=== PATIENT | male | born 1985 | race Caucasian/White ===

== ENCOUNTER 2018-08-05 05:25 | Emergency (ER) | payer MEDICAID, SELFPAY ==
[2018-08-05] VITALS (42 sets, daily range): BP systolic 112–135; BP diastolic 63–90; PULSE 63–81; RESP 6–20; TEMP 36.9; O2SAT 94–98
--- NOTE | 2018-08-05 05:45 | DI.RAD_ITS ---
SYMPTOM/DIAGNOSIS: BILATERAL CHEST PAIN PA AND LATERAL CHEST: Comparison is made with 17 July 2015. Cardiac and mediastinal contours have a normal appearance. The lungs are well inflated and clear. No infiltrate, effusion or pneumothorax is seen. IMPRESSION: Negative chest x-ray
--- NOTE | 2018-08-05 05:52 | ED.GENADUL_ITS ---
Discharge Plan Disposition Patient Disposition: HOME Condition: Improving Discharge Details Chief Complaint: Chest Pain Clinical Impression: Gastritis Primary Care Provider: Sin Leavitt ED Provider: Jovanny Marx Home Meds and New Rx's Prescriptions: New ranitidine HCl 150 mg capsule 150 mg PO DAILY Qty: 30 RF: 0 Continued albuterol sulfate 90 mcg/actuation HFA aerosol inhaler 2 puff IH QID PRNRF: 0 methocarbamol [Robaxin] 500 mg tablet 500 mg PO QID RF: 0 Discharge Instructions Instructions: Gastritis (ED) Additional Instructions: Continue efforts to decrease tobacco use by 50%. Begin Zantac as prescribed for 30 days, taken in the evening. Follow-up with Dr. Leavitt for recheck in 1-2 weeks. Call for an appointment time. Return to the emergency department for any acute concern. Discharge Data Discharge Date/Time-TO BE ENTERED AT DEPARTURE: 08/05/18 09:56 Medical Decision Making <Anibal Arndt MD - Last Filed: 08/10/18 08:02> 5:45 --32-year-old male smoker here with bilateral anterior chest pain with associated diaphoresis and shortness of breath that lasted 1-2 hours this morning. Now resolved. Hemodynamically stable. ECG reviewed and interpreted by me: Normal sinus rhythm 81 bpm, normal axis, no ischemic findings. Patient is low risk for ACS. Plan to check a troponin. Consider pneumothorax: will check cxr. Low risk for PE by Wells criteria: will check ddimer. 6:20 --chest x-ray reviewed and interpreted by me: Normal mediastinum, no pneumothorax. Initial trop negative <0.02. Plan for delta trop. ddimer pending. Mild hypomagnesemia. Will give 800mg mag ox PO. 7:30 -- Care signed out to Dr. Marx. <Jovanny Marx MD - Last Filed: 08/05/18 09:33> Received signout from Dr. Arndt pending repeat troponin. Please see his note regarding details of the patient's presentation, history, for details of the case. Improved, repeat troponin negative. Patient stable for outpatient management. 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 He notes intermittent episodes of gastric burning discomfort Modified by food choices over years time. I discussed with him decreasing his tobacco use and trialing 30 days of Zantac. He will follow-up with primary care for recheck in Dr. Tree leslie Lab Data Lab results reviewed: Yes I reviewed the patient's lab results. Laboratory Tests Range/Units 08/05/18 08/05/18 08/05/18 05:48 05:48 05:48 WBC (4.4-10.8) k/cumm 7.14 RBC (4.50-6.00) m/cumm 5.17 Hgb (13.5-17.5) g/dL 15.4 Hct (40.0-50.0) % 46.1 MCV (80-95) fL 89.2 MCH (27.0-33.0) pg 29.8 MCHC (32.0-36.0) g/dL 33.4 RDW (11.8-14.1) % 13.5 Plt Count (130-400) x1000/uL 227 MPV (8.0-11.0) fL 10.4 Immature Gran % 0.1 Neutrophils % 59.4 Lymphocytes % 27.2 Monocytes % 10.1 Eosinophils % 2.9 Basophils % 0.3 Absolute Neutrophils (1.2-6.7) k/cumm 4.24 Absolute Lymphocytes (1.2-3.4) k/cumm 1.94 Absolute Monocytes (0.11-0.7) k/cumm 0.72 H Absolute Eosinophils (0.0-0.7) k/cumm 0.21 Absolute Basophils (0.0-0.2) k/cumm 0.02 D-Dimer (<500) ng/mlFEU 112 Sodium (136-145) mmol/L 143 Potassium (3.5-5.1) mmol/L 3.8 Chloride (98-107) mmol/L 103 Carbon Dioxide (21.0-32.0) mmol/L 28.8 Anion Gap (3-11) mmol/L 11.2 H BUN (7-18) mg/dL 19 H Creatinine (0.70-1.30) mg/dL 1.10 Estimated GFR/1.73 m2 (mL/min/1.73m2) >= 60.00 Glucose (70-100) mg/dL 117 H Calcium (8.5-10.1) mg/dL 10.6 H Magnesium (1.8-2.4) mg/dL Total Bilirubin (0.2-1.0) mg/dL 0.3 AST (15-37) U/L 22 ALT (12-78) U/L 45 Alkaline Phosphatase (46-116) U/L 63 Troponin I (0.00-0.06) ng/mL Total Protein (6.4-8.2) g/dL 7.3 Albumin (3.4-5.0) g/dL 3.9 Range/Units 08/05/18 05:48 WBC (4.4-10.8) k/cumm RBC (4.50-6.00) m/cumm Hgb (13.5-17.5) g/dL Hct (40.0-50.0) % MCV (80-95) fL MCH (27.0-33.0) pg MCHC (32.0-36.0) g/dL RDW (11.8-14.1) % Plt Count (130-400) x1000/uL MPV (8.0-11.0) fL Immature Gran % Neutrophils % Lymphocytes % Monocytes % Eosinophils % Basophils % Absolute Neutrophils (1.2-6.7) k/cumm Absolute Lymphocytes (1.2-3.4) k/cumm Absolute Monocytes (0.11-0.7) k/cumm Absolute Eosinophils (0.0-0.7) k/cumm Absolute Basophils (0.0-0.2) k/cumm D-Dimer (<500) ng/mlFEU Sodium (136-145) mmol/L Potassium (3.5-5.1) mmol/L Chloride (98-107) mmol/L Carbon Dioxide (21.0-32.0) mmol/L Anion Gap (3-11) mmol/L BUN (7-18) mg/dL Creatinine (0.70-1.30) mg/dL Estimated GFR/1.73 m2 (mL/min/1.73m2) Glucose (70-100) mg/dL Calcium (8.5-10.1) mg/dL Magnesium (1.8-2.4) mg/dL 1.7 L Total Bilirubin (0.2-1.0) mg/dL AST (15-37) U/L ALT (12-78) U/L Alkaline Phosphatase (46-116) U/L Troponin I (0.00-0.06) ng/mL < 0.02 Total Protein (6.4-8.2) g/dL Albumin (3.4-5.0) g/dL HPI <Anibal Arndt MD - Last Filed: 08/10/18 08:02> General Mode of arrival: ambulatory . Date/Time Provider Initiated Documentation: 08/05/18 05:43 . Limitations to Documentation: no limitations . Information obtained by: patient . HPI Narrative: 32-year-old male smoker presents with chief complaint of chest pain. Patient notes that he has had intermittent chest pain that occurs monthly over the past year. Today he woke up around 2 AM with chest pain that was bilateral chest. Pain lasted about an hour and then resolved. He had associated diaphoresis and some shortness of breath. Patient has had a cough recently. Symptoms were moderate with no modifiers. He continues to have some mild chest pain over his sternum that is reproducible on palpation. Patient denies recent trauma. No recent long distance travel or immobility. No calf pain or lower extremity swelling. Related Data Home Medications Medication Instructions Recorded Confirmed albuterol sulfate HFA 90 2 puff IH QID PRN 05/06/18 08/05/18 mcg/actuation aerosol inhaler methocarbamol 500 mg tablet 500 mg PO QID 05/06/18 08/05/18 ranitidine HCl 150 mg PO DAILY #30 cap 08/05/18 Previous Rx's Medication Instructions Recorded ranitidine HCl 150 mg PO DAILY #30 cap 08/05/18 Allergies Allergy/AdvReac Type Severity Reaction Status Date / Time Penicillins Allergy Intermediate Skin Rash Unverified 08/05/18 07:00 Nuts AdvReac Intermediate scratchy Uncoded 08/05/18 07:00 throat, per pt General Stated Complaint: Chest Pain STEFAN: 2 Review of Systems <Anibal Arndt MD - Last Filed: 08/10/18 08:02> Review of Systems All systems reviewed & are unremarkable except as noted in HPI and below PFSH <Anibal Arndt MD - Last Filed: 08/10/18 08:02> Back pain (Chronic) Social History Smoking/Tobacco Use Status: Current every day Exam <Anibal Arndt MD - Last Filed: 08/10/18 08:02> Const General: cooperative and no acute distress HENMT Head: normocephalic and atraumatic Mouth: moist mucous membranes Eyes Conjunctivae: normal conjunctivae Sclera: normal sclerae Neck Neck: trachea midline and supple Resp Auscultation: clear to auscultation bilaterally, no rales, no rhonchi and no wheezes Cardio Jugular venous pressure: no JVD Rate: regular rate and not tachycardic Rhythm: regular rhythm GI Palpation: soft, not firm, no guarding, no masses, not rigid and nontender Skin General skin exam: no rashes or lesions noted Neuro General: alert, awake, oriented x3 and tone normal Extrem General: no calf tenderness and no edema Psych Appearance: grossly normal Mental Status: mental status grossly normal Speech and Movement: speech and movement normal Course <Anibal Arndt MD - Last Filed: 08/10/18 08:02> Vital Signs Temperature 36.9 C 08/05/18 05:29 Pulse 81 08/05/18 05:29 Respiratory Rate 18 08/05/18 05:29 Blood Pressure 135/90 08/05/18 05:29 Pulse Oximetry 98 08/05/18 05:29 Temperature 36.9 C 08/05/18 05:29 Temperature Source Temporal Artery Scan 08/05/18 05:29 Pulse 81 08/05/18 05:29 Respiratory Rate 20 08/05/18 05:39 Respiratory Effort Non-Labored 08/05/18 05:39 Respiratory Depth Normal 08/05/18 05:39 Respiratory Pattern Normal 08/05/18 05:39 Blood Pressure 135/90 08/05/18 05:29 Blood Pressure Position Sitting 08/05/18 05:29 Pulse Oximetry 98 08/05/18 05:29 Oxygen Delivery Method Room Air 08/05/18 05:29 Oxygen Flow Rate 0 08/05/18 05:29 Pain Level 0 08/05/18 05:29 Sign Out <Anibal Arndt MD - Last Filed: 08/10/18 08:02> Sign Out Data: Sign Out Comment: Follow-up delta trop and disposition patient. Last updated by Anibal Arndt MD at 08/05/18 07:36
[2018-08-05 05:56] LABS: Abs Immature Grans 0.01 k/cumm (0.0-0.09); Absolute Basophil Count 0.02 k/cumm (0.0-0.2); Absolute Eosinophil Count 0.21 k/cumm (0.0-0.7); Absolute Lymphocyte Count 1.94 k/cumm (1.2-3.4); Absolute Monocyte Count 0.72 k/cumm (0.11-0.7); Absolute Neutrophil Count 4.24 k/cumm (1.2-6.7); Basophils % 0.3; Eosinophils % 2.9; HCT 46.1 % (40.0-50.0); HGB 15.4 g/dL (13.5-17.5); Immature Grans % 0.1; Lymphocytes % 27.2; Mean Corp. HGB Concentration 33.4 g/dL (32.0-36.0); Mean Corpuscular Hemoglobin 29.8 pg (27.0-33.0); Mean Corpuscular Volume 89.2 fL (80-95); Mean Platelet Volume 10.4 fL (8.0-11.0); Monocytes % 10.1; Neutrophils % 59.4; Platelet Count 227 x1000/uL (130-400); RBC 5.17 m/cumm (4.50-6.00); RBC Distribution Width 13.5 % (11.8-14.1); White Blood Cell Count 7.14 k/cumm (4.4-10.8)
[2018-08-05 06:10] LABS: ALT 45 U/L (12-78); AST 22 U/L (15-37); Albumin 3.9 g/dL (3.4-5.0); Alkaline Phosphatase 63 U/L (46-116); Anion Gap 11.2 mmol/L (3-11); BUN 19 mg/dL (7-18); Bilirubin, Total 0.3 mg/dL (0.2-1.0); CO2 28.8 mmol/L (21.0-32.0); Calcium 10.6 mg/dL (8.5-10.1); Chloride 103 mmol/L (98-107); Glucose 117 mg/dL (70-100); Potassium 3.8 mmol/L (3.5-5.1); Sodium 143 mmol/L (136-145); Total Protein 7.3 g/dL (6.4-8.2)
[2018-08-05 06:13] LABS: Magnesium 1.7 mg/dL (1.8-2.4)
[2018-08-05 06:17] LABS: Troponin I < 0.02 ng/mL (0.00-0.06)
[2018-08-05 06:28] LABS: D-Dimer 112 ng/mlFEU (<500)
--- NOTE | 2018-08-05 06:48 | DI.VRAD_ITS ---
EXAM: XR Chest, 2 Views EXAM DATE/TIME: 08/05/2018 5:46 AM CLINICAL HISTORY: 32 years old, male; Pain; Chest pain; Other: Bilaterally TECHNIQUE: XR of the chest, 2 views. COMPARISON: CR CHEST 2 VIEWS PA,LAT 07/17/2015 6:42 PM FINDINGS: Lungs: Unremarkable. No consolidation. Pleural space: Unremarkable. No pleural effusion. No pneumothorax. Heart/Mediastinum: Unremarkable. No cardiomegaly. Bones/joints: Unremarkable. IMPRESSION: No acute intrathoracic process. Similar to previous. Dictated and Authenticated by: Eric Estrada MD. Ordering:RIC KEARNS MD
[2018-08-05] MEDS: Magnesium Oxide 400 MG TAB 800 MG PO (07:01)
[2018-08-05 09:16] LABS: Troponin I < 0.02 ng/mL (0.00-0.06)
== END 2018-08-05 09:56 | disposition home or self-care (01) ==
PROVIDERS: Student in an Organized Health Care Education/Training Program; Emergency Provider Emergency Medicine; PCP Family Medicine
DX: K29.00 Acute gastritis without bleeding (principal); E83.42 Hypomagnesemia
CPT/HCPCS: 36415; 80053; 93005; 99285; 71046; 83735; 84484; 85025; 85379; 93010; 99284

== ENCOUNTER 2019-02-08 16:13 | Emergency (ER) | payer MEDICAID, SELFPAY ==
--- NOTE | 2019-02-08 16:21 | NUR.NOTE ---
Nursing Note: pr slipped on a rock wile fishing [id number] landing on his left shoulder. pt states that he has dislocated it 5-9 times in the past and states that the symptoms are exactly the same
[2019-02-08 16:23] VITALS: BP 125/68; PULSE 73; RESP 18; TEMP 36.5; O2SAT 96
--- NOTE | 2019-02-08 16:53 | DI.RAD_ITS ---
SYMPTOM/DIAGNOSIS: POSTERIOR LATEARAL SHOULDER PAIN S/P FALL LEFT SHOULDER: Comparison is made with 08 December 2012. No fracture or dislocation is seen. There is mild spurring at the glenoid. There is no significant AC joint spurring. IMPRESSION: No acute abnormality.
--- NOTE | 2019-02-08 17:01 | ED.GENADUL_ITS ---
Discharge Plan Disposition Patient Disposition: HOME Discharge Details Chief Complaint: Orthopedic Clinical Impression: Injury of left shoulder Primary Care Provider: Sin Leavitt ED Provider: Omar Stuart Discharge Instructions Instructions: Shoulder Sprain (ED), Shoulder Pain (ED) Additional Instructions: X-rays were negative for fracture or dislocation in the emergency department. Wear a simple sling for comfort. Work on range of motion at home. If pain persists over the next 2 weeks you need to follow-up with orthopedics. Discharge Data Discharge Date/Time-TO BE ENTERED AT DEPARTURE: 02/08/19 17:49 Medical Decision Making This is a nontoxic-appearing 33-year-old male status post left shoulder injury. No acute skeletal injury on x-ray. Possible subluxation in the field. Neurovascularly intact. No head or neck trauma. C-spine nontender. Lungs clear to auscultation. Plan is to place patient into a simple sling. Will have him follow-up with orthopedics should pain persist. Imaging Data Radiologic Study: Radiologist's impression: CLINICAL HISTORY: 33 years old, male; Left; Patient HX: Posterior lateral shoulder pain S/P fall TECHNIQUE: Imaging protocol: XR Left shoulder. Views: 2 or more views. COMPARISON: CR LEFT SHOULDER COMPLETE 12/08/2012 10:52 AM FINDINGS: Bones/joints: Osseous anatomic alignment is well preserved. No acutely displaced fracture or dislocation. Joint spaces are well preserved. Soft tissues: Globular-like soft tissue densities seen posteriorly on the scapular Y-view are similar to the reference exam and most likely represent muscle density. No acute soft tissue findings. IMPRESSION: Negative for acute skeletal pathology HPI General Date/Time Provider Initiated Documentation: 02/08/19 16:19 . HPI Narrative: Patient is a 33-year-old male with significant past medical history for previous left shoulder subluxation/dislocations who presents to the emergency department today status post fall while fishing roughly 1 hour prior to arrival. Patient states that he landed directly on his left shoulder. He has pain the posterior lateral aspect of the shoulder. He denies any head or neck trauma. He does have a small abrasion to the left johnson. He has been able to perform gentle range of motion at the shoulder. He denies any left wrist or elbow pain. No numbness however reports mild tingling in the left hand. No shortness of breath or chest pain Related Data Allergies Allergy/AdvReac Type Severity Reaction Status Date / Time Penicillins Allergy Intermediate Skin Rash Unverified 02/08/19 16:25 Nuts AdvReac Intermediate scratchy Uncoded 02/08/19 16:25 throat, per pt General Stated Complaint: Orthopedic STEFAN: 3 Review of Systems Constitutional Denies headache(s) and Denies weakness ENT Denies dizziness, Denies headache(s) and Denies neck pain Cardiovascular Denies chest pain, Denies lightheadedness and Denies dyspnea Respiratory Denies dyspnea Gastrointestinal Denies abdominal pain Musculoskeletal Denies abnormal gait, Denies deformity, Denies neck pain, Denies numbness, Reports radiating pain into limb, Denies stiffness and Reports tingling Integumentary/Breasts Reports wounds Neurologic Denies abnormal gait, Denies dizziness, Denies headache(s), Denies focal weakness, Denies numbness, Denies sensory deficit, Reports tingling and Denies weakness PFSH Medical History Back pain (Chronic) Social History Smoking/Tobacco Use Status: Current every day Tobacco Type: cigarettes and smokeless tobacco Alcohol Intake: current Alcohol Intake frequency: a few times a week Drug use: Daily Substance use type: marijuana Do you feel safe at home: Yes Do you feel safe in your relationship?: Yes Exam Const General: cooperative, healthy appearing and no acute distress Orientation: alert, awake and oriented x3 HENMT Head: normal to inspection General nose exam: external nose normal Face and sinus: normal facial exam Eyes General: appearance normal, both eyes and all related structures Alignment and Position: alignment normal EOM: EOM intact bilaterally Neck Neck: normal visual inspection, full ROM, no lymphadenopathy and supple Chest Chest: normal inspection of the chest and normal palpation of entire chest wall Resp Effort & Inspection: normal respiratory effort and able to speak in complete sentences Auscultation: clear to auscultation bilaterally Cardio Palpation: normal PMI Rate: regular rate Rhythm: regular rhythm Heart Sounds: S1 normal and S2 normal Pulses: normal peripheral pulses GI Inspection: normal to inspection Palpation: soft Back/Spine/Pelvis Cervical Spine: normal cervical lordosis and cervical ROM normal Thoracic/Lumbar Spine: thoracic and lumbar spine normal to inspection Neuro Motor: muscle tone normal throughout Sensory Exam: no sensory deficits noted Extrem Other: Several small superficial abrasions to the left anterior medial johnson Course Vital Signs Temperature 36.5 C 02/08/19 16:23 Pulse 73 02/08/19 16:23 Respiratory Rate 18 02/08/19 16:23 Blood Pressure 125/68 02/08/19 16:23 Pulse Oximetry 96 02/08/19 16:23 Temperature 36.5 C 02/08/19 16:23 Temperature Source Skin 02/08/19 16:23 Pulse 73 02/08/19 16:23 Respiratory Rate 18 02/08/19 16:23 Respiratory Effort 02/08/19 16:26 Blood Pressure 125/68 02/08/19 16:23 Blood Pressure Position Sitting 02/08/19 16:23 Pulse Oximetry 96 02/08/19 16:23 Oxygen Delivery Method Room Air 02/08/19 16:23 Oxygen Flow Rate 0 02/08/19 16:23 Pain Level 10 02/08/19 16:23
--- NOTE | 2019-02-08 17:14 | DI.VRAD_ITS ---
EXAM: XR Left Shoulder EXAM DATE/TIME: 02/08/2019 4:36 PM CLINICAL HISTORY: 33 years old, male; Left; Patient HX: Posterior lateral shoulder pain S/P fall TECHNIQUE: Imaging protocol: XR Left shoulder. Views: 2 or more views. COMPARISON: CR LEFT SHOULDER COMPLETE 12/08/2012 10:52 AM FINDINGS: Bones/joints: Osseous anatomic alignment is well preserved. No acutely displaced fracture or dislocation. Joint spaces are well preserved. Soft tissues: Globular-like soft tissue densities seen posteriorly on the scapular Y-view are similar to the reference exam and most likely represent muscle density. No acute soft tissue findings. IMPRESSION: Negative for acute skeletal pathology. Dictated and Authenticated by: Zhao Holman MD. Ordering:MARIA INES Nelson MD
[2019-02-08 17:48] VITALS: BP 116/77; PULSE 64; RESP 16; O2SAT 96
== END 2019-02-08 17:49 | disposition home or self-care (01) ==
PROVIDERS: Emergency Provider Physician Assistant; PCP Family Medicine
DX: M25.512 Pain in left shoulder (principal); W01.0XXA Fall on same level from slipping, tripping and stumbling without subsequent striking against object, initial encounter
CPT/HCPCS: 99283; 73030; 99282; L3650

== ENCOUNTER 2020-09-14 16:24 | Outpatient (REF) | payer MEDICAID, SELFPAY ==
[2020-09-16 18:20] LABS: COVID-19 RT-PCR Result NEGATIVE (Negative)
== END 2020-09-14 16:44 ==
LOC: LBN 16:24
PROVIDERS: Visit Provider Nurse Practitioner Family
DX: Z11.52 Encounter for screening for COVID-19 (principal)
CPT/HCPCS: U0003

== ENCOUNTER 2020-09-17 01:53 | Outpatient (CLI) | payer MEDICAID, SELFPAY ==
[2020-09-17 15:36] LABS: Abs Immature Grans 0.01 10^3/uL (0.0-0.06); Absolute Basophil Count 0.04 10^3/uL (0.0-0.2); Absolute Eosinophil Count 0.26 10^3/uL (0.0-0.7); Absolute Lymphocyte Count 2.73 10^3/uL (1.2-3.4); Absolute Monocyte Count 0.68 10^3/uL (0.1-0.8); Basophils % 0.5; Eosinophils % 3.5; HGB 14.9 g/dL (13.5-17.5); Immature Grans % 0.1; Lymphocytes % 36.8; MCH 29.9 pg (27.0-33.0); MCHC 33.9 % (32.0-36.0); MCV 88.4 fL (80-95); MPV 10.5 fL (8.0-11.0); Monocytes % 9.2; Neutrophils % 49.9; Nucleated RBC 0 %; Platelet Count 222 10^3/uL (130-400); RBC 4.98 10^6/uL (4.36-5.78); RDW 12.7 % (11.8-14.1); RDW-SD 41.2 fL; WBC 7.42 10^3/uL (4.4-10.8)
[2020-09-17 15:37] LABS: Bilirubin Negative (Negative); Blood Trace-intact (Negative); Clarity Clear (Clear); Glucose Negative (Negative); Ketones Negative (Negative); Leukocyte Esterase Negative (Negative); Nitrite Negative (Negative); Specific Gravity >= 1.030 (1.005-1.025); Urobilinogen 0.2 EU/dL (Up TO 0.2)
[2020-09-17 15:45] LABS: Bacteria Negative HPF (Negative); C & S Indicated? No; Casts Negative LPF (Negative); Crystals Negative HPF (Negative); Epithelial Cells Rare HPF (Negative); Mucus Negative (Negative); RBC 0-2 HPF (0-2); WBC 0-2 HPF (0-5)
[2020-09-17 16:41] LABS: ALT 34 U/L (16-63); Alkaline Phosphatase 80 U/L (46-116); Anion Gap 5.7 mmol/L (3-11); BUN 18 mg/dL (7-18); Bilirubin, Total 0.2 mg/dL (0.2-1.0); CO2 31.3 mmol/L (21.0-32.0); Chloride 103 mmol/L (98-107); Glucose 83 mg/dL (74-106); Potassium 4.1 mmol/L (3.5-5.1); Sodium 140 mmol/L (136-145); Total Protein 7.3 g/dL (6.4-8.2)
[2020-09-17 17:24] LABS: AST 22 U/L (15-37)
== END 2020-09-17 02:13 ==
PROVIDERS: Nurse Practitioner Family
DX: R10.33 Periumbilical pain (principal); K59.00 Constipation, unspecified
CPT/HCPCS: 36415; 80053; 74019; 81003; 81015; 85025

== ENCOUNTER 2020-09-17 03:47 | Outpatient (CLI) | payer MEDICAID, SELFPAY ==
--- NOTE | 2020-09-17 15:08 | DI.RAD_ITS ---
EXAM: 2D digital imaging was performed. CLINICAL HISTORY: abdominal pain, constipation,K59.00,R10.33. COMPARISON: No exams were available for comparison TECHNIQUE: Supine and uprightSupine and Lateral views of the abdomen was performed. FINDINGS: LUNG BASES: Clear. BOWEL GAS PATTERN: Nondistended. There is a moderate amount of retained stool. FREE AIR: None. CALCIFICATIONS: No radiopaque calcifications. OSSEOUS STRUCTURES: Normal for age. OTHER FINDINGS: None. IMPRESSION: Moderate amount of retained stool. DATA REPOSITORY: RADIATION DOSE DELIVERED:
== END 2020-09-17 04:07 ==
PROVIDERS: Visit Provider Nurse Practitioner Family
DX: K59.00 Constipation, unspecified (principal); R10.33 Periumbilical pain
CPT/HCPCS: 74019

== ENCOUNTER 2020-10-04 16:46 | Emergency (ER) | payer MEDICAID, SELFPAY ==
--- NOTE | 2020-10-04 17:03 | ED.GENADUL_ITS ---
Discharge Plan Disposition Patient Disposition: HOME Condition: Good Discharge Details Clinical Impression: Constipation Primary Care Provider: Lia Marino ED Provider: Crystal Brooks Home Meds and New Rx's Prescriptions: Continued famotidine [Acid Boardmarker (famotidine)] 20 mg tablet 20 mg PO DAILY Qty: 30 RF: 1 buprenorphine-naloxone [Suboxone] 8-2 mg film 2 film sublingual DAILY RF: 0 Discharge Instructions Instructions: Constipation (ED) Additional Instructions: Please continue to encourage water intake. You may continue with MiraLAX as previously advised by your primary care. Please try magnesium citrate which available [id number] as a laxative. Please follow instructions on the bottle for dosing. Please follow-up with primary care in the next week for reevaluation. If you develop fever/chills, abdominal pain or other new/worsening symptoms seek care urgently once again. Referrals: Lia Marino, [employer] TECHNICIAN [Primary Care Provider] - Medical Decision Making Patient pleasant 34-year-old male presenting today with chief complaint of stomach gurgling and constipation. He reports especially the past 2 weeks. Denies any fevers or chills. No abdominal pain. Denies any nausea vomiting. States that he feels like his appetite is diminished because he is full quickly. Has been passing flatus normally. No previous abdominal surgeries. He has not had issues like historically. States that he did speak with his primary care and was advised to start on MiraLAX. He reports that he also has blood work and imaging since the onset of symptoms. He states that he was scheduled to see primary care today but secondary to probably their office was, his appointment was canceled. Patient reports that he has had diverticulitis historically but that denies abdominal discomfort do not feel like this. On exam, patient is resting comfortably. His abdominal exam is benign with no tenderness elicited with palpation. No CVA tenderness. No peritoneal findings. Rectal exam was performed in the office, with negative stool, no fecal impaction I did review the patient lab has been ordered recently by his primary care for evaluation of his disease. No leukocytosis. Stable H&H. No abnormalities on CMP. Patient did have elevated specific gravity but otherwise no significant on his UA. Imaging was also reviewed. Patient was noted to have moderate amount of complaints. He and I discussed these findings at length. He and I discussed treatment options. Patient prefers to be discharged home and try something other than MiraLAX to help with constipation. Encourage water intake. I encouraged increased fiber in his diet. He will use magnesium citrate to help with bowel movements. Encourage close follow-up with primary care. Return precautions were discussed. All of his questions and concerns were addressed and he is agreement this plan. HPI General Mode of arrival: ambulatory . Date/Time Provider Initiated Documentation: 10/04/20 17:03 . Limitations to Documentation: no limitations . Information obtained by: patient, RN notes reviewed and old records reviewed . History of Present Illness 34 year old M presents to the emergency department with the chief complaint of constipation, abdominal gurgling, described as moderate, with intensity rated at 4. Quality is described as other (cramping and gurgling), and is localized to the abdomen. Patient reports no radiation. Patient started experiencing this week(s) ( 2) and it has been constant. No relieving factors improve symptom(s), No exacerbating factors reported . Patient notes no other symptoms.. Patient did receive the follo wing treatments prior to arrival, other (miralax) Related Data Home Medications Medication Instructions Recorded Confirmed buprenorphine 8 mg-naloxone 2 mg 2 film SUBLINGUAL DAILY ea 09/14/20 10/04/20 sublingual film famotidine 20 mg tablet 20 mg PO DAILY #30 tab 09/14/20 10/04/20 Previous Rx's Medication Instructions Recorded famotidine 20 mg tablet 20 mg PO DAILY #30 tab 09/14/20 Allergies Allergy/AdvReac Type Severity Reaction Status Date / Time Penicillins Allergy Intermediate Skin Rash Unverified 10/04/20 17:46 Nuts AdvReac Intermediate scratchy Uncoded 10/04/20 17:46 throat, per pt General STEFAN: 3 Review of Systems Constitutional Constitutional: Reports as per HPI, Denies chills, Denies fatigue, Denies fever(s) and Denies headache(s) ENT Ears, Nose, Mouth, and Throat: Denies headache(s) Cardiovascular Cardiovascular: Reports as per HPI, Denies chest pain and Denies dyspnea Respiratory Respiratory: Reports as per HPI, Denies cough and Denies dyspnea Gastrointestinal Gastrointestinal: Reports as per HPI Genitourinary Genitourinary: Denies system reviewed and no additional complaints, except as documented (patient denies any change in urinary habits) Musculoskeletal Musculoskeletal: Reports as per HPI and Denies back pain Integumentary/Breasts Skin/Breast: Reports as per HPI and Denies rash Neurologic Neurologic: Reports as per HPI and Denies headache(s) Endocrine Endocrine: Denies fatigue [facility] Medical History (Updated 10/04/20 @ 18:26 by OSITO Warren) Back pain Social History Smoking/Tobacco Use Status: Current every day Tobacco Type: cigarettes and smokeless tobacco Smoking risk assessment performed?: Yes Alcohol Intake: current Alcohol Intake frequency: a few times a month Drug use: Daily Substance use type: marijuana Do you feel safe at home: Yes Do you feel safe in your relationship?: Yes Exam Const General: cooperative, healthy appearing, comfortable, no acute distress and well developed Nutritional Appearance: average body habitus and well nourished Orientation: alert and awake HENMT Head: normal to inspection Mouth: moist mucous membranes Resp Effort & Inspection: normal respiratory effort, able to speak in complete sentences and no respiratory distress Auscultation: clear to auscultation bilaterally, no rales, no rhonchi and no wheezes Cardio Rate: regular rate Rhythm: regular rhythm Heart Sounds: S1 normal and S2 normal GI Inspection: normal to inspection Palpation: soft, no hepatosplenomegaly, not firm, no guarding, no hernias, no masses, no pulsatile masses, nontender and No ascites Percussion: normal to percussion Auscultation: normal bowel sounds Rectal Exam: visual inspection normal, normal sphincter tone, prostate normal, No fecal impaction, heme negative stool and No tenderness Back/Spine/Pelvis Back: no CVA tenderness Skin General skin exam: no rashes or lesions noted Trauma: no lacerations or abrasions Neuro General: patient alert and patient awake Cognition: normal cognition Speech: speech normal Gait: normal gait Psych Appearance: grossly normal and well kempt Mental Status: mental status grossly normal Speech and Movement: speech and movement normal
[2020-10-04 17:42] VITALS: BP 130/72; PULSE 67; RESP 18; TEMP 36.7; O2SAT 98
[2020-10-04 18:40] VITALS: BP 113/74; PULSE 68; RESP 16; TEMP 36.6; O2SAT 98
== END 2020-10-04 21:07 | disposition home or self-care (01) ==
PROVIDERS: Emergency Provider Physician Assistant
DX: K59.09 Other constipation (principal)
CPT/HCPCS: 99282; 99283

== ENCOUNTER 2021-11-28 18:28 | Outpatient (REF) | payer MEDICAID, SELFPAY ==
[2021-11-30 11:34] LABS: COVID-19 RT-PCR UVMMC Result Negative (Negative)
== END 2021-11-28 18:29 | disposition home or self-care (01) ==
LOC: LBN 18:28
PROVIDERS: PCP Nurse Practitioner Family; Visit Provider Nurse Practitioner Family
DX: Z20.822 Contact with and (suspected) exposure to COVID-19 (principal)
CPT/HCPCS: U0003

== ENCOUNTER 2022-03-13 01:28 | Outpatient (CLI) | payer MEDICAID, SELFPAY ==
--- OUTSIDE RECORDS SUMMARY | 2022-03-13 01:30 | XMS_ITS | Encounter Summary ---
:1985 Author Organization [facility] Address [address] [place] [address] Care Team Providers Name Role Phone Jamarcus Mccallum MD Primary Care Provider Unavailable Encounter Details Date Type Department Care Team Description 12/13/2011 Results Only [facility] Amy Hill, DO [phone] [facility] [address] (Wo rk) Social History Tobacco Use Types Packs/Day Years Used Date Never Assessed Sex Assigned at Date Recorded Not on file documented as of this encounter Plan of Treatment Not on filedocumented as of this encounter Procedures Procedure Name Priority Date/Time Associated Diagnosis Comme [facility] SURGICAL PATHOLOGY Routine 12/13/2011 0:00 EDT Re sults for this procedure are i n the results section. documented in this encounter Results SURGICAL PATHOLOGY (12/13/2011 0:00 EDT) Pathology Report: SURGICAL PATHOLOGY REPORT HENRRY CEDENO Reports generated via electronic interface contain lauren ginal data; LAB however they are lacking the format of the original re port. Caution should be taken when reading/interpreting unfo rmatted reports. Name: ? RADHA CABRERA ? Accession #: ? [id number] ? : ? 1985 (Age: 26) ??M ? Collect Date: ? 12/13/2011 ? Location: ? [facility] ? Receive Date: ? 012 ? Provider: AMY HILL DO Copy to: BEBA MCNEILL ? Final Pathologic Diagnosis: ? Soft tissue, cyst, excision: - Pilonidal cyst and fistula tract. ??See comment. Comment: ? The cyst and fistula tract appear entirel y excised. ??(Dr. Ely)/sandy Document reviewed and electronically signed by: ILDEFONSO ELY MD Report ??Date: 12/15/2011 13:02 By the signature above, the attending physician certif ies that he/she has personally conducted a gross and/or microscopic examin ation of the described specimens and rendered or confirmed the above diagnosi s. Specimen(s) Received: ? Pilonidal cyst tract Clinical History: ? Pilonidal cyst Gross Description: ? Received in formalin labelled Cabrera, Radha and pilonidal cyst tract is a 6.5 x 2.0 cm unoriented elliptical excision of krause-whi te hairbearing skin excised to an average depth of 1.6 cm. ??Running along the entire length of the skin, there is a curvilinear crease that has numerous defects through the epidermal surface into the u nderlying soft tissue with exuding krause-red granular soft tissue and hair. ??The margins are entirely inked black. ??Sectioning reveals a krause-red focally hemorrhagic tract coursing through t he soft tissue of the specimen that has a maximum diameter of 0.6 cm and focally contains hair. ??This tract is 0.2 cm from the gurpreet rest black inked resection margin, and is surrounded by dense krause-white fibrous tissue. ??Paper Reel Operator ce ntral sections of the specimen are submitted in (A1) and (A2) and the tips are submitted reverse en face in (A3). ??(Barbara Martínez/[facility] End of Report Specimen Performing Organization Address City/State/ZIP Code Phon e Number [facility] [address] [place] [address] SERVICES [facility] [address] [place] [address] documented in this encounter Visit Diagnoses Not on filedocumented in this encounter Care Teams Holter Scanning Technician Relationship Specialty Start Date End Date Jamarcus Mccallum MD PCP - General 02/10/11 12/14/11 documented as of this encounter
--- OUTSIDE RECORDS SUMMARY | 2022-03-13 01:30 | XMS_ITS | Encounter Summary ---
:[address] [facility] Address [address] [place] [address] Care Team Providers Name Role Phone Sin Leavitt MD Primary Care Provider Unavailable Encounter Details Date Type Department Care Team Description 11/29/2021 Lab Requisition [facility] Outr Resulting Lab, Pathology & Laboratory Provider [facility] [address] [place] [address] Social History Tobacco Use Types Packs/Day Years Used Date Current Some Day Smoker Smokeless Tobacco: Current User Chew Alcohol Use Standard Drinks/Week Comments No 0 (1 standard drink = 0.6 oz pure alcoho l) Sex Assigned at Date Recorded Not on file documented as of this encounter Plan of Treatment Not on filedocumented as of this encounter Procedures Procedure Name Priority Date/Time Associated Diagnosis Comme nts COVID-19 TEST [facility] Today 11/28/2021 8:45 EDT LAB PCR COVID-19 TESTING Routine 11/28/2021 8:45 EDT Resu lts for this procedure are i n the results section. documented in this encounter Results COVID-19 TEST [facility] PCR (11/28/2021 8:45 EDT) Specimen Swab Performing Organization Address City/State/ZIP Code Phon e Number [facility] [address] [place] [address] SERVICES COVID-19 TESTING (11/28/2021 8:45 EDT) COVID-19 rt-PCR Negative Negative [facility] Result Comment: [facility] This test has not been FDA c leared or approved. This test has been authorized by FDA under an EUA for use by authorized laboratories. This test has been authorized only for detection of nucleic acid fro SERVICES m 2018-nCoV, not for any oth er viruses or pathogens. This test is only authorized for the duration of the declaration that circumstances exist justifying the authorization of emergency use of in vitro d iagnostic tests for detectio n and/or diagnosis of 2019-nCoV under section 564(b)(1) of Act, 21 U.S.C ?? 360bbb-3(b) (1), unless the authorization is terminated or revoked sooner. Negative results do not prec lude 2019-nCoV infection and should not be used as the sole basis for treatment or other patient management decisions. Negative results must be combined with clinical observa tions, patient history, and epidemiological informatio n. Testing was performed using the ronal SARS-CoV-2 assay ([employer] on the Ronal 6800 System Performing Lab Ronal [address] [facility] SERVICES Specimen Swab Performing Organization Address City/State/ZIP Code Phon e Number [facility] [address] [place] [address] SERVICES documented in this encounter Visit Diagnoses Not on filedocumented in this encounter Care Teams Dental Chair Assembler Relationship Specialty Start Date End Date Sin Leavitt MD PCP - General 09/13/16 documented as of this encounter
--- OUTSIDE RECORDS SUMMARY | 2022-03-13 01:30 | XMS_ITS | Clinical Summary ---
:1985 Author Organization [facility] [place] [address] Care Team Providers Name Role Phone Sin Leavitt MD Primary Care Provider Allergies Active Allergy Reactions Severity Noted Date Comments Penicillins Hives 03/23/2019 Social History Tobacco Use Types Packs/Day Years Used Date Never Assessed Sex Assigned at Date Recorded Not on file Last Filed Vital Signs Vital Sign Reading Time Taken Comments Blood Pressure 115/62 03/23/2019 11:00 PM EDT Pulse 73 03/23/2019 11:00 PM EDT Temperature 37.1 ??C (98.7 ??F) 03/23/2019 6:52 PM EDT Respiratory Rate 13 03/23/2019 11:00 PM EDT Oxygen Saturation 98% 03/23/2019 11:00 PM EDT Inhaled Oxygen Concentration - - Weight 90.7 kg (200 lb) 03/23/2019 6:52 PM EDT Height - - Body Mass Index - - Plan of Treatment Health Maintenance Due Date Last Done Comments Covid-19 Vaccine (#1) 11/11/1988 HIV screen 11/11/2001 Hepatitis C Screening 11/11/2001 Lipid Screening 11/11/2001 Tdap adult 11/11/2002 Tetanus vaccine 11/11/2002 Influenza (Flu) vaccine ( - Influenza standard 04/27/2022 series) Care Teams Picker Box Operator Relationship Specialty Start Date End Date Sin Leavitt MD PCP - General Family Medicine 03/23/[address] [place], [place] [address]
--- OUTSIDE RECORDS SUMMARY | 2022-03-13 01:30 | XMS_ITS | Encounter Summary ---
:1985 Author Organization [facility] Address [address] [place] [address] Care Team Providers Name Role Phone Sin Leavitt MD Primary Care Provider Unavailable Reason for Visit Reason Comments Act 1 Clearance pt to the emergency departme nt for ACT 1 clearance. Pt at act 1 for opiate addiction, last used yesterday morning. Encounter Details Date Type Department Care Team Description 09/13/2016 Emergency [facility] Jason Bright PA-C [address] [facility] [place] [address] Opioid withdrawal Emergency Department Emergency[place] [place] - [facility] [address] [place] [address] Social History Tobacco Use Types Packs/Day Years Used Date Current Some Day Smoker Smokeless Tobacco: Current User Chew Alcohol Use Standard Drinks/Week Comments No 0 (1 standard drink = 0.6 oz pure alcoho l) Sex Assigned at Date Recorded Not on file documented as of this encounter Last Filed Vital Signs Vital Sign Reading Time Taken Comments Blood Pressure 111/73 09/13/2016 1217 EST Pulse 85 09/13/2016 1217 EST Temperature 37.1 ??C (98.8 ??F) 09/13/2016 1010 EST Respiratory Rate 16 09/13/2016 1217 EST Oxygen Saturation 100% 09/13/2016 1217 EST Inhaled Oxygen Concentration - - Weight 86.2 kg (190 lb) 09/13/2016 1010 EST Height 172.7 cm (5' 8) 09/13/2016 1010 EST Body Mass Index 28.89 09/13/2016 1010 EST documented in this encounter Discharge Diagnoses Diagnosis F11.23 Opioid dependence with withdrawal -F11.23[ICD-10-CM] F17.220 Nicotine dependence, chewing tob acco, uncomplicated-F17.220[ICD-10-CM] J45.909 Unspecified asthma, uncomplicate d-J45.909[ICD-10-CM] documented in this encounter Discharge Instructions InstructionsMatty Brgiht PA - 09/13/2016 Follow-up directly with ACT 1. Feeling anxiety is a normal part of withdrawal from substance. However, if your symptoms are not controlled, if you are having thoughts of hurting or killing yourself or hurting someone else, you should return to the ED for further evaluation. AttachmentsThe following attachments cannot be sent through Care Everywhere. HEROIN USE AND WITHDRAWAL: GENERAL INFO (BULGARIAN)documented in this encounter Medications at Time of Discharge Medication Sig Dispensed Refills Start Date End Date LORazepam (ATIVAN) 1 mg 1mg po q6hrs for first 15 Tab 0 09/13/2016 tablet 48 hours PRN, then frequency as per bridge protocol oxyCODONE 5 mg capsule Take 5 mg by mouth 0 every 6 hours. documented as of this encounter Ordered Prescriptions Prescription Sig Dispensed Refills Start Date End Date LORazepam (ATIVAN) 1 mg 1mg po q6hrs for first 15 Tab 0 09/13/2016 tablet 48 hours PRN, then frequency as per bridge protocol documented in this encounter Discharge Disposition Disposition Code Departure Means Destination Discharged to Other Facility documented in this encounter ED Notes Luh Madrid RN - 09/13/2016 1218 EST Pt in NAD at time of d/c, VSS. Reviewed d/c instructions reviewed with pt thoroughly, paperwork given to hotel security officer to give to ACT 1 staff member. Pt verbalizes understand of instructions. Luh Cardona RN - 09/13/2016 1155 EST [facility], skin is pink, warm and dry, respirations unlabored. Applied Clonidine patch to R arm per order. Will dispo with paperwork is available. Matty Oneil PA - 09/13/2016 1134 EST DOS: 09/13/2016 Chief Complaint Patient presents with ??? Act 1 Clearance pt to the emergency department for ACT 1 clearance. Pt at act 1 for opiate addiction, last used yesterday morning. HPI HPI Comments: I, Rabia Bai, am scribing for Matty Bright PA while he/she is personally performing the service. Rabia Bai 09/13/2016 11:34 Radha Cabrera is a 30 y.o. male with a history of opiate abuse who presents to the ED for ACT 1 clearance. He states he has been using opiates for five years and last used yesterday (six oxycodone tablets). He was seen at [facility] this morning and would like help to stop using opiates. He feels diaphoretic and feels tremors in his hands bilaterally. He does endorse back pain currently, which has been present for years now and he had back surgery in June of last year. He didn't eat breakfast this morning. No nausea or vomiting. Denies difficulty walking, chest pain, SOB, abdominal pain, fevers, chills,headaches, lightheadedness, dizziness. No IVDU. Additional social history: No cigarette smoking The history is provided by the patient and medical records. Review of Systems Review of Systems Constitutional: Positive for appetite change. Negative for chills and fever. Respiratory: Negative for shortness of breath. Cardiovascular: Negative for chest pain. Gastrointestinal: Negative for abdominal pain, nausea and vomiting. Musculoskeletal: Positive for back pain. Negative for gait problem. Skin: Negative for wound. Neurological: Negative for dizziness, light-headedness and headaches. Psychiatric/Behavioral: Negative for agitation, behavioral problems and confusion. All other systems reviewed and are negative. The patient's past medical, family and social history was reviewed and updated as needed. Allergies Allergen Reactions ??? Penicillins Vital Signs Temp: 37.1 ??C (98.8 ??F) Temp src: Temporal Pulse: 90 Resp: 14 SpO2: 99 % BP: 108/79 Physical Exam Constitutional: He is oriented to person, place, and time. He appears well- developed and well-nourished. No distress. HENT: Head: Normocephalic and atraumatic. Eyes: Conjunctivae and EOM are normal. Pupils are equal, round, and reactive to light. Neck: Normal range of motion. Neck supple. No tracheal deviation present. Cardiovascular: Normal rate, regular rhythm, normal heart sounds and intact distal pulses. No murmur heard. Pulmonary/Chest: Effort normal and breath sounds normal. No respiratory distress. He has no wheezes. Abdominal: Soft. Bowel sounds are normal. He exhibits no distension. There is no tenderness. Musculoskeletal: Normal range of motion. He exhibits no edema. Neurological: He is alert and oriented to person, place, and time. Skin: Skin is warm and dry. No rash noted. Psychiatric: He has a normal mood and affect. Nursing note and vitals reviewed. Procedures ED COURSE A medical screening exam was performed. 30 year old male here for ACT 1 clearance. He complains of back pain and tremors at this time. He appears well on exam, is cooperative and is medically cleared for ACT 1. Provided 1 clonidine patch in the ED. Discharged to ACT 1. Return precautions given by myself. ASSESSMENT AND PLAN Final diagnoses: None DISPOSITION: No disposition on file The patient's pain was managed to an adequate level weighing risk vs. benefit of further medications. Upon departure from the Emergency Department, the patient's pain was 0 on a zero to ten scale. Condition at departure from the Emergency Department: Improved PCP: Sin Leavitt [facility] Number of Diagnoses or Management Options Opioid withdrawal: Amount and/or Complexity of Data Reviewed Review and summarize past medical records: yes This documentation is recorded by Rabia Bai acting as Scribe under the direction and presence of Matty Bright PA. Matty Bright PA: I personally performed the services recorded by the scribe in my presence. Iconfirm the scribe's documentation has been reviewed by me to accurately and completely record my work, treatment, procedures, and medical decision making. 09/13/2016 11:59 No flowsheet data found. Anna Carolina - 09/13/2016 0958 EST TCALL: RADHA CABRERA, 81, REFERRED BY ACT 1, MEDICAL CLEARANCE FOR OPIATES. (CDW) documented in this encounter Plan of Treatment Not on filedocumented as of this encounter Visit Diagnoses Diagnosis Opioid withdrawal (HCC-CMS) (HCC) - Prim mike Drug withdrawal documented in this encounter Administered Medications Inactive Administered Medications - up to 3 most recent administrations Medication Order MAR Action Action Date Dose Rate Site cloNIDine (CATAPRES) 0.2 Patch Applied 09/13/2016 11:55 EST 1 Patch Right Arm mg/24 hr patch 1 Patch 1 Patch, transdermal, Administer over 7 Days, NOW X1, 1 dose, On Sun09/13/16 at 1145, STAT Lorazepam 1 mg Tab??STARTER PACK Given 09/13/2016 12:17 EST 1 Package 1 Package, oral, NOW X1, 1 dose, On Sun09/13/16 at 1215, STAT documented in this encounter Historical Medications This list may reflect changes made after this encounter. Medication Sig Dispensed Refills Start Date End Date oxyCODONE 5 mg capsule Take 5 mg by mouth every 0 6 hours. added in this encounter Active and Recently Administered Medications Times are shown in EST. Scheduled Medication Order 09/11/2016 09/12/2016 09/13/2016 cloNIDine (CATAPRES) 0.2 mg/24 hr patch 1 Patch 1155 (Patch Applied - Provider: Luh Madrid, RN) 1 Patch, transdermal, Administer over 7 Days, NOW X1, 1 dose, Sun09/13/16 at 1145, STAT Lorazepam 1 mg Tab??STARTER PACK (COMPLETED) 1217 (Given - Provider: Luh Madrid, RN) 1 Package, oral, NOW X1, 1 dose, On Sun09/13/16 at 1215, STAT documented in this encounter Care Teams Battery Container Tester Relationship Specialty Start Date End Date Sin Leavitt MD PCP - General 09/13/16 documented as of this encounter
--- OUTSIDE RECORDS SUMMARY | 2022-03-13 01:30 | XMS_ITS | Encounter Summary ---
:[address] [facility] [place] Address [address] [place] [address] Care Team Providers Name Role Phone Sin Leavitt MD Primary Care Provider Unavailable Encounter Details Date Type Department Care Team Description 09/15/2020 Lab Requisition [facility] Outr Resulting Lab, Pathology & Laboratory Provider [facility] [address] [place], [place] [id number] Social History Tobacco Use Types Packs/Day Years Used Date Current Some Day Smoker Smokeless Tobacco: Current User Chew Alcohol Use Standard Drinks/Week Comments No 0 (1 standard drink = 0.6 oz pure alcoho l) Sex Assigned at Date Recorded Not on file documented as of this encounter Plan of Treatment Not on filedocumented as of this encounter Procedures Procedure Name Priority Date/Time Associated Comments Diagnosis DO NOT ORDER Today 09/14/2020 14:30 Results for this STANDALONE - BROAD EST procedure are in COVID TEST the results section. COVID-19 TESTING Routine 09/14/2020 14:30 Results for this EST procedure are i n the results section. documented in this encounter Results DO NOT ORDER STANDALONE - BROAD COVID TEST (09/14/2020 14:30 EST) COVID-19 rt-PCR NEGATIVE Negative [facility] Result Comment: LABORATORY 2019-novel Coronavirus (2019 -nCoV) not detected by the qRT-PCR assay. Consider testing for other respiratory viruses or re-collecting for 2019-nCoV testing. Note: Optimum timing for peak viral levels du ring infections caused by 20 -nCoV have not been determined. Collection of multiple specimens from the same patient may be necessary to detect the virus. Limitations Positive results are indicat julio of active infection with SARS-CoV-2 but do not rule out bacterial infection or co-infection with other viruses. The agent detected may not be the definite cause of diseas e. In addition, detection of viral RNA may not indicate the presence of infectious virus or that SARS-CoV-2 is the causative agent for clinical symptoms. Negative results do not prec lude SARS-CoV-2 infection and should not be used as the sole basis for patient management decisions. Negative results must be combined with clinical observations, patient his tory, and epidemiological in formation. False negative results may also occur if amplification inhibitors are present in the specimen or if inadequate numbers of organisms are present in the specimen. Op timum specimen types and nori ing for peak viral levels during infections caused by SARS-CoV-2 have not been fully determined. Collection of multiple specimens (types and time points) from the same patient may be necessary to detect the virus. The test was validated for u se with upper respiratory specimens obtained via nasopharyngeal or oropharyngeal swabs in VTM, UTM, M4, M5, M6, saline, and MTM media. The performance of this test has not be en established for other spe cimens. Specimens collected using other FDA recommended Specimen Collection Materials listed in the FDA COVID-19 [employer] communication (November 20, 2019) are pr ocessed with the caveat that they were not all validated for use with this test and the result must be interpreted in this context. Furthermore, a false negative results may occur if a specimen is improperly collected, transported or handled. If the virus mutates in the RT-PCR target region, SARS-CoV-2 may not be detected or may be detected less predictably. Inhibitors or other types of interference may produce a false negative result. An interference study evaluating the effect of common cold medications was not performed. This test is not FDA-cleared but its performance characteristics were established by our CLIA-certified, CAP-accredited, high complexity laboratory in accordance with CLIA regulations, [employer] ([employer]) guidel farhan (Nov 13, 2019), and FDA guidance (Oct 25, 2019). This test is only for use un gayle the Food and Drug Administration's Emergency Use Authorization. Specimen Swab - Entire nasopharynx (body structur e) Performing Organization Address City/State/ZIP Code Phon e Number [facility] [place] [place] COVID-19 TESTING (09/14/2020 14:30 EST) Pathologist [facility] COVID-19 rt-PCR NEGATIVE Negative [facility] Result Comment: LABORATORY 2019-novel Coronavirus (2019 -nCoV) not detected by the qRT-PCR assay. Consider testing for other respiratory viruses or re-collecting for 2019-nCoV testing. Note: Optimum timing for peak viral levels du ring infections caused by 20 -nCoV have not been determined. Collection of multiple specimens from the same patient may be necessary to detect the virus. Limitations Positive results are indicat julio of active infection with SARS-CoV-2 but do not rule out bacterial infection or co-infection with other viruses. The agent detected may not be the definite cause of diseas e. In addition, detection of viral RNA may not indicate the presence of infectious virus or that SARS-CoV-2 is the causative agent for clinical symptoms. Negative results do not prec lude SARS-CoV-2 infection and should not be used as the sole basis for patient management decisions. Negative results must be combined with clinical observations, patient his tory, and epidemiological in formation. False negative results may also occur if amplification inhibitors are present in the specimen or if inadequate numbers of organisms are present in the specimen. Op timum specimen types and nori ing for peak viral levels during infections caused by SARS-CoV-2 have not been fully determined. Collection of multiple specimens (types and time points) from the same patient may be necessary to detect the virus. The test was validated for u with upper respiratory specimens obtained via nasopharyngeal or oropharyngeal swabs in VTM, UTM, M4, M5, M6, saline, and MTM media. The performance of this test has not be en established for other spe cimens. Specimens collected using other FDA recommended Specimen Collection Materials listed in the FDA COVID-19 [employer] communication (November 20, 2019) are pr ocessed with the caveat that they were not all validated for use with this test and the result must be interpreted in this context. Furthermore, a false negative results may occur if a specimen is improperly collected, transported or handled. If the virus mutates in the RT-PCR target region, SARS-CoV-2 may not be detected or may be detected less predictably. Inhibitors or other types of interference may produce a false negative result. An interference study evaluating the effect of common cold medications was not performed. This test is not FDA-cleared but its performance characteristics were established by our CLIA-certified, CAP-accredited, high complexity laboratory in accordance with CLIA regulations, [employer] ([employer]) guidel farhan (Nov 13, 2019), and FDA guidance (Oct 25, 2019). This test is only for use un gayle the Food and Drug Administration's Emergency Use Authorization. Performing Lab [facility] LABORATORY SERVICES Specimen Swab Performing Organization Address City/State/[facility] Code Phon e Number [facility] [address] [place] [address] [facility] [place], [place] documented in this encounter Visit Diagnoses Not on filedocumented in this encounter Care Teams Gasket Maker Relationship Specialty Start Date End Date Sin Leavitt MD PCP - General 09/13/16 documented as of this encounter
--- OUTSIDE RECORDS SUMMARY | 2022-03-13 01:30 | XMS_ITS | Encounter Summary ---
:1985 Author [place] [address] Care Team Providers Name Role Phone Sin Leavitt MD Primary Care Provider Reason for Visit Reason Comments Abdominal Pain Encounter Details Date Type Department Care Team Description 03/23/2019 Emergency Emergency Department Ludivina Alvarado L ower abdominal pain [facility] [place] [address] [place] [address] [phone] Social History Tobacco Use Types Packs/Day Years [...] - - Body Mass Index - - documented in this encounter Discharge Instructions Discharge Leda Landeros - 03/23/2019 11:28 PM EDT You were seen tonight for left lower abdominal pain. While we do not have a clear cause of your pain, we have ruled out diverticulitis and other emergent causes with lab work and a CT scan of your abdomen and pelvis. Since Toradol (ketorolac) worked well for your pain here, try ibuprofen for pain. Please return if you have fevers, worsening pain, blood in your stool or vomiting. Please return if you have any other concerning symptoms. I wish you well. AttachmentsThe following attachments cannot be sent through Care Everywhere. Abdominal Pain (Albanian)documented in this encounter ED Notes Ludivina Alvarado MD - 03/23/2019 11:37 PM EDT This visit was performed jointly with student Zach. The patient???s history was validated in the patient???s presence and is notable for LLB abdominal pain with a single episode of loose stool. Sharp, 8/, feels like a prior episode of diverticulitis. No aggravating or alleviating factors. Normal PO intake. Stable over several hours. I performed the full exam as documented by the student. I personally reviewed all applicable documented studies and diagnostic images. My own personal interpretation shows no evidence of acute abdominal process on imaging or suggested by labs. The assessment and plan was formulated at my direction, in summary no acute process identified, patient stable for discharge. MD Christiano Araujo Sarah M, MD 03/30/19 1330 Marbella Iglesias RN - 03/23/2019 10:05 PM EDT Patient reports improvement of abdominal pain with toradol. Requesting nicotine patch, Dr. Alvarado notified. Awaiting CT scan. documented in this encounter Miscellaneous Notes Med Student Progress Note - Leda Serrano - 03/23/2019 7:51 PM EDT ED Resident Note Ha Alcazar is an 33 y.o. male who presents to the ED with: Chief Complaint Patient presents with ??? Abdominal Pain I saw this patient on 03/23/2019. History is from the patient. [facility] HPI Ha Alcazar is a 33 y.o. male with a past medical history significant for diverticulitis and opioid use disorder who presents to the Emergency Department from [facility] where he is undergoing detox withacute onset LLQ abdominal pain with associated yellow diarrhea x1 onset 5 hours ago. Pain is sharp, s evere, rated 8-10/10, non-radiating, worse with palpation and movement, and improved with lying on his left side. Patient states that this episode of pain feels exactly like his previous episode of diverticulitis. Endorses some headache and chills over the past 4 days since stopping Suboxone taper, but associatesthis with his opioid detox. Denies nausea, vomiting, dysuria, hematuria, chest pain, palpitations. PMH: Diverticulitis Opioid Use Disorder (currently in detox at [facility]) Meds: None Surgical History: Lumbar Back Surgery 2016 Allergies: NKDA Review of Systems: Review of Systems A 10-point ROS was reviewed and negative unless otherwise noted in the HPI. Physical Exam: Patient Vitals for the past 24 hrs: BP Temp Pulse Resp SpO2 Weight 03/23/19 2300 115/62 -- 73 13 98 % -- 03/23/19 2200 127/66 -- 72 13 98 % -- 03/23/19 2100 100/49 -- 69 12 97 % -- 03/23/19 2000 111/65 -- 78 20 -- -- 03/23/19 1852 120/70 37.1 ??C (98.7 ??F) 91 19 98 % 90.7 kg (200 lb) GEN: Alert and conversant, no acute distress, but appears to be in mild discomfort lying on the gurney, seemingly trying not to move. HEENT: Normocephalic, atraumatic. PERRLA, EOMI. Oropharynx clear, pink, and moist, without discharge. Septum midline. PULM: Clear to auscultation bilaterally, no wheezes, rales, or rhonchi. CV: Regular rate and rhythm, no murmurs, rubs, or gallups. ABD: Soft, non-distended, moderate tenderness of the LLQ abdomen with guarding. No rigidity or rebound. Pain reproduced with tapping the heel of the left foot. MSK: All four extremities without obvious deformity or significant weakness. NEURO: AAOx3. No gross CN deficits. Moves extremities equally. PSYCH: Appropriate behavior, affect, and thought pattern. SKIN: No visible rashes or wounds. IMAGING: CT Abdomen and Pelvis with Contrast IMPRESSION No acute intra-abdominal or pelvic process. Specifically, no diverticulitis. ED Course: - Patient seen and discussed with the attending physician. Additional labs and imaging ordered. - I reviewed the patient's medications, allergies, and past medical history. 21:02 - Ordered toradol for pain and IV fluids 22:25 - Patient re-evaluated. Pain has improved after Toradol. 23:03 - Patient re-evaluated. Pain is now rated at 6/10 down from 8/10. Recent Results (from the past 24 hour(s)) Basic Metabolic Panel (non-fasting) Result Value Ref Range Glucose Lvl 128 65 - 199 mg/dL BUN 20 10 - 20 mg/dL Creatinine 1.08 0.80 - 1.50 mg/dL Sodium 140 135 - 145 mmol/L Potassium 4.2 3.5 - 5.0 mmol/L Chloride 103 98 - 107 mmol/L CO2 28 22 - 31 mmol/L Anion Gap 9 5 - 15 mmol/L Calcium 9.6 8.5 - 10.5 mg/dL eGFR 88 >=60 mL/min/1.73 m?? eGFR 103 >=60 mL/min/1.73 m?? Hemogram Result Value Ref Range WBC 8.7 4.0 - 9.5 x10(3)/mcL RBC 4.81 4.58 - 5.54 x10(6)/mcL Hemoglobin 14.1 13.7 - 16.5 gm/dL Hematocrit 42.4 40.5 - 48.5 % MCV 88.1 82.9 - 93.1 fL MCH 29.3 27.5 - 32.1 pg MCHC 33.3 32.0 - 35.7 gm/dL Platelets 260 145 - 357 x10(3)/mcL RDWSD 42.5 36.0 - 45.0 fL RDWCV 13.1 11.4 - 13.8 % MPV 10.6 7.6 - 12.9 fL nRBC % Auto 0.0 % nRBC Abs Auto 0.000 0.000 - 0.000 x10(3)/mcL Differential, Automated Result Value Ref Range Neutrophils % 64.3 % Neutr Abs (ANC) 5.62 1.70 - 6.10 x10(3)/mcL Lymphocytes % 25.1 % Lymphocytes Abs 2.2 0.9 - 3.2 x10(3)/mcL Monocytes % 7.7 % Monocyte Abs 0.7 0.3 - 0.9 x10(3)/mcL Eosinophils % 2.4 % Eosinophils Abs 0.2 0.0 - 0.4 x10(3)/mcL Basophils % 0.3 % Basophils Abs 0.0 0.0 - 0.1 x10(3)/mcL Immature Gran % 0.20 % Olena Gran Abs 0.02 0.00 - 0.04 x10(3)/mcL Blue Tube HOLD Result Value Ref Range Blue Hold Sample in lab. Hepatic Function Panel Result Value Ref Range Total Protein 7.2 6.1 - 8.0 gm/dL Albumin 4.2 3.2 - 5.2 gm/dL AST 19 0 - 39 unit/L ALT 23 0 - 55 unit/L Alk Phos 68 40 - 130 unit/L Total Bilirubin <0.2 (L) 0.2 - 1.3 mg/dL Bili, Direct <0.1 0.0 - 0.3 mg/dL Lipase Result Value Ref Range Lipase 30 0 - 60 unit/L Urinalysis with reflex Culture Result Value Ref Range Glucose UA Negative Negative mg/dL Protein UA Negative Negative mg/dL Bilirubin UA Negative Negative mg/dL Urobilinogen UA Normal Normal mg/dL pH UA 6.0 5.0 - 8.0 Blood UA Negative Negative mg/dL Ketones UA Negative Negative mg/dL Nitrite UA Negative Negative Leukocytes UA Negative Negative mcL Appearance UA Clear Clear Spec [place] UA 1.013 1.002 - 1.030 Color UA Straw Yellow Culture Reflexed No Assessment and Plan: 33 y.o. male with history of diverticulitis and opioid use disorder who presents with acute onset LLQ abdominal pain. Differential diagnosis includes adverse opioid withdrawal reaction, diverticulitis and less likely to be endocarditis with enteric emboli given substance use history. Also considered pancreatitis, hepatitis, intra-abdominal abscess, small bowel obstruction, and testiculur torsion. Thepatient denies any testicular involvement and physical exam shows only focal LLQ abdominal tenderness, making testicular torsion less likely. Labs including CBC, CMP, lipase, and urinalysis were unremarkable. A CT of the abdomen and pelvis was negative. While there is no clear cause for the patient's symptoms, emergent causes of abdominal pain have been ruled out with normal labs and imaging. Return precautions, including fever, worsening pain, vomiting, and blood in the stool, were verballydiscussed and written in discharge instructions. He was advised to try ibuprofen at [facility] given good response with Toradol here in the ED. The patient expressed understanding that they could come back to the ED at any time and agreed to the follow-up plan. documented in this encounter Plan of Treatment Not on filedocumented as of this encounter Procedures Procedure Name Priority Date/Time Associated Comments Diagnosis CT ABDOMEN AND STAT 03/23/2019 10:27 PM Result s for this PELVIS W CONTRAST EDT procedure are in the results section. URINALYSIS WITH STAT 03/23/2019 7:05 PM Result s for this REFLEX CULTURE EDT procedure are in the results section. HEMOGRAM STAT 03/23/2019 7:00 PM Results f or this EDT procedure are i n the results section. DIFFERENTIAL, STAT 03/23/2019 7:00 PM Results for this AUTOMATED EDT procedure are i n the results section. BLUE TUBE HOLD STAT 03/23/2019 7:00 PM Results for this EDT procedure are i n the results section. CBC (WITH DIFF) STAT 03/23/2019 7:00 PM EDT LIPASE STAT 03/23/2019 7:00 PM Results f or this EDT procedure are i n the results section. HEPATIC FUNCTION STAT 03/23/2019 7:00 PM Resul ts for this PANEL EDT procedure are i n the results section. BASIC METABOLIC STAT 03/23/2019 7:00 PM Result s for this PANEL (NON-FASTING) EDT procedur e are in the results section. documented in this encounter Results CT Abdomen & Pelvis w Contrast (03/23/2019 10:27 PM EDT) Anatomical Region Laterality Modality Abdomen, Pelvis Computed Tomography Specimen (Source) Anatomical Location Collection Method / Collectio n Time Received Time / Laterality Volume Impressions 03/24/2019 12:00 AM EDT Scattered colonic diverticula without diverticulitis. I have personally reviewed the image(s) and the residents interpretation and agree with the findings, Dot Cheek at 03/24/2019 12:00 AM Thank you for letting us participate in the care of this patient. For questions regarding this report, please contact e number below. ? Narrative 03/24/2019 12:00 AM EDT EXAMINATION: ??CT ABDOMEN AND PELVIS W CONTRAST CLINICAL HISTORY: ??LLQ pain, hx of dive rticulitis TECHNIQUE: Helical CT of the abdomen and pelvis was performed following the intravenous administration of contrast. Administered 102.0 ml of OMNIPAQUE 350.00 mg/ml. COMPARISON: None FINDINGS: Lower chest: Normal. Liver: Normal attenuation. Focal right h epatic lobe fatty infiltration adjacent to the falciform ligament. Bile ducts: Non-dilated. Gallbladder: Decompressed. No calcified gallstones. Pancreas: Normal attenuation.. No duct d ilation. Spleen: Normal. ?? Adrenals: Normal. Kidneys: Normal symmetric enhancement. N o hydronephrosis. Vasculature: No aneurysm. Lymph Nodes: No enlarged lymph nodes. Bowel: Stomach and small bowel are decom pressed. Normal appendix. There are a few scattered predominantly descending a nd sigmoid colon diverticula without diverticulitis. Peritoneum: No free air. No free or foca l fluid collection. Abdominal wall: Normal. Urinary Bladder: Moderately distended. N ormal. Reproductive organs: Normal. Osseous structures: Mild degenerative di sc changes at L5-S1. Procedure Note Dot Cheek MD - 03/24/2019 EXAMINATION: CT ABDOMEN AND PELVIS W CON TRAST CLINICAL HISTORY: LLQ pain, hx of divert iculitis TECHNIQUE: Helical CT of the abdomen and pelvis was performed following the intravenous administration of contrast. Administered 102.0 ml of OMNIPAQUE 350.00 mg/ml. COMPARISON: None FINDINGS: Lower chest: Normal. Liver: Normal attenuation. Focal right h epatic lobe fatty infiltration adjacent to the falciform ligament. Bile ducts: Non-dilated. Gallbladder: Decompressed. No calcified gallstones. Pancreas: Normal attenuation.. No duct d ilation. Spleen: Normal. Adrenals: Normal. Kidneys: Normal symmetric enhancement. N o hydronephrosis. Vasculature: No aneurysm. Lymph Nodes: No enlarged lymph nodes. Bowel: Stomach and small bowel are decom pressed. Normal appendix. There are a few scattered predominantly descending a nd sigmoid colon diverticula without diverticulitis. Peritoneum: No free air. No free or foca l fluid collection. Abdominal wall: Normal. Urinary Bladder: Moderately distended. N ormal. Reproductive organs: Normal. Osseous structures: Mild degenerative di sc changes at L5-S1. IMPRESSION Scattered colonic diverticula without di verticulitis. I have personally reviewed the image(s) and the residents interpretation and agree with the findings, Dot Cheek at 03/24/2019 12:00 AM Thank you for letting us participate in the care of this patient. For questions regarding this report, please contact e number below. Ludivina Alvarado MD IMG CT ORDERABLES Urinalysis with reflex Culture (03/23/2019 7:05 PM EDT) [facility] Method Time Signature Glucose UA Negative Negative [facility] mg/dL [facility] Protein UA Negative Negative [facility] mg/dL [facility] Bilirubin UA Negative Negative [facility] mg/dL [facility] Comment: Clinical correlation required for positi ve Urine Bilirubin results as false positive may occur with some drugs and d rug related products. If a false positive is suspected a serum total bili armas should be considered if clinically indicated. Urobilinogen UA Normal Normal mg/dL [facility] pH UA 6.0 5.0 - 8.0 [facility] Blood UA Negative Negative mg/dL [facility] Ketones UA Negative Negative mg/dL [facility] Nitrite UA Negative Negative [facility] Leukocytes UA Negative Negative [facility] Appearance UA Clear Clear [facility] Spec [place] UA 1.013 1.002 - 1.030 [facility] Color UA Straw Yellow [facility] Culture Reflexed No [facility] Specimen Anatomical Collection Method Collection Time Receive d Time (Source) Location / / Volume Laterality Urine specimen 03/23/2019 7:05 PM 019 7:21 (specimen) EDT PM EDT Resulting Agency Comment Spec In Lab Ludivina Alvarado MD URINE ORDERABLES Performing Organization Address City/[facility]/ZIP Code Phon e Number [address] Lipase (03/23/2019 7:00 PM EDT) P athologist Signature Lipase 30 0 - 60 [facility] unit/L [facility] Specimen Anatomical Collection Method Collection Time Receive d Time (Source) Location / / Volume Laterality Blood specimen Venous Draw / 03/23/2019 7:00 PM 2018 8:18 (specimen) Unknown EDT PM EDT Resulting Agency Comment Spec In Lab Ludivina Alvarado MD CHEMISTRY ORDERABLES Performing Organization Address City/[facility]/ZIP Code Phon e Number [address] (ABNORMAL) Hepatic Function Panel (03/23/2019 7:00 PM EDT) Analysis Performed At Patho logist Time Signature Total Protein 7.2 6.1 - 8.0 [facility] [place] gm/dL [facility] Albumin 4.2 3.2 - 5.2 [facility] [place] gm/dL [facility] AST 19 0 - 39 [facility] [place] unit/L [facility] ALT 23 0 - 55 [facility] [place] unit/L [facility] Alk Phos 68 40 - 130 [facility] Total <0.2 (L) 0.2 - 1.3 [facility] Bilirubin mg/dL [facility] Bili, Direct <0.1 0.0 - 0.3 [facility] mg/dL [facility] Specimen Anatomical Collection Method Collection Time Receive d Time (Source) Location / / Volume Laterality Blood specimen Venous Draw / 03/23/2019 7:00 PM 2018 8:18 (specimen) Unknown EDT PM EDT Resulting Agency Comment Spec In Lab Ludivina Alvarado MD CHEMISTRY ORDERABLES Performing Organization Address City/[facility]/ZIP Code Phon e Number [address] Blue Tube HOLD (03/23/2019 7:00 PM EDT) P athologist Signature Blue Hold Sample in [facility]. [facility] Specimen Anatomical Collection Method Collection Time Receive d Time (Source) Location / / Volume Laterality Blood specimen Venous Draw / 03/23/2019 7:00 PM 2018 7:11 (specimen) Unknown EDT PM EDT Ludivina Alvarado MD HEMATOLOGY ORDERABLES Performing Organization Address City/[facility]/ZIP Code Phon e Number [address] Differential, Automated (03/23/2019 7:00 PM EDT) P athologist Signature Neutrophils % 64.3 % [facility] Neutr Abs (ANC) 5.62 1.70 - [facility] 6.10 [facility] x10(3)/[facility] LABORATORY Lymphocytes % 25.1 % [facility] Lymphocytes Abs 2.2 0.9 - 3.2 [facility] x10(3)/[facility] LABORATORY Monocytes % 7.7 % [facility] Monocyte Abs 0.7 0.3 - 0.9 [facility] x10(3)/[facility] LABORATORY Eosinophils % 2.4 % [facility] Eosinophils Abs 0.2 0.0 - 0.4 [facility] x10(3)/[facility] LABORATORY Basophils % 0.3 % [facility] Basophils Abs 0.0 0.0 - 0.1 [facility] x10(3)/[facility] LABORATORY Immature Gran % 0.20 % [facility] Comment: Immature granulocytes(IG's)percentage an d absolute count will include metamyelocytes, myelocytes, and promyelo cytes. Blood smears from CBCs yielding IG's will be scanned manually for concor dance. If this scan disagrees with the automated IG or if promyelocytes are not ed, a manual differential will be performed. Olena Gran Abs 0.02 0.00 - 0.04 x10(3)/[facility] MAR Y [facility] LABORATORY Specimen Anatomical Collection Method Collection Time Receive d Time (Source) Location / / Volume Laterality Blood specimen 03/23/2019 7:00 PM 019 7:09 (specimen) EDT PM EDT Resulting Agency Comment Spec In Lab Ludivina Alvarado MD HEMATOLOGY ORDERABLES Performing Organization Address City/State/ZIP Code [place] [address] Hemogram (03/23/2019 7:00 PM EDT) P athologist Signature WBC 8.7 4.0 - 9.5 [facility] x10(3)/[facility] LABORATORY RBC 4.81 4.58 - [facility] 5.54 [facility] x10(6)/[facility] LABORATORY Hemoglobin 14.1 13.7 - [facility] 16.5 gm/dL [facility] Hematocrit 42.4 40.5 - [facility] 48.5 % [facility] MCV 88.1 82.9 - [facility] 93.1 [facility] LABORATORY MCH 29.3 27.5 - [facility] [place] 32.1 pg [facility] MCHC 33.3 32.0 - [facility] 35.7 gm/dL [facility] Platelets 260 145 - 357 [facility] x10(3)/[facility] LABORATORY RDWSD 42.5 36.0 - [facility] [place] 45.0 [facility] RDWCV 13.1 11.4 - [facility] 13.8 % [facility] MPV 10.6 7.6 - 12.9 [facility] nRBC % Auto 0.0 % [facility] nRBC Abs Auto 0.000 0.000 - [facility] 0.000 [facility] x10(3)/[facility] LABORATORY Specimen Anatomical Collection Method Collection Time Receive d Time (Source) Location / / Volume Laterality Blood specimen 03/23/2019 7:00 PM 019 7:09 (specimen) EDT PM EDT Resulting Agency Comment Spec In Lab Ludivina Alvarado MD HEMATOLOGY ORDERABLES Performing Organization Address City/State/ZIP Code [place] [address] Basic Metabolic Panel (non-fasting) (03/23/2019 7:00 PM EDT) P athologist Signature Glucose Lvl 128 65 - 199 [facility] mg/dL [facility] Comment: Diabetes: >=200 mg/dL plus symp toms BUN 20 10 - 20 mg/dL [facility] Creatinine 1.08 0.80 - 1.50 mg/dL [facility] Sodium 140 135 - 145 mmol/L [facility] Potassium 4.2 3.5 - 5.0 mmol/L [facility] Comment: Please note: ??Patients with WBC >100,00 0 may have falsely elevated Potassium levels. ??For accurate Potassium quantif ication in these patients send serum separator tube (gold top) for subsequent determinations. ??Contact the Clinical Chemistry Laboratory if there are any qu estions. Chloride 103 98 - 107 mmol/L [facility] CO2 28 22 - 31 mmol/L [facility] Anion Gap 9 5 - 15 mmol/L [facility] Calcium 9.6 8.5 - 10.5 mg/dL [facility] Estimated GFR 88 >=60 mL/min/1.73 m?? [facility] Comment: The eGFR was calculated using the CKD-EP I equation. As with all creatinine based estimates of kidney function, eGFR values calculated with the CKD-EPI equation are not accurate in patients wi th acute kidney failure, extremes of body mass or the acutely ill. [email or web address] eGFR 103 >=60 mL/min/1.73 m?? [facility] Comment: The eGFR was calculated using the CKD-EP I equation. As with all creatinine based estimates of kidney function, eGFR values calculated with the CKD-EPI equation are not accurate in patients wi th acute kidney failure, extremes of body mass or the acutely ill. [email or web address] Specimen Anatomical Collection Method Collection Time Receive d Time (Source) Location / / Volume Laterality Blood specimen 03/23/2019 7:00 PM 019 7:09 (specimen) EDT PM EDT Resulting Agency Comment Spec In Lab Ludivina Alvarado MD CHEMISTRY ORDERABLES Performing Organization Address City/State/ZIP Code [place] [address] documented in this encounter Visit Diagnoses Diagnosis Lower abdominal pain Abdominal pain, other specified site documented in this encounter Administered Medications Inactive Administered Medications - up to 3 most recent administrations Medication Order MAR Action Action Date Dose Rate Site iohexol (OMNIPAQUE) 350 mg/mL Given 03/23/2019 10:27 PM EDT 102 mLs solution 0-200 mL 0-200 mL, Intravenous, ONCE PRN, 1 dose, Starting on 03/23/19 at 2227, Until 03/23/19 at 2227, Per Protocol, Warning Vesicant/Irritant Medication , Radiology Contrast, Routine ketorolac (TORADOL) injection 15 mg Given 03/23/2019 9:04 PM EDT 15 mg 15 mg, Intravenous, ONCE, 1 dose, On 03/23/19 at 2103, Routine nicotine (NICODERM CQ) 14 Given 03/23/2019 10:09 PM EDT 14 mg 03- Shoulder (Left) mg/24 hr patch 14 mg 14 mg (1 patch), Transdermal, ONCE, 1 dose, On 03/23/19 at 2207, STAT sodium chloride 0.9% 1,000 mL IV bolus New Bag 03/23/2019 9:05 PM EDT 2000 mL/hr at 2,000 mL/hr, Intravenous, ONCE, 1 dose, On 03/23/19 at 2104 documented in this encounter Active and Recently Administered Medications Times are shown in EDT. Scheduled Medication Order 03/21/2019 03/22/2019 03/23/2019 ketorolac (TORADOL) injection 15 mg (COMPLETED) 2103 (Given - Provider: Marbella Iglesias, ИВАН) 15 mg, Intravenous, ONCE, 1 dose, 03/23/19 at 210, Routine nicotine (NICODERM CQ) 14 mg/24 hr patch 14 mg 2208 (Given - Provider: Marbella Iglesias, ИВАН) 14 mg (1 patch), Transdermal, ONCE, 1 dose, 03/23/19 at 2206, STAT sodium chloride 0.9% 1,000 mL IV bolus (COMPLETED) 2104 (New Bag - Provider: Marbella Iglesias, ИВАН)2204 (Stopped - Provider: Marbella Iglesias, ИВАН) at 2,000 mL/hr, Intravenous, ONCE, 1 dose, 03/23/19 at 2103 PRN Medication Order 03/21/2019 03/22/2019 03/23/2019 iohexol (OMNIPAQUE) 350 mg/mL solution 0-200 mL (COMPLETED) 2226 (Given - Provider: Wenceslao Nunes) 0-200 mL, Intravenous, ONCE PRN, 1 dose, Starting on 03/23/19 at 2227, Until 03/23/19 at 2227, Per Protocol, Warning Vesicant/Irritant Medication , Radiology Contrast, Routine documented in this encounter Care Teams Sensor Specialist Relationship Specialty Start Date End Date Sin Leavitt MD PCP - General Family Medicine 03/23/[address] [place] [address] documented as of this encounter
--- OUTSIDE RECORDS SUMMARY | 2022-03-13 01:30 | XMS_ITS | Encounter Summary ---
:1985 Author Organization [facility] Address [address] [place] [address] Care Team Providers Name Role Phone Unknown, Provider Primary Care Provider Encounter Details Date Type Department Care Team Description 02/08/2011 Results Only [facility]- Amy Neri, DO [phone] [facility] [place], [place] [address] (Wo rk) Social History Tobacco Use Types Packs/Day Years Used Date Never Assessed Sex Assigned at Date Recorded Not on file documented as of this encounter Plan of Treatment Not on filedocumented as of this encounter Procedures Procedure Name Priority Date/Time Associated Diagnosis Comme [facility] SURGICAL PATHOLOGY Routine 02/08/2011 0:00 EDT Re sults for this procedure are i n the results section. documented in this encounter Results SURGICAL PATHOLOGY (02/08/2011 0:00 EDT) Pathology Report: SURGICAL PATHOLOGY REPORT ? HENRRY MARMOLEJO Reports generated via electr Avista interface contain original data; ? LAB however they are lacking the format of the original report. ? Caution should be taken when reading/interpreting unformatted reports. ? Name: ? CABRERA, RADHA ? Accession #: ? [id number] ? : ? 1985 (Age: 25) ??M ? Collec t Date: ? 02/08/2011 ? Location: ? [facility] ? R eceive Date: ? 02/08/2011 ? Provider: AMY MADDOX DO ? Copy to: DOMINGO MISHRA MD ? Final Pathologic Diagnosis: ? Pilonidal cyst trac t, excision: ? 1. ??Pilonidal cyst. ? Document reviewed and electr onically signed by: ? DONNA S SURESH MD ? Report ??Date: 02/10/2011 13 :50 ? By the signature above, the attending physician certifies that he/she has ? personally conducted a gross and/or microscopic examination of the described ? specimens and rendered or co nfirmed the above diagnosis. ? Specimen(s) Received: ? Pilonidal cyst tract ? Clinical History: ? Pilonidal cyst ? Gross Description: ? Received in formalin labelled Cabrera, Radha and pilonidal cyst tract is a ?? 7.0 cm in length ellipse of skin which ranges in width from 1.2 cm laterally to 0.3 cm centrally and is exci sed to a greatest depth of 2.0 cm. ??The deep margin is received partially incise d and is black inked. ??The cutaneous surface is ? furrowed towards one end ove r a length of 2.3 cm. ??The opposite end of the ? cutaneous surface is slightl y raised and centrally slightly umbilicated over an area measuring 0.7 cm in fei meter. ??The cutaneous surface, otherwise, is ? white-light krause and generall y smooth. ??Sections reveal an elongated sinus tract coursing beneath the dermis of the specimen, which has a krause-yellow, slightly ?? soft cut surface and measure s up to 0.7 cm in diameter. ??This tract does not ? appear to extend to any of t he resection margins. ??The remaining subcutaneous ?? tissue is composed of dense white fibrous tissue. ??Quality Assurance Monitor Body sections of ?? the specimen are submitted a s follows: ? BLOCK FLOWERS ? A1-A3 ?Transver se sections, including skin and sinus tract ? A4 ?One perpend icular section from both ends of skin and underlying ? fibrous tissue ? (J. Tessitore)/ljn ? End of Report ? 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
[2022-03-13 12:44] LABS: HCT 46.1 % (40.0-50.0); HGB 15.1 g/dL (13.5-17.5); MCHC 32.8 % (32.0-36.0); MCV 89 fL (80-95); MPV 11.2 fL (8.0-11.0); Platelet Count 249 10^3/uL (130-400); RDW 13.4 % (11.8-14.1); RDW-SD 43.5 fL; WBC 6.88 10^3/uL (4.4-10.8)
[2022-03-13 13:15] LABS: ALT 49 U/L (16-63); AST 27 U/L (15-37); Albumin 4.2 g/dL (3.4-5.0); Alkaline Phosphatase 65 U/L (46-116); Anion Gap 6.7 mmol/L (3-11); BUN 21 mg/dL (7-18); Bilirubin, Total 0.5 mg/dL (0.2-1.0); CO2 30.3 mmol/L (21.0-32.0); CREATININE 1.3 mg/dL (0.70-1.30); Chloride 101 mmol/L (98-107); Glucose 123 mg/dL (74-106); Potassium 4.1 mmol/L (3.5-5.1); Sodium 138 mmol/L (136-145); TSH (W/Ref FT4) 1.92 uIU/mL (0.36-3.74); Total Protein 8.1 g/dL (6.4-8.2)
[2022-03-13 14:56] LABS: Calculated LDL 118 mg/dL (<100); Cholesterol 195 mg/dL (<200); HDL Cholesterol 35 mg/dL (40-60); Triglyceride 214 mg/dL (<150)
[2022-03-14 09:57] LABS: Hepatitis C Ab w Rflx HCV PCR Negative (Negative)
[2022-03-14 10:14] LABS: HIV-1/2 Ag & Ab Screen Negative (Negative)
== END 2022-03-13 01:29 | disposition home or self-care (01) ==
LOC: LOS 01:28
PROVIDERS: PCP Nurse Practitioner Family; Visit Provider Family Medicine
DX: I10 Essential (primary) hypertension (principal); R53.83 Other fatigue; Z13.6 Encounter for screening for cardiovascular disorders; Z11.4 Encounter for screening for human immunodeficiency virus [HIV]; Z11.59 Encounter for screening for other viral diseases
CPT/HCPCS: 36415; 80053; 80061; 85027; 86803; 87389; 84443

== ENCOUNTER 2022-03-13 08:48 | Outpatient (CLI) | payer MEDICAID, SELFPAY ==
--- NOTE | 2022-03-13 08:45 | RT.EKG_ITS ---
APPROVED REPORT Exam: Resting ECG Reason for Exam: Irregular pulse Patient Location: O HR:76 bpm ECG Measurements Heart Rate 76 AXIS ND 138 P -1 QRSd 95 QRS 66 QT 385 T 34 QTc 433 Conclusion Sinus rhythm...normal P axis, V-rate 60- 99 Normal Electrocardiogram
== END 2022-03-13 08:49 | disposition home or self-care (01) ==
LOC: DI.CM 08:48
PROVIDERS: PCP Nurse Practitioner Family; Visit Provider Emergency Medicine
DX: R55 Syncope and collapse (principal)
CPT/HCPCS: 93010

== ENCOUNTER 2023-10-15 16:58 | Emergency (ER) | payer MEDICAID, SELFPAY ==
[2023-10-15 17:09] VITALS: BP 176/105; PULSE 76; RESP 16; TEMP 37.1; O2SAT 98
--- NOTE | 2023-10-15 17:26 | DI.RAD_ITS ---
Exam(s) XR CHEST 2V PA LATERAL EXAM: XR CHEST 2V PA LATERAL CLINICAL HISTORY: SOB. TECHNIQUE: 2D digital imaging was performed. COMPARISON: CR XR CHEST 2V PA LATERAL from 08/05/2018 FINDINGS: 2 views: Heart size is normal. The mediastinum is not widened. Lungs are clear. No infiltrates nor pleural effusions. IMPRESSION: No acute pulmonary findings. DATA REPOSITORY: RADIATION DOSE DELIVERED:
[2023-10-15 18:20] VITALS: BP 146/102; PULSE 79; RESP 18; TEMP 37.1; O2SAT 95
--- NOTE | 2023-10-15 18:28 | ED.GENADUL_ITS ---
HPI General Date/Time Provider Initiated Documentation: 10/15/23 17:16 . HPI Narrative: 37 year-old male presents to ED today by POV/ambulating with a chief complaint of shortness of breath at work today, second time this month, with onset after cold snap in the weather. Quality described as subacute cough for a few weeks, no radiation to fever, chest pain, nausea, vomiting, body aches, runny nose, endorses some mild dizziness, denies palpitations/diaphoresis at onset. Severity is described as 6-7/10. Palliating factors include nothing specific attempted. Provoking factors include nothing specific. Events leading up to the incident/Associated Symptoms: Patient denies asthma history. Patient not anticoagulated. Related Data Home Medications Medication Instructions Recorded Confirmed buprenorphine 8 mg-naloxone 2 mg 1 film sublingual DAILY #1 ea 03/07/22 10/15/23 sublingual film (Suboxone) azithromycin 250 mg tablet 250 mg PO DAILY walking pneumonia 10/15/23 4 days #4 tabs prednisone 20 mg tablet 40 mg (2 x 20 mg) PO DAILY 10/15/23 reactive airway 4 days #8 tabs Previous Rx's Medication Instructions Recorded buprenorphine 8 mg-naloxone 2 mg 1 film sublingual DAILY #1 ea 03/07/22 sublingual film (Suboxone) azithromycin 250 mg tablet 250 mg PO DAILY walking pneumonia 10/15/23 4 days #4 tabs prednisone 20 mg tablet 40 mg (2 x 20 mg) PO DAILY 10/15/23 reactive airway 4 days #8 tabs Allergies Allergy/AdvReac Type Severity Reaction Status Date / Time Penicillins Allergy Intermediate Skin Rash Verified 10/15/23 17:07 Nuts AdvReac Intermediate scratchy Uncoded 10/15/23 17:07 throat, per pt General Stated Complaint: RespSymp STEFAN: 3 Review of Systems All systems reviewed & are unremarkable except as noted in HPI and below Exam Narrative Exam Narrative: GENERAL APPEARANCE: Well-nourished, non-toxic, awake and alert, atraumatic, no acute distress. SKIN: Warm, pink, dry, intact, without rashes/lesions/ulcerations. HEAD: Normocephalic, atraumatic, normal hair distribution for gender/age. EYES: Pupils PERRLA, EOMs intact without nystagmus, normal conjunctiva, no exudates on lids/lashes. ENT: Nares patent, no circumoral cyanosis, no facial swelling NECK: Supple, trachea midline, painless cervical ROM. LUNGS/CHEST: Lungs - diffuse inspiratory/expiratory wheezing bilaterally, non-labored respirations, normal A/P diameter, symmetrical expansion, no chest wall deformity HEART (CV/PV): Regular rate and rhythm without murmur, no peripheral edema, no JVD. ABDOMEN: Soft, non-distended, no guarding, no tenderness. MSK: Normal ROM, no swelling/deformity to bilateral UEs or LEs, moving all extremities without weakness, no cyanosis, spine midline without tenderness, normal curvature. NEURO: Mental Status AAOx4 - alert to person, place, time, events No facial droop, no forehead involvement. Motor: No focal weakness - strength 5/5 in bilateral UEs and LEs, proximal and distal, symmetric. Sensory: sensation intact to light touch globally. Gait normal: patient ambulated without ataxia into ED room. PSYCH: euthymic, cooperative, pleasant, appropriate speech Course Vital Signs Vital signs: Vital Signs Temperature 37.1 C 10/15/23 17:09 Pulse 76 10/15/23 17:09 Respiratory Rate 16 10/15/23 17:09 Blood Pressure 176/105 H 10/15/23 17:09 Pulse Oximetry 98 10/15/23 17:09 Temperature 37.1 C 10/15/23 18:20 Temperature Source Temporal Artery Scan 10/15/23 17:09 Pulse 79 10/15/23 18:20 Respiratory Rate 18 10/15/23 18:20 Respiratory Effort Normal, Non-Labored 10/15/23 18:24 Respiratory Depth Normal 10/15/23 18:24 Blood Pressure 146/102 H 10/15/23 18:20 Blood Pressure Position Supine 10/15/23 18:20 Pulse Oximetry 95 10/15/23 18:20 Oxygen Delivery Method Room Air 10/15/23 18:20 Oxygen Flow Rate 0 10/15/23 17:09 Pain Level 0 10/15/23 18:20 Medical Decision Making This dictation utilizes [id number] dictation software and may contain unedited grammatical errors. 37 y/o M presents to ED today with a chief complaint of subacute cough for a couple weeks- two bouts of shortness of breath this month, denies chest pain/palpitations, denies fever/runny nose. Patient denies asthma history. Patients' medical history: History of tobacco use, states last smoked 4 years ago. 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 Pertinent exam findings / vital signs include diffuse inspiratory and expiratory wheezing without overt labored respirations, nontoxic vitals, cardiac exam, benign abdomen. Differential / pathologies of concern include pneumonia, viral syndrome, upper respiratory infection, undiagnosed asthma or other restrictive lung disease, COPD. Diagnostic studies of: -CBC, CRP, ESR, VBG, lactate, CMP, magnesium, COVID/flu/RSV PCR, chest x-ray. -CBC shows no leukocytosis -CRP ESR benign -Lactate within normal limits -Magnesium within normal limits -CMP benign -COVID flu RSV negative -Chest x-ray no acute pulmonary pathology -VBG elevated CO2 Interventions of: -Neb treatment, Azitho, Steroids. ED Course/Assessment/Plan: 37-year-old male with diffuse inspiratory and expiratory wheezing a subacute cough for weeks presents for shortness of breath today, has had a second bout of this this month, onset was during a really cold snap in the weather weeks ago, I question whether he has an upper respiratory infection that is not COVID flu or RSV but has no focal pneumonia on chest x-ray, his wheezing resolved with a breathing treatment and I am going to treat him for an atypical walking pneumo azar with azithromycin for 5 days as well as prednisone for reactive airway disease and provided an inhaler to go, I counseled him to follow-up with his primary care provider for pulmonary function tests for possible undiagnosed asthma versus COPD. Findings not consistent with hypoxic respiratory failure, septic illness. Disposition of Walking Pneumonia, Reactive Airway Disease. Patient verbalized understanding of the plan and return to ED criteria and engaged in shared decision making. Medical Records Medical records reviewed: Yes I reviewed the patient's medical records. Imaging Data Radiologic Study: Attestation: I personally reviewed and interpreted this imaging study as follows: Imaging: X-Ray Radiologist's impression: EXAM: XR CHEST 2V PA LATERAL CLINICAL HISTORY: SOB. TECHNIQUE: 2D digital imaging was performed. COMPARISON: CR XR CHEST 2V PA LATERAL from 08/05/2018 FINDINGS: 2 views: Heart size is normal. The mediastinum is not widened. Lungs are clear. No infiltrates nor pleural effusions. IMPRESSION: No acute pulmonary findings. Lab Data Lab results reviewed: Yes I reviewed the patient's lab results. Labs: Laboratory Tests Range/Units 10/15/23 10/15/23 18:58 19:04 WBC (4.4-10.8) 10^3/uL 8.17 RBC (4.36-5.78) 10^6/uL 5.19 Hgb (13.5-17.5) g/dL 15.3 Hct (40.0-50.0) % 45.2 MCV (80-95) fL 87 MCH (27.0-33.0) pg 29.5 MCHC (32.0-36.0) % 33.8 RDW (11.8-14.1) % 13.0 Plt Count (130-400) 10^3/uL 216 MPV (8.0-11.0) fL 10.3 Immature Gran % 0.1 Neutrophils % 54.2 Lymphocytes % 32.7 Monocytes % 6.6 Eosinophils % 5.9 Basophils % 0.5 Nucleated RBC % (0.0-0.3) % 0.0 Absolute Neutrophils (1.2-6.7) 10^3/uL 4.43 Absolute Lymphocytes (1.2-3.4) 10^3/uL 2.67 Absolute Monocytes (0.1-0.8) 10^3/uL 0.54 Absolute Eosinophils (0.0-0.7) 10^3/uL 0.48 Absolute Basophils (0.0-0.2) 10^3/uL 0.04 ESR (0-15) mm/hr 4 VBG pH (7.31-7.41) 7.37 VBG pCO2 (41-51) mmHg 55 H VBG pO2 mmHg 25 VBG HCO3 (23-28) mmol/L 32 H VBG Total CO2 (24-29) mmol/L 29 VBG O2 Saturation % 43 VBG Base Excess (-2-3) mmol/L 6 H VBG Lactate (0.6-1.4) mmol/L 0.7 Sodium (136-145) mmol/L 140 Potassium (3.5-5.1) mmol/L 4.0 Chloride (98-107) mmol/L 102 Carbon Dioxide (21.0-32.0) mmol/L 30.8 Anion Gap (3-11) mmol/L 7.2 BUN (7-18) mg/dL 12 Creatinine (0.70-1.30) mg/dL 1.1 Est GFR (CKD-EPI 2020) (mL/min/1.73m2) 87.57 Glucose (74-106) mg/dL 96 Calcium (8.5-10.1) mg/dL 9.3 Magnesium (1.8-2.4) mg/dL 1.9 Total Bilirubin (0.2-1.0) mg/dL 0.4 AST (15-37) U/L 22 ALT (16-63) U/L 45 Alkaline Phosphatase (46-116) U/L 66 Troponin I (< or =60) ng/L < 50 C-Reactive Protein (<or=0.5) mg/dL < 0.50 NT-Pro-B Natriuret Pep (<300) pg/mL 54 Total Protein (6.4-8.2) g/dL 8.3 H Albumin (3.4-5.0) g/dL 4.2 Lipase (16-77) U/L 34 Procalcitonin ng/mL < 0.1 COVID-19 Source Nasopharynx SARS-CoV-2 (PCR) (Negative) Negative Influenza Type A (PCR) (Negative) Negative Influenza Type B (PCR) (Negative) Negative RSV (PCR) (Negative) Negative Quality:SDOH Health Related Social Needs: No Data to Display PFSH All Active Problems (Updated 10/15/23 @ 20:48 by OSITO Galvan) Reactive airway disease (Acute) Walking pneumonia (Acute) Vasovagal episode (Acute) Obstructive sleep apnea syndrome (Chronic) 02/2022-referred for sleep clinic evaluation Diverticulitis of intestine without perforation or abscess (Acute 05/15/17) Confirmed by abd. CT on 01/29/17 Opioid dependence in remission (Acute 10/13/16) 02/2022-several years in remission, on Suboxone, followed by the [facility] Medical History (Updated 10/15/23 @ 20:48 by OSITO Galvan) Subluxation of left shoulder joint Bilateral low back pain without sciatica (07/08/15) History of tobacco use Chews does not smoke Back pain Social History (Updated 12/10/21 @ 11:53 by Harriet Soriano) Smoking/Tobacco Use Status: Current every day Tobacco Type: smokeless tobacco Tobacco: How many years used: 20 Smokeless tobacco user: chewing tobacco Quit status: not considering quitting Smoking risk assessment performed?: Yes Alcohol Intake: never Drug use: Current Sobriety Substance use type: does not use Caregiver/Support person: No Household members: spouse and children Housing: house Communication Needs: None Do you need help understanding health information?: Never Pets and animals: Yes Pets and animals: cat(s) and dog(s) Sexually active: Yes Do you think of yourself as: straight/heterosexual Current gender identity: male What is your relationship status?: How often do you talk on the phone with friends or family?: three or more times per week How often do you get together with friends or relatives?: twice per week How often do you attend jain or mu-ism services?: decline to answer Do you belong to any clubs or organized social groups?: no Panel score (0-1 are the most socially isolated patients): 2 What type of physical activity do you participate in: walking Duration: 30-45 minutes/day Frequency: 1-2 times per week Marybel/Samaritan: No preference Special marybel needs: No Seatbelt use: sometimes Helmet use: Yes Helmet use: always Drive intox or ride w/intox home delivery driver: No Do you feel safe at home: Yes Do you feel safe in your relationship?: Yes Discharge Plan Disposition Patient Disposition: Home Condition: Stable Discharge Details Clinical Impression: Walking pneumonia, Reactive airway disease Primary Care Provider: Andrea Gutierrez ED Provider: Ryan Boone Home Meds and New Rx's Prescriptions: New prednisone 20 mg tablet 40 mg PO DAILY 4 Days Qty: 8 0RF azithromycin 250 mg tablet 250 mg PO DAILY 4 Days Qty: 4 0RF Rx Instructions: start on day 2 of therapy Continued buprenorphine-naloxone [Suboxone] 8-2 mg film 1 film sublingual DAILY Qty: 1 0RF Rx Instructions: [facility] Discharge Instructions Instructions: Albuterol (By breathing), Prednisone (By mouth), Azithromycin (By mouth), Asthma (ED), Reactive Airways Disease (ED) Additional Instructions: You were seen in the emergency department for your reactive airway disease with likely wheezing, I am concerned that you have undiagnosed asthma. He also have a chronic subacute cough, I think it is reasonable to treat you for an atypical pneumonia with azithromycin, your prescriptions have been sent to [facility] in [place]. I have sent you home with an albuterol inhaler to use for shortness of breath as needed, use it once more before bed tonight. I have sent you a course of prednisone, start these tomorrow as we gave you the first dose tonight. Please follow-up with your primary care provider for pulmonary function testing to rule out undiagnosed asthma. Please return to the emergency department for any further respiratory distress, profound lethargy. Referrals: Andrea Gutierrez MANGLE TENDER [Primary Care Provider] -
[2023-10-15 19:08] VITALS: RESP 5
[2023-10-15] MEDS: Albuterol 2.5 MG/3 ML INH SOLN VIAL 7.5 MG UPD (19:08)
[2023-10-15 19:14] LABS: BE (Venous) 6 mmol/L (-2-3); HCO3 (Venous) 32 mmol/L (23-28); O2 Sat (Venous) 43 %; TCO2 (Venous) 29 mmol/L (24-29); pCO2 (Venous) 55 mmHg (41-51); pH (Venous) 7.37 (7.31-7.41); pO2 (Venous) 25 mmHg
[2023-10-15 19:16] LABS: Lactate 0.7 mmol/L (0.6-1.4)
[2023-10-15 19:18] LABS: Abs Immature Grans 0.01 10^3/uL (0.0-0.06); Absolute Basophil Count 0.04 10^3/uL (0.0-0.2); Absolute Eosinophil Count 0.48 10^3/uL (0.0-0.7); Absolute Lymphocyte Count 2.67 10^3/uL (1.2-3.4); Absolute Monocyte Count 0.54 10^3/uL (0.1-0.8); Absolute Neutrophil Count 4.43 10^3/uL (1.2-6.7); Basophils % 0.5; Eosinophils % 5.9; HCT 45.2 % (40.0-50.0); HGB 15.3 g/dL (13.5-17.5); Immature Grans % 0.1; Lymphocytes % 32.7; MCH 29.5 pg (27.0-33.0); MCHC 33.8 % (32.0-36.0); MCV 87 fL (80-95); MPV 10.3 fL (8.0-11.0); Monocytes % 6.6; Neutrophils % 54.2; Platelet Count 216 10^3/uL (130-400); RBC 5.19 10^6/uL (4.36-5.78); RDW-SD 41.1 fL; WBC 8.17 10^3/uL (4.4-10.8)
[2023-10-15 19:20] LABS: ESR 4 mm/hr (0-15)
[2023-10-15 19:37] LABS: ALT 45 U/L (16-63); AST 22 U/L (15-37); Albumin 4.2 g/dL (3.4-5.0); Alkaline Phosphatase 66 U/L (46-116); Anion Gap 7.2 mmol/L (3-11); BUN 12 mg/dL (7-18); Bilirubin, Total 0.4 mg/dL (0.2-1.0); C-Reactive Protein < 0.50 mg/dL (<or=0.5); CO2 30.8 mmol/L (21.0-32.0); CREATININE 1.1 mg/dL (0.70-1.30); Calcium 9.3 mg/dL (8.5-10.1); Chloride 102 mmol/L (98-107); Estimated GFR 87.57 (mL/min/1.73m2); Glucose 96 mg/dL (74-106); Lipase 34 U/L (16-77); Magnesium 1.9 mg/dL (1.8-2.4); NT-proBNP 54 pg/mL (<300); Sodium 140 mmol/L (136-145); Total Protein 8.3 g/dL (6.4-8.2); Troponin I < 50 ng/L (< or =60)
[2023-10-15 19:38] VITALS: RESP 5
[2023-10-15 19:52] LABS: COVID-19 PCR Negative (Negative); Influenza A PCR Negative (Negative); Influenza B PCR Negative (Negative); RSV PCR Negative (Negative)
[2023-10-15 19:53] LABS: Source Nasopharynx
[2023-10-15 19:54] LABS: Procalcitonin < 0.1 ng/mL
[2023-10-15] MEDS: Albuterol HFA 8 GM 60 PUFF INH IH (21:01)
[2023-10-15 21:02] VITALS: BP 142/87; PULSE 91; RESP 18; TEMP 36.5; O2SAT 94
[2023-10-15] MEDS: predniSONE 20 MG TAB 40 MG PO (21:02)
[2023-10-15] MEDS: Azithromycin 250 MG TAB 500 MG PO (21:02)
== END 2023-10-15 21:06 | disposition home or self-care (01) ==
PROVIDERS: Emergency Provider Physician Assistant; PCP Nurse Practitioner Family
DX: J18.8 Other pneumonia, unspecified organism (principal); J45.909 Unspecified asthma, uncomplicated; F17.290 Nicotine dependence, other tobacco product, uncomplicated; Z11.52 Encounter for screening for COVID-19
CPT/HCPCS: 80053; 82805; 83690; 84145; 85652; 87637; 94640; 99285; 71046; 83605; 83735; 83880; 84484; 85025; 86140; 99284; J7512; J7613

== ENCOUNTER 2023-11-26 06:15 | Outpatient (CLI) | payer MEDICAID, SELFPAY ==
[2023-11-26] MEDS: Albuterol HFA 18 GM 200 PUFF INH IH (16:53)
[2023-11-26] MEDS: Inhaler, Assist Device 1 EACH MC (16:54)
[2023-11-26] MEDS: Methacholine 100 MG VIAL IH (16:56)
--- NOTE | 2023-11-27 16:00 | W.PFT ---
Date of service: 11/26/23 Time of Service: 14:59 Pulmonary Function Test Result Indications: Reactive airways disease Interpretation Spirometry: Although the FEV1/FVC ratio is normal, mild airflow obstruction is likely given the flow volume loop and volume time curve appearance. There was a 26% decrease in FEV1 with administration of 0.25mg/dL methacholine. Lung Volumes: There is air trapping Diffusion Capacity: Normal diffusion Airway Pressure: Normal airways resistance Impression Positive methacholine challenge with likely some baseline airflow obstruction. Clinical Correlation therefore is recommended.
== END 2023-11-26 06:16 | disposition home or self-care (01) ==
LOC: RT 06:16
PROVIDERS: PCP Nurse Practitioner Family; Visit Provider Physician Assistant
DX: J45.909 Unspecified asthma, uncomplicated (principal)
CPT/HCPCS: 94060; 94070; 94726; 94729; 94010; J7674

== ENCOUNTER 2023-12-29 23:02 | Emergency (ER) | payer MEDICAID, SELFPAY ==
[2023-12-29] VITALS (40 sets, daily range): PULSE 109; RESP 7–19; TEMP 36.8; O2SAT 94–96
--- NOTE | 2023-12-29 23:15 | RT.EKG_ITS ---
APPROVED REPORT Exam: Resting ECG Reason for Exam: short of breath, chest pain Patient Location: E HR:105 bpm ECG Measurements Heart Rate 105 AXIS SC 135 P 22 QRSd 91 QRS 81 QT 338 T 32 QTc 448 Conclusion Sinus tachycardia...rate> 99 Non-specific intraventricular conduction delay, no pattern injury ischemia
--- NOTE | 2023-12-29 23:27 | ED.GENADUL_ITS ---
Discharge Plan Disposition Patient Disposition: Home Condition: Improving Discharge Details Clinical Impression: Aspiration of gastric contents, Reactive airway disease with wheezing Primary Care Provider: Gemini Emanuel ED Provider: Roderick Farley Home Meds and New Rx's Prescriptions: New moxifloxacin 400 mg tablet 400 mg PO DAILY Qty: 9 0RF Rx Instructions: First dose in ER 12/30/2023 prednisone 10 mg tablet 10 mg PO DAILY Qty: 5 0RF No Action albuterol sulfate [Proventil HFA] 90 mcg/actuation HFA aerosol inhaler 2 puff inhalation Q6H PRN (Reason: shortness of breath or wheezing) Qty: 8.5 0RF budesonide-formoterol [Symbicort] 160-4.5 mcg/actuation HFA aerosol inhaler 2 puff inhalation Q12H Qty: 10.2 3RF buprenorphine-naloxone 4-1 mg film 1 film sublingual DAILY Discharge Instructions Additional Instructions: You have aspirated your gastric contents this evening which resulted in reactive airway disease which is now resolved. You run the risk of developing an aspiration based pneumonia in the interval few days. For this reason you have been prescribed 2 separate medications. Take 1 oral moxifloxacin tablet every day for the next 10 days, beginning tomorrow. Take 1 prednsione tablet everyday for the next 5 days. Follow-up with regular primary care doctor for recheck and further management, especially if symptoms or not improving with this care plan. If you develop significant worsening of shortness of breath in the next few days, you should seek medical attention more urgently for reevaluation. You can always return to the ER for any new concerns or sudden changes in your health which you feel require emergency medical attention HPI General Date/Time Provider Initiated Documentation: 12/29/23 23:05 . HPI Narrative: The patient is a 38-year-old male, with a past medical history significant for COPD, who currently continues to vape, presents to the emergency department this evening after awakening from sleep with refluxing stomach contents and choking upon them. The patient reports that he woke up choking and had difficulty breathing. He was initially nauseated and went in and had a bowel movement but had difficulty catching his breath. He began to have significant audible wheezing at home and used his inhalers repeatedly without any improvement in his respiratory distress. The patient contacted EMS who provided the patient with a DuoNeb treatment in route. The patient reports that he is feeling better from a respiratory standpoint, but he is requiring supplemental oxygen to maintain a normal oxygen saturation above the high 80s. Patient reports that he had copious coughing at the time of the event but does not feel like he needs to cough right now. Related Data Home Medications Medication Instructions Recorded Confirmed albuterol sulfate 90 mcg/actuation 2 puff inhalation Q6H PRN 11/19/23 12/29/23 aerosol inhaler (Proventil HFA) shortness of breath or wheezing #8.5 grams budesonide-formoterol HFA 160 2 puff inhalation Q12H #10.2 grams 12/27/23 12/29/23 mcg-4.5 mcg/actuation aerosol inhaler (Symbicort) buprenorphine 4 mg-naloxone 1 mg 1 film sublingual DAILY 12/29/23 12/29/23 sublingual film moxifloxacin 400 mg tablet 400 mg PO DAILY #9 tabs 12/30/23 prednisone 10 mg tablet 10 mg PO DAILY #5 tabs 12/30/23 Previous Rx's Medication Instructions Recorded albuterol sulfate 90 mcg/actuation 2 puff inhalation Q6H PRN 11/19/23 aerosol inhaler (Proventil HFA) shortness of breath or wheezing #8.5 grams budesonide-formoterol HFA 160 2 puff inhalation Q12H #10.2 grams 12/27/23 mcg-4.5 mcg/actuation aerosol inhaler (Symbicort) moxifloxacin 400 mg tablet 400 mg PO DAILY #9 tabs 12/30/23 prednisone 10 mg tablet 10 mg PO DAILY #5 tabs 12/30/23 Allergies Allergy/AdvReac Type Severity Reaction Status Date / Time Penicillins Allergy Intermediate Skin Rash Verified 12/29/23 23:26 acetaminophen [From Percocet] Allergy Other (See Verified 12/29/23 23:26 Comment) oxycodone [From Percocet] Allergy Other (See Verified 12/29/23 23:26 Comment) Nuts AdvReac Intermediate scratchy Uncoded 12/29/23 23:26 throat, per pt General Stated Complaint: RespSymp STEFAN: 3 Exam Const General: cooperative, healthy appearing and anxious Resp Effort & Inspection: normal respiratory effort and able to speak in complete sentences Auscultation: wheezes inspiratory wheezes and right lower Cardio Jugular venous pressure: no JVD Rate: tachycardic Rhythm: regular rhythm Heart Sounds: S1 normal and S2 normal GI Inspection: normal to inspection Palpation: soft and nontender Auscultation: normal bowel sounds Skin General skin exam: no rashes or lesions noted and turgor normal Neuro General: patient oriented x3, moves all extremities, no focal motor deficits and CN's II-XI intact bilaterally Extrem General: full ROM and no clubbing, cyanosis or edema Right upper extremity: full ROM Left upper extremity: full ROM Course Vital Signs Vital signs: Vital Signs Temperature 36.8 C 12/29/23 23:07 Pulse 109 H 12/29/23 23:07 Respiratory Rate 16 12/29/23 23:07 Pulse Oximetry 94 12/29/23 23:07 Temperature 36.8 C 12/29/23 23:07 Temperature Source Tympanic 12/29/23 23:07 Pulse 109 H 12/29/23 23:07 Respiratory Rate 16 12/29/23 23:07 Pulse Oximetry 94 12/29/23 23:07 Oxygen Delivery Method Nasal Cannula 12/29/23 23:07 Oxygen Flow Rate 4 12/29/23 23:07 Pain Level 0 12/29/23 23:07 Lab/Test Results Lab/Test Results: 12/29/23 23:20 Blood Blood Culture - Pending 12/29/23 23:20 Blood Blood Culture - Pending Medical Decision Making The patient was seen and examined. He is not in any respiratory distress with supplemental oxygen after the nebulizer treatment, but the patient is continuing to require supplemental oxygen to maintain a normal saturation. He continues to have some wheezing, predominantly in the right lower lung field on auscultation. While there certainly could be a pneumonitis present, the concern was that he might also have developed an acute aspiration pneumonia, given his hypoxia. The patient will have ongoing serial nebulizer treatments, IV steroids, and a workup to evaluate for significant underlying lung disease including a chest x-ray, EKG, and troponin. If the patient continues to require supplemental oxygen despite treatment here in the emergency room, he will most likely require admission for ongoing respiratory supportive care, IV antibiotics to prevent aspiration pneumonia, and observation for improvement. The patient's EKG is consistent with pneumonitis or aspiration. The patient recovered his oxygen level after the second nebulizer treatment and is currently saturation in the high 90s on RA. The patient was given oral moxifloxacin to cover community-acquired catherine but also to cover anaerobic catherine that could have come from aspiration. This was chosen because the patient has a penicillin allergy and is not amenable to oral Augmentin. He will be prescribed 10 days of this and 4 days of a prednisone burst for outpatient therapy as a bridge to primary care follow-up if symptoms or not improving. Quality:SDOH Health Related Social Needs: No Data to Display PFSH All Active Problems (Updated 12/30/23 @ 01:18 by Roderick Farley MD) Reactive airway disease with wheezing (Acute) Aspiration of gastric contents (Acute) Chronic nasal congestion (Acute) Vasovagal episode (Acute) Obstructive sleep apnea syndrome (Chronic) 02/2022-referred for sleep clinic evaluation Diverticulitis of intestine without perforation or abscess (Acute 05/15/17) Confirmed by abd. CT on 01/29/17 Opioid dependence in remission (Acute 10/13/16) 02/2022-several years in remission, on Suboxone, followed by the [facility] Medical History Subluxation of left shoulder joint Bilateral low back pain without sciatica (07/08/15) History of tobacco use Chews does not smoke Back pain Social History Smoking/Tobacco Use Status: Current every day Tobacco Type: smokeless tobacco Tobacco: How many years used: 20 Smokeless tobacco user: chewing tobacco Quit status: not considering quitting Smoking risk assessment performed?: Yes Alcohol Intake: never Drug use: Current Sobriety Substance use type: does not use Caregiver/Support person: No Household members: spouse and children Housing: house Communication Needs: None Do you need help understanding health information?: Never Pets and animals: Yes Pets and animals: cat(s) and dog(s) Sexually active: Yes Do you think of yourself as: straight/heterosexual Current gender identity: male What is your relationship status?: How often do you talk on the phone with friends or family?: three or more times per week How often do you get together with friends or relatives?: twice per week How often do you attend moravian or pentecostal services?: decline to answer Do you belong to any clubs or organized social groups?: no Panel score (0-1 are the most socially isolated patients): 2 What type of physical activity do you participate in: walking Duration: 30-45 minutes/day Frequency: 1-2 times per week Marybel/Zoroastrianism: No preference Special marybel needs: No Seatbelt use: sometimes Helmet use: Yes Helmet use: always Drive intox or ride w/intox lyft driver: No Do you feel safe at home: Yes Do you feel safe in your relationship?: Yes
[2023-12-29 23:31] LABS: Abs Immature Grans 0.01 10^3/uL (0.0-0.06); Absolute Basophil Count 0.02 10^3/uL (0.0-0.2); Absolute Eosinophil Count 0.09 10^3/uL (0.0-0.7); Absolute Lymphocyte Count 2.92 10^3/uL (1.2-3.4); Absolute Monocyte Count 0.42 10^3/uL (0.1-0.8); Absolute Neutrophil Count 3.41 10^3/uL (1.2-6.7); Basophils % 0.3 %; Eosinophils % 1.3 %; HCT 43.5 % (40.0-50.0); HGB 14.6 g/dL (13.5-17.5); Immature Grans % 0.1 %; Lymphocytes % 42.5 %; MCHC 33.6 % (32.0-36.0); MCV 89 fL (80-95); Monocytes % 6.1 %; Neutrophils % 49.7 %; Platelet Count 189 10^3/uL (130-400); RBC 4.87 10^6/uL (4.36-5.78); RDW 12.6 % (11.8-14.1); RDW-SD 41.5 fL; WBC 6.87 10^3/uL (4.4-10.8)
[2023-12-29] MEDS: Albuterol/Ipratropium 3 ML UPD VIAL UPD (23:32)
[2023-12-29] MEDS: methylPREDNISolone SUCC 125 MG VIAL IVP (23:32)
--- NOTE | 2023-12-29 23:39 | DI.RAD_ITS ---
Exam(s) XR PORTABLE CHEST AP EXAM: XR PORTABLE CHEST AP CLINICAL HISTORY: hypoxia, SOB after reflux possible aspiration TECHNIQUE: 2D digital imaging was performed. COMPARISON: CR XR CHEST 2V PA LATERAL from 10/15/2023 FINDINGS: LUNGS: Patchy infiltrate left lung base. No pleural abnormality seen. HEART: Normal size. AORTA: Normal diameter. BONES: Unremarkable for age. Soft tissues: Unremarkable. IMPRESSION: Left basilar infiltrate. DATA REPOSITORY: RADIATION DOSE DELIVERED:
[2023-12-29 23:44] LABS: Anion Gap 8.5 mmol/L (3-11); BUN 17 mg/dL (7-18); CO2 28.5 mmol/L (21.0-32.0); CREATININE 1.3 mg/dL (0.70-1.30); Calcium 8.4 mg/dL (8.5-10.1); Chloride 104 mmol/L (98-107); Estimated GFR 71.22 (mL/min/1.73m2); Glucose 267 mg/dL (74-106); Potassium 3.9 mmol/L (3.5-5.1); Sodium 141 mmol/L (136-145); Troponin I < 50 ng/L (< or =60)
[2023-12-30] VITALS (55 sets, daily range): BP systolic 140; BP diastolic 72; PULSE 89; RESP 7–22; TEMP 36.7; O2SAT 96–98
--- NOTE | 2023-12-30 00:17 | DI.VRAD_ITS ---
PROCEDURE INFORMATION: Exam: XR Chest Exam date and time: 12/29/2023 23:33 Age: 38 years old Clinical indication: Other: Hypoxia, SOB after reflux - possible aspiration TECHNIQUE: Imaging protocol: Radiologic exam of the chest. Views: 1 view. COMPARISON: CR XR CHEST 2V PA LATERAL 10/15/2023 17:21 FINDINGS: Lungs: Patchy opacity in the left lung base. Pleural spaces: No pleural effusion. No pneumothorax. Heart/Mediastinum: No cardiomegaly. Bones/joints: No acute fracture. Other findings: Tubular structure projects over left neck base not definitely intravascular presumably external to the patient. IMPRESSION: 1. Concerning for left basilar pneumonia or aspiration. 2. Tubular structure projects over left neck base not definitely intravascular presumably external to the patient. Please correlate with clinical picture. Dictated and Authenticated by: Ainsley Strickland MD. Ordering:ABA Vaughn MD
== END 2023-12-30 02:09 | disposition home or self-care (01) ==
PROVIDERS: Emergency Provider Emergency Medicine Emergency Medical Services; PCP Nurse Practitioner Family
DX: J45.909 Unspecified asthma, uncomplicated (principal); T17.818A Gastric contents in other parts of respiratory tract causing other injury, initial encounter; F17.290 Nicotine dependence, other tobacco product, uncomplicated; K21.9 Gastro-esophageal reflux disease without esophagitis
CPT/HCPCS: 80048; 87040; 93005; 94640; 96374; 99285; 71045; 84484; 85025; 93010; 99284; J2919; J7620

== ENCOUNTER 2024-03-20 10:00 | Emergency (ER) | payer BC, SELFPAY ==
[2024-03-20] VITALS (22 sets, daily range): BP systolic 122–134; BP diastolic 89–101; PULSE 65–80; RESP 7–18; TEMP 37.2; O2SAT 89–99
--- NOTE | 2024-03-20 10:00 | RT.EKG_ITS ---
APPROVED REPORT Exam: Resting ECG Reason for Exam: Dyspnea Patient Location: E HR:76 bpm ECG Measurements Heart Rate 76 AXIS SC 137 P 29 QRSd 93 QRS 67 QT 371 T 55 QTc 419 Conclusion Sinus rhythm...normal P axis, V-rate 60- 99
--- NOTE | 2024-03-20 10:45 | DI.RAD_ITS ---
Exam(s) XR CHEST 2V PA LATERAL EXAM: XR CHEST 2V PA LATERAL CLINICAL HISTORY: SOB,CP, TECHNIQUE: 2D digital imaging was performed of the chest. Two images were obtained. PA and lateral views were obtained. COMPARISON: CR XR CHEST 2V PA LATERAL from 10/15/2023 CR,XR XR PORTABLE CHEST AP from 12/29/2023 FINDINGS: MEDIASTINUM: Normal. HEART: Normal. PULMONARY VASCULATURE: Normal. LUNGS: Clear. PLEURAL SPACE: No pleural effusion or pneumothorax. BONE:Within normal limits for the patient's age. OTHER FINDINGS:Normal. IMPRESSION: No acute pulmonary findings. DATA REPOSITORY: RADIATION DOSE DELIVERED:
--- NOTE | 2024-03-20 11:00 | DI.CT_ITS ---
Exam(s) CT HEAD WO EXAM: CT HEAD WO CLINICAL HISTORY: Dizziness. TECHNIQUE: Imaging Protocol: Axial computed tomography images with coronal and sagittal reformatted images were created and reviewed COMPARISON: No exams were available for comparison FINDINGS: Ventricles and Extra axial spaces: Normal in size and morphology for the patient's age. Hemorrhage: None. Cerebral parenchyma: Normal. Midline shift: None. Brainstem/Cerebellum: Normal. Calvarium: Normal. Visualized Paranasal sinuses/Mastoids: Clear. Soft Tissues: Unremarkable. IMPRESSION: No acute intracranial process. RADIATION DOSE DELIVERED: Total DLP DATA REPOSITORY: All CT scans at this facility are submitted to the National Radiology Data Registry (NRDR) Dose Index Registry (DIR) with the [employer] ([employer]). RADIATION OPTIMIZATION: All CT scans at this facility use at least one of these dose optimization te chniques: automated exposure control; mA and/or kV adjustment per patient size (includes targeted exa ms where dose is matched to clinical indication); or iterative reconstruction.
--- NOTE | 2024-03-20 11:01 | W.ED.GENAD ---
Discharge Plan Disposition Patient Disposition: Home Condition: Stable Discharge Details Clinical Impression: Chest pain, Elevated TSH, Near syncope Primary Care Provider: Gemini Emanuel ED Provider: Yadi Gomez Home Meds and New Rx's Prescriptions: Continued albuterol sulfate [Proventil HFA] 90 mcg/actuation HFA aerosol inhaler 2 puff inhalation Q6H PRN (Reason: shortness of breath or wheezing) Qty: 8.5 0RF budesonide-formoterol [Symbicort] 160-4.5 mcg/actuation HFA aerosol inhaler 2 puff inhalation Q12H Qty: 10.2 3RF omeprazole 40 mg capsule,delayed release(DR/EC) 40 mg PO DAILY Qty: 90 1RF buprenorphine-naloxone 4-1 mg film 1 film sublingual DAILY Discharge Instructions Instructions: Near Fainting (DC), Chest Pain, Adult ED Additional Instructions: Your thyroid-stimulating hormone was elevated today. Please follow-up with your primary care provider regarding this. No evidence of stroke, no evidence of heart attack at this time. Chest x-ray within normal limits. No evidence of urinary tract infection. Please consider taking a baby aspirin daily or as directed by your primary care provider. Return to the ER for any worsening chest pain, dizziness lightheadedness fainting vomiting fever or concerns. Follow up with primary care provider in 3-5 days. Return to ED sooner if any worsening or concerns. Referrals: Gemini Emanuel, [employer] [Primary Care Provider] - 5 days Discharge Data Discharge Date/Time-TO BE ENTERED AT DEPARTURE: 03/20/24 13:53 HPI General Mode of arrival: ambulatory. Date/Time Provider Initiated Documentation: 03/20/24 10:22. Limitations to Documentation: no limitations. Information obtained by: patient, RN notes reviewed and old records reviewed. HPI Narrative: 38-year-old male presents to the ER with a chief complaint of shortness of breath, dizziness, and what he describes as near syncopal episode, midsternal chest pain and abdominal bloating. 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 Does have a history of asthma, he is a former smoker, obesity. He reports upon arrival that his symptoms have subsided. He was hypertensive upon initial presentation at 131/101. Lungs are clear to auscultation bilaterally. No focal neurologic deficits noted. Other past medical history includes GERD and former substance abuse. He does take Suboxone. He denies any current drug use, denies any alcohol use. He is alert and oriented x 4, Related Data Home Medications ?Medication ?Instructions ?Recorded ?Confirmed albuterol sulfate 90 mcg/actuation 2 puff inhalation Q6H PRN 11/19/23 03/20/24 aerosol inhaler (Proventil HFA) shortness of breath or wheezing #8.5 grams budesonide-formoterol HFA 160 2 puff inhalation Q12H #10.2 grams 12/27/23 03/20/24 mcg-4.5 mcg/actuation aerosol inhaler (Symbicort) buprenorphine 4 mg-naloxone 1 mg 1 film sublingual DAILY 12/29/23 03/20/24 sublingual film omeprazole 40 mg capsule,delayed 40 mg PO DAILY #90 caps 12/31/23 03/20/24 release Previous Rx's ?Medication ?Instructions ?Recorded albuterol sulfate 90 mcg/actuation 2 puff inhalation Q6H PRN 11/19/23 aerosol inhaler (Proventil HFA) shortness of breath or wheezing #8.5 grams budesonide-formoterol HFA 160 2 puff inhalation Q12H #10.2 grams 12/27/23 mcg-4.5 mcg/actuation aerosol inhaler (Symbicort) omeprazole 40 mg capsule,delayed 40 mg PO DAILY #90 caps 12/31/23 release Allergies Allergy/AdvReac Type Severity Reaction Status Date / Time Penicillins Allergy Intermediate Skin Rash Verified 01/22/24 16:09 acetaminophen (From Percocet) Allergy Other (See Verified 01/22/24 16:09 Comment) oxycodone (From Percocet) Allergy Other (See Verified 01/22/24 16:09 Comment) Nuts AdvReac Intermediate scratchy Uncoded 01/22/24 16:09 throat, per pt General Stated Complaint: Dizzy/Sync STEFAN: 3 Review of Systems All systems reviewed & are unremarkable except as noted in HPI and below Constitutional Constitutional: Denies weakness ENT Ears, Nose, Mouth, and Throat: Reports dizziness and Denies disequilibrium Cardiovascular Cardiovascular: Reports chest pain and Reports dyspnea Respiratory Respiratory: Reports as per HPI, Denies chest congestion, Denies cough, Denies hemoptysis, Reports dyspnea, Denies stridor and Denies wheezing Gastrointestinal Gastrointestinal: Reports bloating Genitourinary Genitourinary: Reports system reviewed and no additional complaints, except as documented Neurologic Neurologic: Denies confusion, Reports dizziness, Denies localized weakness, Denies memory loss, Denies convulsions, Denies paresthesias, Denies disequilibrium and Denies weakness Psychiatric Psychiatric: Denies confusion and Denies memory loss Allergic/Immunologic Allergic/Immunologic: Denies wheezing Exam Narrative Exam Narrative: Constitutional: Alert and oriented x3. Appears stated age. Obese body habitus. Head: Normocephalic, no trauma. Eyes: Pupils PERRL, Red reflex noted, EOM's intact. Eyelids symmetrical without lesions, discharge, or swelling. ENT: Bilateral TM's WNL, External ear normal to inspection, no mastoid TTP, swelling, or erythema, Nasal turbinates WNL, no nasal discharge. Normal dentition, Posterior pharynx WNL, no exudate. Chest: RRR, Normal S1, S2, distal pulses intact. Resp: Lungs clear to auscultation bilaterally, no wheezes, rales, or rhonchi. Abdomen: non-distended, Normoactive bowel sounds all 4 quads. Nontender with palpation all 4 quadrants. Musculoskeletal: Unable to assess gait, moves all 4 extremities without difficulty. Skin: No suspicious rashes or lesions. Capillary refill less than 2 sec. Neurologic: Cranial nerves II-XII intact. Alert and oriented x 3. Motor: No deficits noted. Sensory: Intact bilaterally all 4 extremities. Hematologic/Lymphatic: No ecchymosis, no lymphadenopathy. Course Vital Signs Vital signs: Vital Signs Temperature 37.2 C 03/20/24 10:12 Pulse 74 03/20/24 10:12 Respiratory Rate 17 03/20/24 10:12 Blood Pressure 131/101 H 03/20/24 10:12 Pulse Oximetry 97 03/20/24 10:12 Temperature 37.2 C 03/20/24 10:12 Temperature Source Temporal Artery Scan 03/20/24 10:12 Pulse 74 03/20/24 10:12 Respiratory Rate 17 03/20/24 10:12 Blood Pressure 131/101 H 03/20/24 10:12 Blood Pressure Position Sitting 03/20/24 10:12 Pulse Oximetry 97 03/20/24 10:12 Oxygen Delivery Method Room Air 03/20/24 10:12 Oxygen Flow Rate 0 03/20/24 10:12 Pain Level 8 03/20/24 10:12 Medical Decision Making 38-year-old male presents to the ER with a chief complaint of shortness of breath, dizziness, and what he describes as near syncopal episode, midsternal chest pain and abdominal bloating. 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 Does have a history of asthma, he is a former smoker, obesity. He reports upon arrival that his symptoms have subsided. He was hypertensive upon initial presentation at 131/101. Lungs are clear to auscultation bilaterally. No focal neurologic deficits noted. Other past medical history includes GERD and former substance abuse. He does take Suboxone. He denies any current drug use, denies any alcohol use. He is alert and oriented x 4, Cardiac workup ordered including serial troponins, CBC CMP, EKG which was obtained upon arrival, chest x-ray, head Ct, Aspirin 324 mg PO. EKG was reviewed by Dr. Jurado and myself ER attending, normal sinus rhythm, old EKG available for review. Please see official report. Differential diagnose includes not limited to CAD, NSTEMI,Anxiety, asthma attack, CVA, TIA, hypertensive urgency. 2-hour troponin within normal limits. Blood pressure is improved. Discussed with TSH slightly elevated T4 within normal limits CT head and chest x-ray within normal limits. Discussed workup results with patient who verbalized understanding and reports he feels better. Discussed follow-up, strict return instructions and home care. This text was generated using [employer] system, please disregard any oddities of phrase or misspellings. Medical Records Medical records reviewed: Yes I reviewed the patient's medical records. Lab Data Lab results reviewed: Yes I reviewed the patient's lab results. Labs: Laboratory Tests Range/Units 03/20/24 03/20/24 03/20/24 11:07 11:10 13:08 WBC (4.4-10.8) 10^3/uL 6.72 RBC (4.36-5.78) 10^6/uL 5.22 Hgb (13.5-17.5) g/dL 15.4 Hct (40.0-50.0) % 45.0 MCV (80-95) fL 86 MCH (27.0-33.0) pg 29.5 MCHC (32.0-36.0) % 34.2 RDW (11.8-14.1) % 12.4 Plt Count (130-400) 10^3/uL 222 MPV (8.0-11.0) fL 10.5 Immature Gran % % 0.3 Neutrophils % % 60.9 Lymphocytes % % 28.7 Monocytes % % 8.6 Eosinophils % % 1.2 Basophils % % 0.3 Nucleated RBC % (0.0-0.3) % 0.0 Absolute Neutrophils (1.2-6.7) 10^3/uL 4.09 Absolute Lymphocytes (1.2-3.4) 10^3/uL 1.93 Absolute Monocytes (0.1-0.8) 10^3/uL 0.58 Absolute Eosinophils (0.0-0.7) 10^3/uL 0.08 Absolute Basophils (0.0-0.2) 10^3/uL 0.02 Sodium (136-145) mmol/L 138 Potassium (3.5-5.1) mmol/L 3.9 Chloride (98-107) mmol/L 101 Carbon Dioxide (21.0-32.0) mmol/L 29.8 Anion Gap (3-11) mmol/L 7.2 BUN (7-18) mg/dL 19 H Creatinine (0.70-1.30) mg/dL 1.1 Est GFR (CKD-EPI 2020) (mL/min/1.73m2) 87.03 Glucose (74-106) mg/dL 104 Calcium (8.5-10.1) mg/dL 9.2 Magnesium (1.8-2.4) mg/dL 1.8 Total Bilirubin (0.2-1.0) mg/dL 0.31 AST (15-37) U/L 14 L ALT (16-63) U/L 45 Alkaline Phosphatase (46-116) U/L 76 Troponin I (< or =60) ng/L < 50 < 50 Total Protein (6.4-8.2) g/dL 7.7 Albumin (3.4-5.0) g/dL 4.0 TSH (0.36-3.74) uIU/Ml 3.82 H Thyroxine (T4) (4.7-13.3) ug/dL 8.7 Urine Color (Yellow) Yellow Urine Clarity (Clear) Clear Urine pH (5-8) 7.5 Ur Specific [place] (1.005-1.025) 1.015 Urine Protein (Neg-Trace) mg/dL Negative Urine Ketones (Negative) mg/dL Negative Urine Blood (Negative) Negative Urine Nitrite (Negative) Negative Urine Bilirubin (Negative) Negative Urine Urobilinogen (Up to 0.2) mg/dL 0.2 Ur Leukocyte Esterase (Negative) Negative Urine Glucose (Negative) mg/dL Negative Quality:SDOH Health Related Social Needs: No Data to Display PFSH All Active Problems (Updated 03/20/24 @ 13:51 by Yadi Gomez NP) Near syncope (Acute) Elevated TSH (Acute) Chest pain (Acute) GERD (gastroesophageal reflux disease) (Chronic) Chronic nasal congestion (Acute) Vasovagal episode (Acute) Obstructive sleep apnea syndrome (Chronic) 02/2022-referred for sleep clinic evaluation Diverticulitis of intestine without perforation or abscess (Acute 05/15/17) Confirmed by abd. CT on 01/29/17 Opioid dependence in remission (Acute 10/13/16) 02/2022-several years in remission, on Suboxone, followed by the [facility] Medical History Subluxation of left shoulder joint Bilateral low back pain without sciatica (07/08/15) History of tobacco use Chews does not smoke Back pain Social History Smoking/Tobacco Use Status: Current every day Tobacco Type: smokeless tobacco Tobacco: How many years used: 20 Smokeless tobacco user: chewing tobacco Quit status: not considering quitting Smoking risk assessment performed?: Yes Alcohol Intake: never Drug use: Current Sobriety Substance use type: does not use Caregiver/Support person: No Household members: spouse and children Housing: house Communication Needs: None Do you need help understanding health information?: Never Pets and animals: Yes Pets and animals: cat(s) and dog(s) Sexually active: Yes Do you think of yourself as: straight/heterosexual Current gender identity: male What is your relationship status?: How often do you talk on the phone with friends or family?: three or more times per week How often do you get together with friends or relatives?: twice per week How often do you attend islam or pentecostal services?: decline to answer Do you belong to any clubs or organized social groups?: no Panel score (0-1 are the most socially isolated patients): 2 What type of physical activity do you participate in: walking Duration: 30-45 minutes/day Frequency: 1-2 times per week Marybel/Shinto: No preference Special marybel needs: No Seatbelt use: sometimes Helmet use: Yes Helmet use: always 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
[2024-03-20 11:18] LABS: Abs Immature Grans 0.02 10^3/uL (0.0-0.06); Absolute Basophil Count 0.02 10^3/uL (0.0-0.2); Absolute Eosinophil Count 0.08 10^3/uL (0.0-0.7); Absolute Lymphocyte Count 1.93 10^3/uL (1.2-3.4); Absolute Monocyte Count 0.58 10^3/uL (0.1-0.8); Absolute Neutrophil Count 4.09 10^3/uL (1.2-6.7); Basophils % 0.3 %; Eosinophils % 1.2 %; HGB 15.4 g/dL (13.5-17.5); Immature Grans % 0.3 %; Lymphocytes % 28.7 %; MCH 29.5 pg (27.0-33.0); MCHC 34.2 % (32.0-36.0); MCV 86 fL (80-95); MPV 10.5 fL (8.0-11.0); Monocytes % 8.6 %; Neutrophils % 60.9 %; Platelet Count 222 10^3/uL (130-400); RBC 5.22 10^6/uL (4.36-5.78); RDW 12.4 % (11.8-14.1); RDW-SD 39.1 fL; WBC 6.72 10^3/uL (4.4-10.8)
[2024-03-20 11:48] LABS: Bilirubin Negative (Negative); Blood Negative (Negative); Clarity Clear (Clear); Glucose Negative (Negative); Ketones Negative (Negative); Leukocyte Esterase Negative (Negative); Nitrite Negative (Negative); Specific Gravity 1.015 (1.005-1.025); Urobilinogen 0.2 mg/dL (Up to 0.2); pH 7.5 (5-8)
[2024-03-20] MEDS: Aspirin 81 MG CHEW 324 MG CH (12:11)
[2024-03-20 12:13] LABS: ALT 45 U/L (16-63); AST 14 U/L (15-37); Alkaline Phosphatase 76 U/L (46-116); Anion Gap 7.2 mmol/L (3-11); BUN 19 mg/dL (7-18); Bilirubin, Total 0.31 mg/dL (0.2-1.0); CO2 29.8 mmol/L (21.0-32.0); CREATININE 1.1 mg/dL (0.70-1.30); Calcium 9.2 mg/dL (8.5-10.1); Chloride 101 mmol/L (98-107); Estimated GFR 87.03 (mL/min/1.73m2); Glucose 104 mg/dL (74-106); Magnesium 1.8 mg/dL (1.8-2.4); Potassium 3.9 mmol/L (3.5-5.1); Sodium 138 mmol/L (136-145); TSH 3.82 uIU/Ml (0.36-3.74); Total Protein 7.7 g/dL (6.4-8.2); Troponin I < 50 ng/L (< or =60)
[2024-03-20 13:03] LABS: T4 8.7 ug/dL (4.7-13.3)
[2024-03-20 13:36] LABS: Troponin I < 50 ng/L (< or =60)
== END 2024-03-20 13:53 | disposition home or self-care (01) ==
PROVIDERS: Emergency Provider Registered Nurse Emergency; PCP Nurse Practitioner Family
DX: R07.9 Chest pain, unspecified (principal); R94.6 Abnormal results of thyroid function studies; R55 Syncope and collapse; F17.220 Nicotine dependence, chewing tobacco, uncomplicated
CPT/HCPCS: 36415; 80053; 93005; 99285; 70450; 71046; 81003; 83735; 84436; 84443; 84484; 85025; 93010; 99284

== ENCOUNTER 2024-09-09 11:17 | Outpatient (REF) | payer BC, SELFPAY | END 2024-09-09 11:18 | disposition home or self-care (01) | LOC: LBN 11:17 | PROVIDERS: PCP Nurse Practitioner Family; Visit Provider Nurse Practitioner Family | DX: J02.9 Acute pharyngitis, unspecified (principal); R68.89 Other general symptoms and signs; J03.90 Acute tonsillitis, unspecified | CPT/HCPCS: 87070 ==

== ENCOUNTER 2024-11-12 18:53 | Observation (INO) | payer BC, SELFPAY ==
[2024-11-12] VITALS (14 sets, daily range): BP systolic 135–169; BP diastolic 91–94; PULSE 74–105; RESP 16–22; TEMP 36.5–36.6; O2SAT 93–98
--- NOTE | 2024-11-12 19:15 | DI.CT_ITS ---
Exam(s) CT ABDOMEN PELVIS W EXAM: CT ABDOMEN PELVIS W CLINICAL HISTORY: RLQ PAIN. TECHNIQUE: Imaging Protocol: Axial computed tomography images with coronal and sagittal reformatted images were created and reviewed CONTRAST MATERIAL: Intravenous: Omnipaque 350 Contrast volume:100 ml Oral: no COMPARISON: CT ABD PELVIS WITH CONTRAST from 01/28/2017 FINDINGS: ABDOMEN and PELVIS: Lung Bases: No acute findings. Liver: Enlarged at 19 cm in length.. Question mild fatty infiltration. No suspicious mass. Gallbladder and biliary tract: No radiodense calculus. No wall thickening or pericholecystic fluid. No biliary dilation. Pancreas: Normal density. No abnormal calcifications or inflammatory process. No evidence of mass. Spleen: Normal. Kidneys: Normal size, contour and axis. No radiodense stones. No obstructive uropathy. No suspicious masses seen. Adrenal glands: No masses seen. Vasculature: Abdominal aorta non-dilated. Soft tissues: Minimal fat containing umbilical hernia. Bladder: No gross wall thickening. No calculi.No focal mass. Bowel: No obstruction. No bowel wall thickening. The appendix is mildly dilated compared to the lucretia or exam and there is some surrounding stranding in the fat, suspicious for early appendicitis. Scatt ered diverticulosis. No evidence of diverticulitis. Peritoneal cavity: No ascites. No focal collection. No free air. Bones: Unrema degenerative changes in the lower lumbar spine. Reproductive organs: Unremarkable. Lymph nodes: No pathologically enlarged lymph nodes. IMPRESSION:: Findings consistent with early acute appendicitis. RADIATION DOSE DELIVERED: 748.33mGy.cm Total DLP DATA REPOSITORY: All CT scans at this facility are submitted to the National Radiology Data Registry (NRDR) Dose Index Registry (DIR) with the [employer] (ACR). RADIATION OPTIMIZATION: All CT scans at this facility use at least one of these dose optimization te chniques: automated exposure control; mA and/or kV adjustment per patient size (includes targeted exa ms where dose is matched to clinical indication); or iterative reconstruction.
[2024-11-12] MEDS: Ondansetron 4 MG/2 ML VIAL IVP (19:30)
[2024-11-12] MEDS: ACETAMINOPHEN 1,000 MG/100 ML BAG 400 MG (19:31)
--- NOTE | 2024-11-12 19:31 | ED.GENADUL_ITS ---
Discharge Plan Disposition Patient Disposition: Admit to [facility] Condition: Stable Discharge Details Chief Complaint: Abd Prob Clinical Impression: Abdominal pain, Acute appendicitis Primary Care Provider: Gemini Emanuel ED Provider: Sapphire Hassan Home Meds and New Rx's Prescriptions: No Action albuterol sulfate [Proventil HFA] 90 mcg/actuation HFA aerosol inhaler 2 puff inhalation Q6H PRN (Reason: shortness of breath or wheezing) Qty: 8.5 0RF budesonide-formoterol [Symbicort] 160-4.5 mcg/actuation HFA aerosol inhaler 2 puff inhalation Q12H Qty: 10.2 3RF omeprazole 40 mg capsule,delayed release(DR/EC) 40 mg PO DAILY Qty: 90 1RF buprenorphine-naloxone 4-1 mg film 1 film sublingual DAILY HPI General Date/Time Provider Initiated Documentation: 11/12/24 19:15 . Limitations to Documentation: no limitations . Information obtained by: patient . HPI Narrative: 39-year-old gentleman with past medical history of opiate dependence, diverticulitis presents for evaluation of acute onset right lower quadrant abdominal pain. Symptoms started about an hour ago. Pins symptoms are severe, constant. No exacerbating or relieving things noted. The patient reports tenderness when he does touches right lower side of his abdomen. He denies any fever, nausea or vomiting. He reports that he had a bowel movement earlier today. Has not had any prior abdominal surgeries. Related Data Home Medications ?Medication ?Instructions ?Recorded ?Confirmed albuterol sulfate 90 mcg/actuation 2 puff inhalation Q6H PRN 11/19/23 11/12/24 aerosol inhaler (Proventil HFA) shortness of breath or wheezing #8.5 grams budesonide-formoterol HFA 160 2 puff inhalation Q12H #10.2 grams 12/27/23 11/12/24 mcg-4.5 mcg/actuation aerosol inhaler (Symbicort) buprenorphine 4 mg-naloxone 1 mg 1 film sublingual DAILY 12/29/23 11/12/24 sublingual film omeprazole 40 mg capsule,delayed 40 mg PO DAILY #90 caps 03/27/24 11/12/24 release Previous Rx's ?Medication ?Instructions ?Recorded albuterol sulfate 90 mcg/actuation 2 puff inhalation Q6H PRN 11/19/23 aerosol inhaler (Proventil HFA) shortness of breath or wheezing #8.5 grams budesonide-formoterol HFA 160 2 puff inhalation Q12H #10.2 grams 12/27/23 mcg-4.5 mcg/actuation aerosol inhaler (Symbicort) omeprazole 40 mg capsule,delayed 40 mg PO DAILY #90 caps 03/27/24 release Allergies Allergy/AdvReac Type Severity Reaction Status Date / Time Penicillins Allergy Intermediate Skin Rash Verified 11/12/24 19:07 acetaminophen (From Percocet) Allergy Other (See Verified 11/12/24 19:07 Comment) oxycodone (From Percocet) Allergy Other (See Verified 11/12/24 19:07 Comment) Nuts AdvReac Intermediate scratchy Uncoded 11/12/24 19:07 throat, per pt General Stated Complaint: Abd Prob STEFAN: 2 Exam Narrative Exam Narrative: Review of Systems: All systems reviewed & are unremarkable except as noted in HPI and below Well-developed, appears diaphoretic NCAT RRR Unlabored respiratory effort clear bilaterally Nondistended abdomen soft, right lower quadrant tenderness with guarding Course Vital Signs Vital signs: Vital Signs Temperature 36.6 C 11/12/24 19:00 Pulse 87 11/12/24 19:00 Blood Pressure 169/94 H 11/12/24 19:00 Pulse Oximetry 93 11/12/24 19:00 Temperature 36.6 C 11/12/24 19:04 Temperature Source Oral 11/12/24 19:04 Pulse 87 11/12/24 19:04 Respiratory Rate 22 11/12/24 19:04 Blood Pressure 169/94 H 11/12/24 19:04 Blood Pressure Position Sitting 11/12/24 19:04 Pulse Oximetry 98 11/12/24 19:04 Oxygen Delivery Method Nasal Cannula 11/12/24 19:04 Pain Level 9 11/12/24 19:15 Medical Decision Making Emergent evaluation of acute onset right lower quadrant abdominal pain. Initial differential includes acute appendicitis, perforated diverticulitis, renal colic. The patient has significant tenderness on examination, but is afebrile. Plan for pain control, nonnarcotic per the patient's request, lab work and CT imaging. lab work demonstrates a mild leukocytosis, no electrolyte derangement or anemia. Renal function is within normal limits. CT imaging does demonstrate acute appendicitis. Patient reports initial improvement in pain with Tylenol, but the symptoms have not returned. He is preferring to avoid opiate pain control, so I will give a dose of droperidol to help with pain. He is allergic to penicillin so I will give Rocephin and metronidazole. I discussed with general surgery and the patient will be admitted to their service for acute operative management of acute appendicitis. Quality:SDOH Health Related Social Needs: No Data to Display PFSH All Active Problems (Updated 11/12/24 @ 21:08 by Sapphire Hassan MD) Acute appendicitis (Acute) Abdominal pain (Acute) COPD (chronic obstructive pulmonary disease) (Chronic) GERD (gastroesophageal reflux disease) (Chronic) Chronic nasal congestion (Acute) Vasovagal episode (Acute) Obstructive sleep apnea syndrome (Chronic) 02/2022-referred for sleep clinic evaluation Diverticulitis of intestine without perforation or abscess (Acute 05/15/17) Confirmed by abd. CT on 01/29/17 Opioid dependence in remission (Acute 10/13/16) 02/2022-several years in remission, on Suboxone, followed by the [facility] Medical History Subluxation of left shoulder joint Bilateral low back pain without sciatica (07/08/15) History of tobacco use Chews does not smoke Back pain Social History Smoking/Tobacco Use Status: Current every day Tobacco Type: smokeless tobacco Tobacco: How many years used: 20 Smokeless tobacco user: chewing tobacco Quit status: not considering quitting Smoking risk assessment performed?: Yes Alcohol Intake: never Drug use: Current Sobriety Substance use type: does not use Caregiver/Support person: No Household members: spouse and children Housing: house Communication Needs: None Do you need help understanding health information?: Never Pets and animals: Yes Pets and animals: cat(s) and dog(s) Sexually active: Yes Do you think of yourself as: straight/heterosexual Current gender identity: male What is your relationship status?: How often do you talk on the phone with friends or family?: three or more times per week How often do you get together with friends or relatives?: twice per week How often do you attend judaism or moravian services?: decline to answer Do you belong to any clubs or organized social groups?: no Panel score (0-1 are the most socially isolated patients): 2 What type of physical activity do you participate in: walking Duration: 30-45 minutes/day Frequency: 1-2 times per week Marybel/Taoism: No preference Special marybel needs: No Seatbelt use: sometimes Helmet use: Yes Helmet use: always 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
[2024-11-12] MEDS: Normal Saline - Diluent 50 ML VIAL IJ (19:43)
[2024-11-12] MEDS: Omnipaque 350 MG/ML 100 ML BTL IJ (19:43)
[2024-11-12 20:05] LABS: BUN 17 mg/dL (7-18); Calcium 9.3 mg/dL (8.5-10.1); Glucose 112 mg/dL (74-106)
[2024-11-12 20:06] LABS: ALT 49 U/L (16-63); AST 21 U/L (15-37); Albumin 4.2 g/dL (3.4-5.0); Alkaline Phosphatase 90 U/L (46-116); Anion Gap 6.2 mmol/L (3-11); Bilirubin, Total 0.4 mg/dL (0.2-1.0); CO2 32.8 mmol/L (21.0-32.0); CREATININE 1.2 mg/dL (0.70-1.30); Chloride 104 mmol/L (98-107); Estimated GFR 77.92 (mL/min/1.73m2); Potassium 3.7 mmol/L (3.5-5.1); Sodium 143 mmol/L (136-145)
[2024-11-12 20:07] LABS: HCT 47.8 % (40.0-50.0); MCH 29.4 pg (27.0-33.0); MCHC 33.5 % (32.0-36.0); MCV 88 fL (80-95); RBC 5.44 10^6/uL (4.36-5.78); WBC 11.71 10^3/uL (4.4-10.8)
[2024-11-12 20:08] LABS: Absolute Basophil Count 0.04 10^3/uL (0.0-0.2); Absolute Eosinophil Count 0.26 10^3/uL (0.0-0.7); Absolute Lymphocyte Count 3.17 10^3/uL (1.2-3.4); Absolute Monocyte Count 0.93 10^3/uL (0.1-0.8); Absolute Neutrophil Count 7.28 10^3/uL (1.2-6.7); Basophils % 0.3 %; Eosinophils % 2.2 %; Immature Grans % 0.3 %; Lymphocytes % 27.1 %; MPV 10.8 fL (8.0-11.0); Monocytes % 7.9 %; Neutrophils % 62.2 %; Platelet Count 228 10^3/uL (130-400); RDW 12.7 % (11.8-14.1); RDW-SD 40.7 fL
[2024-11-12 20:31] LABS: Bilirubin Negative (Negative); Blood Negative (Negative); Clarity Clear (Clear); Glucose Negative (Negative); Ketones Negative (Negative); Leukocyte Esterase Negative (Negative); Nitrite Negative (Negative); Urobilinogen 0.2 mg/dL (Up to 0.2)
--- NOTE | 2024-11-12 20:51 | DI.VRAD_ITS ---
PROCEDURE INFORMATION: Exam: CT Abdomen And Pelvis With Contrast Exam date and time: 11/12/2024 7:45 PM Age: 39 years old Clinical indication: Abdominal pain; Other: Rlq pain TECHNIQUE: Imaging protocol: Computed tomography of the abdomen and pelvis with contrast. Contrast material: OMNIPAQUE 350; Contrast volume: 100 ml; Contrast route: INTRAVENOUS (IV); COMPARISON: CR XR ABDOMEN FLAT UPRIGHT 09/17/2020 3:03 PM FINDINGS: Lungs: Lung bases clear. Liver: Possible fatty infiltration of the liver, difficult to confidently diagnose by CT imaging after administration of intravenous contrast. Gallbladder and biliary ducts: Gallbladder partially collapsed. No calcified gallstones seen. No biliary dilatation. Pancreas: Normal appearing pancreas. Spleen: Normal appearing spleen. Adrenal glands: Normal appearing adrenal glands. Kidneys and ureters: Normal appearing kidneys. No hydronephrosis. No obstructing ureteral stones. Stomach and bowel: No oral contrast. Stomach partially decompressed. No small bowel dilatation to suggest obstruction. Scattered colonic diverticula. No evidence of diverticulitis or colitis. Appendix: Appendix partially fluid-filled and partially gas-filled, only mildly distended to 7 mm maximum transverse dimension but with mild thickening and enhancement of the appendiceal wall and mild adjacent hazy fat stranding suspicious for mild or early acute appendicitis in a patient with right lower quadrant pain. Clinical correlation recommended. Intraperitoneal space: No gross ascites or free air. Vasculature: Normal caliber abdominal aorta. Lymph nodes: No pathologically enlarged mesenteric, retroperitoneal, or pelvic sidewall lymph nodes. Urinary bladder: Normal appearing urinary bladder. Reproductive: Normal-appearing prostate gland and seminal vesicles. Bones/joints: No acute fracture seen among the bones of the abdomen or pelvis. Moderate discogenic degeneration at L4-L5 and L5-S1 with prominent posterior osteophytic ridging at both levels. Soft tissues: Small fat containing ventral hernia at the umbilicus. IMPRESSION: Suspected mild or early acute appendicitis, as described. Clinical correlation recommended. This case was discussed personally with BRAD DUDLEY at 8:50 PM EDT on 11/12/2024. Dictated and Authenticated by: Dk Zamora MD. Orderin Mo Gee MD
[2024-11-12] MEDS: Droperidol 5 MG/2 ML VIAL 2.5 MG IVP (21:04)
[2024-11-12] MEDS: cefTRIAXone 2 GM/50 ML BAG IVPB (21:04)
[2024-11-12] MEDS: metroNIDAZOLE 500 MG/100 ML BAG 100 MG IVPB (21:38)
--- NOTE | 2024-11-12 22:29 | W.PC.ACHO ---
Registration Status: Primary Language: Preferred Language: ED Information & Data Chief Complaint Abd Prob 11/12/24 19:34 Triage Note Patient presented with 11/12/24 19:00 sudden abdominal pain that worsens in the middle of his abdomen and to the right lower quadrant. Denies fever and vomiting. Had a normal BM today. Medical / Surgical History (Last Reviewed 03/20/24 @ 11:04 by Yadi Gomez NP) Subluxation of left shoulder joint Bilateral low back pain without sciatica (07/08/15) History of tobacco use Back pain Most Recent Vital Signs Temperature 36.6 C 11/12/24 19:04 Temperature Source Oral 11/12/24 19:04 Pulse 87 11/12/24 19:04 Respiratory Rate 22 11/12/24 19:04 Blood Pressure 169/94 H 11/12/24 19:04 Blood Pressure Position Sitting 11/12/24 19:04 Pulse Oximetry 98 11/12/24 19:04 Oxygen Delivery Method Nasal Cannula 11/12/24 19:04 Pain Level 9 11/12/24 19:15 Allergies Penicillins Allergy (Intermediate, Verified 11/12/24 19:07) Skin Rash acetaminophen (From Percocet) Allergy (Verified 11/12/24 19:07) Other (See Comment) Got addicted oxycodone (From Percocet) Allergy (Verified 11/12/24 19:07) Other (See Comment) Got addicted Nuts Adverse Reaction (Intermediate, Uncoded 11/12/24 19:07) scratchy throat, per pt Scratchy throat, per pt Active Medications Generic Name Dose Route Start Last Admin Trade Name Ramboq PRN Reason Stop Dose Admin Iohexol 100 ml 11/12/24 19:45 11/12/24 19:43 Omnipaque 350 Mg/Ml 100 Ml Btl IJ 12/12/24 23:59 100 ml DIRECTED GEOFFREY Administration Sodium Chloride 50 ml 11/12/24 19:45 11/12/24 19:43 Normal Saline - Diluent 50 Ml Vial IJ 50 ml .FOR DI USE GEOFFREY Administration IV IV Catheter Type [Right Peripheral IV Antecubital] IV Catheter Gauge [Right 18 Antecubital] Diet Orders Category Date Time Status Nothing Per Oral [DIET] Nutrition 11/13/24 Breakfast Ordered Diagnostics 11/12/24 11/12/24 Range/Units 20:10 19:14 WBC 11.71 H (4.4-10.8) 10^3/uL RBC 5.44 (4.36-5.78) 10^6/uL Hgb 16.0 (13.5-17.5) g/dL Hct 47.8 (40.0-50.0) % MCV 88 (80-95) fL MCH 29.4 (27.0-33.0) pg MCHC 33.5 (32.0-36.0) % RDW 12.7 (11.8-14.1) % Plt Count 228 (130-400) 10^3/uL MPV 10.8 (8.0-11.0) fL Immature Gran % 0.3 % Neutrophils % 62.2 % Lymphocytes % 27.1 % Monocytes % 7.9 % Eosinophils % 2.2 % Basophils % 0.3 % Nucleated RBC % 0.0 (0.0-0.3) % Absolute Neutrophils 7.28 H (1.2-6.7) 10^3/uL Absolute Lymphocytes 3.17 (1.2-3.4) 10^3/uL Absolute Monocytes 0.93 H (0.1-0.8) 10^3/uL Absolute Eosinophils 0.26 (0.0-0.7) 10^3/uL Absolute Basophils 0.04 (0.0-0.2) 10^3/uL Sodium 143 (136-145) mmol/L Potassium 3.7 (3.5-5.1) mmol/L Chloride 104 (98-107) mmol/L Carbon Dioxide 32.8 H (21.0-32.0) mmol/L Anion Gap 6.2 (3-11) mmol/L BUN 17 (7-18) mg/dL Creatinine 1.2 (0.70-1.30) mg/dL Est GFR (CKD-EPI 2020) 77.92 (mL/min/1.73m2) Glucose 112 H (74-106) mg/dL Calcium 9.3 (8.5-10.1) mg/dL Total Bilirubin 0.4 (0.2-1.0) mg/dL AST 21 (15-37) U/L ALT 49 (16-63) U/L Alkaline Phosphatase 90 (46-116) U/L Total Protein 8.0 (6.4-8.2) g/dL Albumin 4.2 (3.4-5.0) g/dL Urine Color Yellow (Yellow) Urine Clarity Clear (Clear) Urine pH 6.0 (5-8) Ur Specific [place] 1.010 (1.005-1.025) Urine Protein Negative (Neg-Trace) mg/dL Urine Ketones Negative (Negative) mg/dL Urine Blood Negative (Negative) Urine Nitrite Negative (Negative) Urine Bilirubin Negative (Negative) Urine Urobilinogen 0.2 (Up to 0.2) mg/dL Ur Leukocyte Esterase Negative (Negative) Urine Glucose Negative (Negative) mg/dL Intake and Output - 24 Hour Total 11/12/24 18:53 thru 11/12/24 21:40 Intake Total 50 Balance 50 Weight 104.326 kg Intake: IV 50 Falls Risk Assessment History of Falls No History 11/12/24 19:18 Contributing Factors No Factors 11/12/24 19:18 Ambulatory Aids Independent 11/12/24 19:18 Tubes/Lines None 11/12/24 19:18 Gait Evaluation No gait disturbance 11/12/24 19:18 Cognition No cognitive impairment 11/12/24 19:18 Fall Total Score 0 11/12/24 19:18 Level of Risk Standard/Low Risk 11/12/24 19:18 Problems (Last Reviewed 03/20/24 @ 11:04 by Yadi Gomez NP) Acute appendicitis (Acute) Abdominal pain (Acute) v v v v v v v v v Sending and/or Receiving Nurses: Please use comment section below to note any information pertinent to the patient hand-off not included above. Information / Comments: acute onset of sever pain. no nausea, vomiting, fever. CT shows acute appendicitis. in poor mood, bday recent, couldn't eat bday dinner d/t pain. Got: 1g tylenol, 4mg zofran, 500mg flagyl, 2g ceftriaxone, 2.5mg droperidol. Walky talky. 18g RAC. Likely OR 11/13, NPO Report received from: Flavia Davis @ [phone]
[2024-11-12] MEDS: Normal Saline Flush 10 ML SYR IVP (22:51)
[2024-11-12] MEDS: Enoxaparin 40 MG/0.4 ML SYR SC (23:02)
[2024-11-12] MEDS: Lactated Ringers 1,000 ML 75 ML IV (23:04)
[2024-11-13] MEDS: ACETAMINOPHEN 1,000 MG/100 ML BAG 400 MG IVPB ×4 (01:41→19:56)
[2024-11-13] MEDS: metroNIDAZOLE 500 MG/100 ML BAG 100 MG IVPB ×3 (05:39→22:27)
[2024-11-13 07:16] LABS: HCT 42.9 % (40.0-50.0); HGB 14.8 g/dL (13.5-17.5); MCH 29.4 pg (27.0-33.0); MCHC 34.5 % (32.0-36.0); MCV 85 fL (80-95); MPV 11.1 fL (8.0-11.0); Platelet Count 211 10^3/uL (130-400); RBC 5.04 10^6/uL (4.36-5.78); RDW 12.8 % (11.8-14.1); RDW-SD 39.3 fL; WBC 10.26 10^3/uL (4.4-10.8)
[2024-11-13 07:22] VITALS: BP 134/85; PULSE 81; RESP 18; TEMP 37; O2SAT 95
--- NOTE | 2024-11-13 08:52 | PDOC.CMIN ---
Date of service: 11/13/24 Time of Service: 08:52 Care Management Initial Assmt Initial Assessment Reason for Hospitalization: Appendicitis Functional Status/Living Situation Patient Presentation: Ha is lying in bed, he is awake and visiting with his father and aunt when CM met with him. He is pleasant and easy to engage in conversation. Per pt, he does not need surgery at this time and is planning to discharge home on PO ABX. His diet was advanced to clears this morning and he is eager to get something to drink. CM notified the desk, and provided patient with some abdias barry and he was very appreciative. CM will follow. Town of Residence: [place] Resides with: Child (Son Jayashree) and Spouse ( Gem) Significant Other/Family: Local Natural Supports: Supportive family Employment Status: Employed Instrumental Activities of Daily Living (ADLs): Independent Medications Medication Management: No Issues/Barriers identified Physical Functioning/Mobility Assistive Device: None Advance Directives Advance Directives: Do you have an Advance Directive: N 01/17/13 10:52 AD On File at [facility]: N 12/08/12 09:36 Date Asked 11/12/24 11/12/24 18:59 AD Date Reviewed COLST On File at [facility] No 03/20/24 10:02 COLST Date Scanned Code Status Resuscitation Status Full Code Portal Pt does not currently have a portal and education provided: Yes Insurance Coverage/Financial Issues Insurance: /BS of [place] of [place] Care Team Visit Care Team Role Provider Type Gemini Emanuel NP Primary Care Provider NURSE PRACTITIONER Sapphire Hassan MD Emergency Provider [facility] STAFF PHYSICIAN Eric Momin MD Admit Provider [facility] STAFF PHYSICIAN Attending Provider Discharge Potential Discharge Needs: PCP F/U Appt and Surgical F/U Appt Anticipated Barriers to Discharge: None Identified Patient/Family Education Needs: Review discharge instructions, discuss Ask Me Three Transportation: Private vehicle Plan: Anticipate, Ha will discharge home via private vehicle when medically ready for discharge. He will need outpatient follow up and discharge plan will be established. . CM will follow. Social Determinants of Health Screening Will the Patient Participate in the Screening?: Declined to provide PFSH All Active Problems (Updated 11/12/24 @ 22:30 by SID GRAY) Acute appendicitis (Acute) Abdominal pain (Acute) COPD (chronic obstructive pulmonary disease) (Chronic) GERD (gastroesophageal reflux disease) (Chronic) Chronic nasal congestion (Acute) Vasovagal episode (Acute) Obstructive sleep apnea syndrome (Chronic) 02/2022-referred for sleep clinic evaluation Diverticulitis of intestine without perforation or abscess (Acute 05/15/17) Confirmed by abd. CT on 01/29/17 Opioid dependence in remission (Acute 10/13/16) 02/2022-several years in remission, on Suboxone, followed by the [facility] Medical History Subluxation of left shoulder joint Bilateral low back pain without sciatica (07/08/15) History of tobacco use Chews does not smoke Back pain Social History Smoking/Tobacco Use Status: Current every day Tobacco Type: smokeless tobacco Tobacco: How many years used: 20 Smokeless tobacco user: chewing tobacco Quit status: not considering quitting Smoking risk assessment performed?: Yes Alcohol Intake: never Drug use: Current Sobriety Substance use type: does not use Caregiver/Support person: No Household members: spouse and children Housing: house Communication Needs: None Do you need help understanding health information?: Never Pets and animals: Yes Pets and animals: cat(s) and dog(s) Sexually active: Yes Do you think of yourself as: straight/heterosexual Current gender identity: male What is your relationship status?: How often do you talk on the phone with friends or family?: three or more times per week How often do you get together with friends or relatives?: twice per week How often do you attend confucianist or jainism services?: decline to answer Do you belong to any clubs or organized social groups?: no Panel score (0-1 are the most socially isolated patients): 2 What type of physical activity do you participate in: walking Duration: 30-45 minutes/day Frequency: 1-2 times per week Marybel/Presybeterian: No preference Special marybel needs: No Seatbelt use: sometimes Helmet use: Yes Helmet use: always Drive intox or ride w/intox team truck driver: No Do you feel safe at home: Yes Do you feel safe in your relationship?: Yes
[2024-11-13] MEDS: Buprenorphine/Naloxone 4 mg/1 mg FILM 1 EACH SL (09:19)
[2024-11-13] MEDS: Normal Saline Flush 10 ML SYR IVP ×4 (09:21→21:33)
[2024-11-13] MEDS: Lactated Ringers 1,000 ML 75 ML IV (13:28)
--- NOTE | 2024-11-13 15:02 | W.PM.HP.N ---
Date of service: 11/13/24 Time of Service: 08:00 Assessment and Plan Assessment and plan (1) Acute appendicitis: Status: Acute Assessment and plan: We discussed the diagnosis of early appendicitis without an appendicolith and the options of conservative management versus operative management. As far as his clinical course since admission, he already has improved pain level, normalized white blood cell count, and returned bowel function. He has lagging tenderness to palpation. The patient does prefer conservative management with antibiotics and he will have to stay in the hospital another 24 hours on IV antibiotics to make sure that his actual abdominal exam is improving. If that is accomplished he can be discharged home on oral antibiotics. If he is having worsening pain or worsening tenderness then I will recommend that tomorrow he have a laparoscopic appendectomy. He understands the plan and agrees. He will be allowed clear liquids today but then n.p.o. after midnight. (2) Opioid dependence in remission: Status: Acute Assessment and plan: Resume therapy today History of Present Illness Narrative: This patient presented to the emergency room with severe right lower quadrant abdominal pain, no radiation. He underwent a CT scan of the abdomen and pelvis which showed possible early acute appendicitis. He was given IV antibiotics and admitted to the hospital. His antibiotics were ceftriaxone and Flagyl. He has had a previous skin rash with penicillins. The patient has been in the hospital overnight and states that his pain is now much better. He is passing gas and does feel some hunger. He is also starting to feel some withdrawal symptoms as he is on regular daily buprenorphine. Review of Systems Narrative: 10 system review is all negative. The patient has no breathing symptoms, is urinating well, denies fever. Gastrointestinal Comments: Has regular bowel habits despite the buprenorphine. Moved his bowels yesterday. PFSH All Active Problems (Updated 11/13/24 @ 15:13 by Rebecca Arndt MD) Umbilical hernia (Acute) Acute appendicitis (Acute) Abdominal pain (Acute) COPD (chronic obstructive pulmonary disease) (Chronic) GERD (gastroesophageal reflux disease) (Chronic) Chronic nasal congestion (Acute) Vasovagal episode (Acute) Obstructive sleep apnea syndrome (Chronic) 02/2022-referred for sleep clinic evaluation Diverticulitis of intestine without perforation or abscess (Acute 05/15/17) Confirmed by abd. CT on 01/29/17 Opioid dependence in remission (Acute 10/13/16) 02/2022-several years in remission, on Suboxone, followed by the [facility] Medical History Subluxation of left shoulder joint Bilateral low back pain without sciatica (07/08/15) History of tobacco use Chews does not smoke Back pain Social History Smoking/Tobacco Use Status: Current every day Tobacco Type: smokeless tobacco Tobacco: How many years used: 20 Smokeless tobacco user: chewing tobacco Quit status: not considering quitting Smoking risk assessment performed?: Yes Alcohol Intake: never Drug use: Current Sobriety Substance use type: does not use Caregiver/Support person: No Household members: spouse and children Housing: house Communication Needs: None Do you need help understanding health information?: Never Pets and animals: Yes Pets and animals: cat(s) and dog(s) Sexually active: Yes Do you think of yourself as: straight/heterosexual Current gender identity: male What is your relationship status?: How often do you talk on the phone with friends or family?: three or more times per week How often do you get together with friends or relatives?: twice per week How often do you attend latter day or hindu services?: decline to answer Do you belong to any clubs or organized social groups?: no Panel score (0-1 are the most socially isolated patients): 2 What type of physical activity do you participate in: walking Duration: 30-45 minutes/day Frequency: 1-2 times per week Marybel/Latter Day: No preference Special marybel needs: No Seatbelt use: sometimes Helmet use: Yes Helmet use: always Drive intox or ride w/intox straight truck driver: No Do you feel safe at home: Yes Do you feel safe in your relationship?: Yes Meds Allergies and Home Medications Allergies Allergy/AdvReac Type Severity Reaction Status Date / Time Penicillins Allergy Intermediate Skin Rash Verified 11/12/24 19:07 acetaminophen (From Percocet) Allergy Other (See Verified 11/12/24 19:07 Comment) oxycodone (From Percocet) Allergy Other (See Verified 11/12/24 19:07 Comment) Nuts AdvReac Intermediate scratchy Uncoded 11/12/24 19:07 throat, per pt Home Medications ?Medication ?Instructions ?Recorded ?Confirmed ?Type albuterol sulfate 90 mcg/actuation 2 puff inhalation Q6H PRN 11/19/23 11/12/24 Rx aerosol inhaler (Proventil HFA) shortness of breath or wheezing #8.5 grams budesonide-formoterol HFA 160 2 puff inhalation Q12H #10.2 grams 12/27/23 11/12/24 Rx mcg-4.5 mcg/actuation aerosol inhaler (Symbicort) buprenorphine 4 mg-naloxone 1 mg 1 film sublingual DAILY 12/29/23 11/12/24 History sublingual film omeprazole 40 mg capsule,delayed 40 mg PO DAILY #90 caps 03/27/24 11/12/24 Rx release Exam Narrative Exam Narrative: Alert oriented and comfortable patient lying in bed, no acute distress Const General: cooperative and healthy appearing Nutritional Appearance: average body habitus (With abdominal obesity) [facility] Head: normal to inspection Ears: hearing grossly normal bilaterally Mouth: oral mucosae normal Resp Auscultation: clear to auscultation bilaterally Cardio Rate: regular rate and not tachycardic Rhythm: regular rhythm Heart Sounds: S1 normal, S2 normal and no murmurs GI Inspection: normal to inspection, obesity (Moderate) and visible herniation (Umbilical, nonreducible) Palpation: soft and tender (Right lower quadrant) other (No flank tenderness) Auscultation: normal bowel sounds Skin General skin exam: no rashes or lesions noted and dry skin Neuro General: patient alert, patient awake, patient oriented x3 and moves all extremities Cranial Nerves: PERRL Cognition: normal cognition Speech: speech normal Motor: muscle tone normal throughout Extrem General: normal to inspection and no edema Psych Mental Status: mental status grossly normal Speech and Movement: speech and movement normal Mood: congruent mood Affect: normal affect Attitude: cooperative Thought Process: normal Thought Content: normal Insight: insight good Judgment: judgment good Results Imaging Abdomen CT scan report/results: report reviewed and image reviewed (Very mild increased enhancement, 7 mm size appendix, no appendicolith) Labs 11/13/24 06:07 11/12/24 19:14 Labs: Laboratory Results - last 24 hr 11/12/24 11/12/24 11/13/24 19:14 20:10 06:07 WBC 11.71 H 10.26 RBC 5.44 5.04 Hgb 16.0 14.8 Hct 47.8 42.9 MCV 88 85 MCH 29.4 29.4 MCHC 33.5 34.5 RDW 12.7 12.8 Plt Count 228 211 MPV 10.8 11.1 H Immature Gran % 0.3 Neutrophils % 62.2 Lymphocytes % 27.1 Monocytes % 7.9 Eosinophils % 2.2 Basophils % 0.3 Nucleated RBC % 0.0 Absolute Neutrophils 7.28 H Absolute Lymphocytes 3.17 Absolute Monocytes 0.93 H Absolute Eosinophils 0.26 Absolute Basophils 0.04 Sodium 143 Potassium 3.7 Chloride 104 Carbon Dioxide 32.8 H Anion Gap 6.2 BUN 17 Creatinine 1.2 Est GFR (CKD-EPI 2020) 77.92 Glucose 112 H Calcium 9.3 Total Bilirubin 0.4 AST 21 ALT 49 Alkaline Phosphatase 90 Total Protein 8.0 Albumin 4.2 Urine Color Yellow Urine Clarity Clear Urine pH 6.0 Ur Specific [place] 1.010 Urine Protein Negative Urine Ketones Negative Urine Blood Negative Urine Nitrite Negative Urine Bilirubin Negative Urine Urobilinogen 0.2 Ur Leukocyte Esterase Negative Urine Glucose Negative Last Vital Signs Temp 37.0 C 11/13/24 07:22 Pulse 81 11/13/24 07:22 Resp 18 11/13/24 07:22 BP 134/85 11/13/24 07:22 Pulse Ox 95 11/13/24 07:22 Time Spent Time spent with Patient: 40-54 minutes Time was spent: preparing to see the patient(eg.review tests), obtaining and/or reviewing separately otained hiistory, indepentently interpreting results and counseling the patient
[2024-11-13 15:17] VITALS: BP 121/71; PULSE 81; RESP 18; TEMP 36.5; O2SAT 93
[2024-11-13 19:02] VITALS: BP 146/90; PULSE 86; RESP 18; TEMP 36.5; O2SAT 96
[2024-11-13] MEDS: cefTRIAXone 2 GM/50 ML BAG IVPB (21:32)
[2024-11-13] MEDS: Enoxaparin 40 MG/0.4 ML SYR SC (21:32)
[2024-11-14] MEDS: ACETAMINOPHEN 1,000 MG/100 ML BAG 400 MG IVPB ×2 (02:38→08:21)
[2024-11-14] MEDS: metroNIDAZOLE 500 MG/100 ML BAG 100 MG IVPB (06:08)
[2024-11-14 07:22] LABS: HCT 43.9 % (40.0-50.0); MCH 29.3 pg (27.0-33.0); MCHC 34.2 % (32.0-36.0); MCV 86 fL (80-95); MPV 10.6 fL (8.0-11.0); Platelet Count 208 10^3/uL (130-400); RBC 5.12 10^6/uL (4.36-5.78); RDW 12.6 % (11.8-14.1); RDW-SD 39.4 fL; WBC 5.71 10^3/uL (4.4-10.8)
[2024-11-14 07:38] VITALS: BP 125/85; PULSE 88; RESP 16; TEMP 36.8; O2SAT 96
[2024-11-14 07:56] LABS: Anion Gap 7.2 mmol/L (3-11); BUN 14 mg/dL (7-18); CO2 29.8 mmol/L (21.0-32.0); CREATININE 1.1 mg/dL (0.70-1.30); Calcium 9.1 mg/dL (8.5-10.1); Chloride 106 mmol/L (98-107); Estimated GFR 86.49 (mL/min/1.73m2); Glucose 117 mg/dL (74-106); Potassium 3.8 mmol/L (3.5-5.1); Sodium 143 mmol/L (136-145)
[2024-11-14] MEDS: Buprenorphine/Naloxone 4 mg/1 mg FILM 1 EACH SL (08:20)
[2024-11-14] MEDS: Normal Saline Flush 10 ML SYR IVP (08:21)
--- NOTE | 2024-11-14 10:19 | W.PM.DS.N ---
Date of service: 11/14/24 Time of Service: 10:20 DS: Diagnosis Discharge Diagnosis (1) Acute appendicitis: Status: Acute Asessment and Plan: Discharge home with enteral antibiotics and outpatient follow-up (2) Opioid dependence in remission: Status: Acute Discharge Plan Disposition Patient Disposition: Home Condition: Good Discharge Details Reason For Visit: Appendicitis Admit Date/Time: 11/12/24 20:57 Admit Provider: Eric Momin Attending Provider: Eric Momin Primary Care Provider: [facility] Course Hospital Course: Ha is 39 years old. He came to the emergency department with acute onset of right lower quadrant abdominal pain. He had white blood cell count of 11.7, and underwent a CT scan that demonstrated some mild periappendiceal inflammation raising the concern for appendicitis. He was admitted to the hospital started on antibiotics. Symptoms improved over the next 24 hours, and his leukocytosis resolved. Vital signs were reassuring. His diet was advanced, and he tolerated that with no change in his abdominal symptoms. He remained afebrile, with a normal white blood cell count for 24 hours after that. He was discharged home with outpatient antibiotics and office follow-up appointment. Home Meds and New Rx's Prescriptions: New ciprofloxacin HCl 500 mg tablet 500 mg PO BID Qty: 14 0RF metronidazole 500 mg tablet 500 mg PO BID Qty: 14 0RF Continued albuterol sulfate [Proventil HFA] 90 mcg/actuation HFA aerosol inhaler 2 puff inhalation Q6H PRN (Reason: shortness of breath or wheezing) Qty: 8.5 0RF budesonide-formoterol [Symbicort] 160-4.5 mcg/actuation HFA aerosol inhaler 2 puff inhalation Q12H Qty: 10.2 3RF omeprazole 40 mg capsule,delayed release(DR/EC) 40 mg PO DAILY Qty: 90 1RF buprenorphine-naloxone 4-1 mg film 1 film sublingual DAILY Discharge Instructions Additional Instructions: You have been prescribed 2 antibiotics to help complete antibiotic therapy for mild early appendicitis. Please take these as instructed. We have arranged a follow-up office visit on December 25. Please take your temperature once in the morning, and once in the evening, as well as any point through the day if you feel at all febrile. Notify the office if your temperature exceeds 100 degrees. If it is after hours, call the hospital and page the surgeon on-call. If you develop any significant nausea, vomiting, or any intolerance of diet, please notify the office. If you have any questions at all, please feel free to call at any point. Referrals: Markos Chan MD [ [facility] STAFF PHYSICIAN] - (November 25 at 2:15 PM) Activity:: Activity as Tolerated Equipment/Supplies:: No Equipment Needed Diet:: As Tolerated DS: Summary Time Spent with Patient providing and/or coordinating discharge services: Less than 30 minutes Status at Discharge Functional status at discharge: independent ambulation Overall status at discharge: patient is progressing back to baseline Mental Status: mental status grossly normal Speech and Movement: speech and movement normal Mood: congruent mood Affect: normal affect Quality:SDOH Health Related Social Needs: No Data to Display Exam Psych Mental Status: mental status grossly normal Speech and Movement: speech and movement normal Mood: congruent mood Affect: normal affect DS: Data Vitals/I&O Vitals and I&O: Vital Signs Temperature 98.2 F 11/14/24 07:38 Temperature Source Temporal Artery Scan 11/14/24 07:38 Pulse 88 11/14/24 07:38 Pulse Rhythm Regular 11/12/24 22:31 Respiratory Rate 16 11/14/24 07:38 Respiratory Effort Normal, Non-Labored 11/12/24 22:31 Respiratory Depth Normal 11/12/24 22:31 Respiratory Pattern Normal 11/12/24 22:31 Blood Pressure 125/85 11/14/24 07:38 Blood Pressure Position Sitting 11/12/24 19:04 Pulse Oximetry 96 11/14/24 07:38 Oxygen Delivery Method Room Air 11/14/24 07:38 Oxygen Flow Rate 0 11/14/24 07:38 Pain Level 0 11/14/24 09:20 Intake & Output 11/13/24 11/13/24 11/14/24 11:59 23:59 11:59 Intake Total 1959 100 / 100 Balance 1959 100 / 100 Intake: IV 1959 100 / 100 Other: Comment un measured voided in toilet voided in toilet Stool Size Small Stool Characteristics Soft Data Completed and Pending Labs on day of discharge: Labs from last 24 hours 11/14/24 07:09 WBC 5.71 RBC 5.12 Hgb 15.0 Hct 43.9 MCV 86 MCH 29.3 MCHC 34.2 RDW 12.6 Plt Count 208 MPV 10.6 Sodium 143 Potassium 3.8 Chloride 106 Carbon Dioxide 29.8 Anion Gap 7.2 BUN 14 Creatinine 1.1 Est GFR (CKD-EPI 2020) 86.49 Glucose 117 H Calcium 9.1 PFSH All Active Problems (Updated 11/14/24 @ 11:00 by Eric Moimn MD) Umbilical hernia (Acute) Acute appendicitis (Acute) Abdominal pain (Acute) COPD (chronic obstructive pulmonary disease) (Chronic) GERD (gastroesophageal reflux disease) (Chronic) Chronic nasal congestion (Acute) Vasovagal episode (Acute) Obstructive sleep apnea syndrome (Chronic) 02/2022-referred for sleep clinic evaluation Diverticulitis of intestine without perforation or abscess (Acute 05/15/17) Confirmed by abd. CT on 01/29/17 Opioid dependence in remission (Acute 10/13/16) 02/2022-several years in remission, on Suboxone, followed by the [facility] Medical History Subluxation of left shoulder joint Bilateral low back pain without sciatica (07/08/15) History of tobacco use Chews does not smoke Back pain Social History Smoking/Tobacco Use Status: Current every day Tobacco Type: smokeless tobacco Tobacco: How many years used: 20 Smokeless tobacco user: chewing tobacco Quit status: not considering quitting Smoking risk assessment performed?: Yes Alcohol Intake: never Drug use: Current Sobriety Substance use type: does not use Caregiver/Support person: No Household members: spouse and children Housing: house Communication Needs: None Do you need help understanding health information?: Never Pets and animals: Yes Pets and animals: cat(s) and dog(s) Sexually active: Yes Do you think of yourself as: straight/heterosexual Current gender identity: male What is your relationship status?: How often do you talk on the phone with friends or family?: three or more times per week How often do you get together with friends or relatives?: twice per week How often do you attend bahai or baptism services?: decline to answer Do you belong to any clubs or organized social groups?: no Panel score (0-1 are the most socially isolated patients): 2 What type of physical activity do you participate in: walking Duration: 30-45 minutes/day Frequency: 1-2 times per week Marybel/Sabianist: No preference Special marybel needs: No Seatbelt use: sometimes Helmet use: Yes Helmet use: always Drive intox or ride w/intox city driver: No Do you feel safe at home: Yes Do you feel safe in your relationship?: Yes Time Spent with Patient Time Spent with Patient: <45 minutes Time was spent: referring, communicating with other health urgent care nurse practitioner and care coordination
--- NOTE | 2024-11-14 12:25 | PDOC.CMDIS ---
Date of service: 11/14/24 Time of Service: 12:26 LACE Index Scoring Tool Questions: Length of Stay (in days): 2 Was the patient admitted via the E.D.?: Yes Comorbidities: Chronic Pulmonary Disease E.D. Visits: 1 Answers: Total Score: 8 Risk of Readmission: Low Risk Care Management Discharge Plan Reason for Hospitalization: appendicitis - no surgery Discharge Plan: Ha was discharged home today with no new services. He will f/u with his PCP on 11/18 and the surgeon on 11/25 and continue per his plan of care. He was transported home by his . Patient/Family Education Needs: Review of discharge instructions, activity, limitations and discuss ask me 3. SDOH Health Related Social Needs: No Data to Display
== END 2024-11-14 11:56 | disposition home or self-care (01) ==
LOC: ER 21:08 → MS 22:30
PROVIDERS: Surgery; Admitting Provider Surgery; Emergency Provider Emergency Medicine; PCP Nurse Practitioner Family; Visit Provider Surgery
DX: K35.80 Unspecified acute appendicitis (principal); F11.21 Opioid dependence, in remission; Z79.899 Other long term (current) drug therapy; J44.9 Chronic obstructive pulmonary disease, unspecified; K21.9 Gastro-esophageal reflux disease without esophagitis; G47.33 Obstructive sleep apnea (adult) (pediatric); F17.220 Nicotine dependence, chewing tobacco, uncomplicated
CPT/HCPCS: 36415; 80048; 80053; 85027; 96365; 96366; 96367; 96372; 96375; 99285; J1650; 74177; 81003; 85025; G0378; J0131; J0696; J1790; J1836; J2405; J3490

== ENCOUNTER 2024-12-05 15:10 | Emergency (ER) | payer BC, SELFPAY ==
[2024-12-05] VITALS (14 sets, daily range): BP systolic 122–137; BP diastolic 81–89; PULSE 75–90; RESP 18; TEMP 36.7; O2SAT 93–97
[2024-12-05 15:45] LABS: Abs Immature Grans 0.01 10^3/uL (0.0-0.06); Absolute Basophil Count 0.04 10^3/uL (0.0-0.2); Absolute Eosinophil Count 0.12 10^3/uL (0.0-0.7); Absolute Lymphocyte Count 1.85 10^3/uL (1.2-3.4); Absolute Monocyte Count 0.49 10^3/uL (0.1-0.8); Absolute Neutrophil Count 3.84 10^3/uL (1.2-6.7); Basophils % 0.6 %; Eosinophils % 1.9 %; HGB 15.4 g/dL (13.5-17.5); Immature Grans % 0.2 %; Lymphocytes % 29.1 %; MCH 28.7 pg (27.0-33.0); MCHC 32.8 % (32.0-36.0); MCV 88 fL (80-95); MPV 10.7 fL (8.0-11.0); Monocytes % 7.7 %; Neutrophils % 60.5 %; Platelet Count 219 10^3/uL (130-400); RBC 5.37 10^6/uL (4.36-5.78); RDW 12.4 % (11.8-14.1); RDW-SD 40.1 fL; WBC 6.35 10^3/uL (4.4-10.8)
--- NOTE | 2024-12-05 15:51 | W.ED.GENAD ---
Discharge Plan Disposition Patient Disposition: Home Condition: Stable Discharge Details Clinical Impression: Abdominal pain Primary Care Provider: Gemini Emanuel ED Provider: Anibal Arndt Home Meds and New Rx's Prescriptions: New omeprazole 20 mg capsule,delayed release(DR/EC) 20 mg PO BID Qty: 60 0RF Continued albuterol sulfate [Proventil HFA] 90 mcg/actuation HFA aerosol inhaler 2 puff inhalation Q6H PRN (Reason: shortness of breath or wheezing) Qty: 8.5 0RF buprenorphine-naloxone 4-1 mg film 1 film sublingual DAILY No Action budesonide-formoterol [Symbicort] 160-4.5 mcg/actuation HFA aerosol inhaler 2 puff inhalation Q12H Qty: 10.2 3RF Discharge Instructions Instructions: Abdominal Pain, Adult ED Additional Instructions: Eat small meals more often to help with abominal pain. Keep a diary about your pain and the foods you eat. Then you can avoid those that bother your stomach. Avoid spicy foods. Avoid beer, wine, and mixed drinks. Try to learn ways to manage stress. Stress may cause the acid levels in your stomach to rise. Please follow-up with your primary care physician. Return to the emergency department immediately for any worsening or new concerning symptoms. Discharge Data Discharge Date/Time-TO BE ENTERED AT DEPARTURE: 12/05/24 16:42 HPI General Mode of arrival: ambulatory. Date/Time Provider Initiated Documentation: 12/05/24 15:18. Limitations to Documentation: no limitations. Information obtained by: patient. HPI Narrative: HISTORY OF PRESENT ILLNESS The patient presents for evaluation of abdominal pain. Diagnosed with appendicitis on 11/12/2024, confirmed via CT scan. Managed with antibiotics, pain alleviated. Now experiences intermittent pain during meals, severe enough to disrupt eating, persisting for 3 days. Pain localized to upper abdomen epigastric area. Does not feel like pain of appendicitis. No history of similar symptoms, vomiting, or diarrhea. Dietary modifications recently include increased salad intake, avoidance of bread and soda. Reports occasional testicular pain, no penile discharge. Related Data Home Medications ?Medication ?Instructions ?Recorded ?Confirmed albuterol sulfate 90 mcg/actuation 2 puff inhalation Q6H PRN 11/19/23 12/08/24 aerosol inhaler (Proventil HFA) shortness of breath or wheezing #8.5 grams budesonide-formoterol HFA 160 2 puff inhalation Q12H #10.2 grams 12/27/23 12/08/24 mcg-4.5 mcg/actuation aerosol inhaler (Symbicort) buprenorphine 4 mg-naloxone 1 mg 1 film sublingual DAILY 12/29/23 12/08/24 sublingual film omeprazole 20 mg capsule,delayed 20 mg PO BID #60 caps 12/05/24 12/08/24 release Previous Rx's ?Medication ?Instructions ?Recorded albuterol sulfate 90 mcg/actuation 2 puff inhalation Q6H PRN 11/19/23 aerosol inhaler (Proventil HFA) shortness of breath or wheezing #8.5 grams budesonide-formoterol HFA 160 2 puff inhalation Q12H #10.2 grams 12/27/23 mcg-4.5 mcg/actuation aerosol inhaler (Symbicort) omeprazole 20 mg capsule,delayed 20 mg PO BID #60 caps 12/05/24 release Allergies Allergy/AdvReac Type Severity Reaction Status Date / Time Penicillins Allergy Intermediate Skin Rash Verified 12/08/24 11:27 acetaminophen (From Percocet) Allergy Other (See Verified 12/08/24 11:27 Comment) oxycodone (From Percocet) Allergy Other (See Verified 12/08/24 11:27 Comment) Nuts AdvReac Intermediate scratchy Uncoded 12/08/24 11:27 throat, per pt General Stated Complaint: Abd Prob STEFAN: 3 Review of Systems All systems reviewed & are unremarkable except as noted in HPI and below Exam Narrative Exam Narrative: PHYSICAL EXAM General Appearance: Normal. Vital signs: Within normal limits. HEENT: Within normal limits. Respiratory: Lungs clear bilaterally. Cardiovascular: Heart sounds normal, regular rate and rhythm. Gastrointestinal: Soft. Normal bowel sounds. Mild discomfort upon abdominal palpation epigastric area, no rebound tenderness. Genitourinary: Male: Penis and scrotum normal. Skin: Warm and dry, no rash. Neurological: Normal. Course Vital Signs Vital signs: Vital Signs Temperature 36.7 C 12/05/24 15:14 Pulse 75 12/05/24 15:14 Respiratory Rate 18 12/05/24 15:14 Blood Pressure 125/81 12/05/24 15:14 Pulse Oximetry 97 12/05/24 15:14 Temperature 36.7 C 12/05/24 15:17 Temperature Source Oral 12/05/24 15:17 Pulse 90 12/05/24 15:17 Respiratory Rate 18 12/05/24 15:17 Blood Pressure 125/81 12/05/24 15:17 Pulse Oximetry 97 12/05/24 15:17 Oxygen Delivery Method Room Air 12/05/24 15:17 Pain Level 3 12/05/24 15:17 Lab/Test Results Lab/Test Results: Laboratory Tests Range/Units 12/05/24 15:20 WBC (4.4-10.8) 10^3/uL 6.35 RBC (4.36-5.78) 10^6/uL 5.37 Hgb (13.5-17.5) g/dL 15.4 Hct (40.0-50.0) % 47.0 MCV (80-95) fL 88 MCH (27.0-33.0) pg 28.7 MCHC (32.0-36.0) % 32.8 RDW (11.8-14.1) % 12.4 Plt Count (130-400) 10^3/uL 219 MPV (8.0-11.0) fL 10.7 Immature Gran % % 0.2 Neutrophils % % 60.5 Lymphocytes % % 29.1 Monocytes % % 7.7 Eosinophils % % 1.9 Basophils % % 0.6 Nucleated RBC % (0.0-0.3) % 0.0 Absolute Neutrophils (1.2-6.7) 10^3/uL 3.84 Absolute Lymphocytes (1.2-3.4) 10^3/uL 1.85 Absolute Monocytes (0.1-0.8) 10^3/uL 0.49 Absolute Eosinophils (0.0-0.7) 10^3/uL 0.12 Absolute Basophils (0.0-0.2) 10^3/uL 0.04 Medical Decision Making ASSESSMENT AND PLAN Initial Assessment: Patient presents with abdominal pain with eating over the past 3 days. History of appendicitis treated with antibiotics. No nausea, vomiting, or diarrhea. No bright red blood per rectum or melena. Differential Diagnosis: - Gastritis or inflammation of the stomach lining: Considered due to recent antibiotic use and dietary changes. - Cholelithiasis: Ultrasound to evaluate gallbladder for signs of stones. ED Course: - Abdomen examined, no rebound tenderness. No peritoneal findings. - Testicular exam normal, no discharge, no swelling or tenderness - I reviewed prior CT of the abdomen pelvis from 11/12/2024: The appendix is mildly dilated compared to the prior exam and there is some surrounding stranding in the fat, suspicious for early appendicitis. Scattered diverticulosis. No evidence of diverticulitis. - POCUS performed to evaluate gallbladder -no signs of acute appendicitis. - Pepcid IV - Labs reviewed: LFTs normal. Lipase normal. No leukocytosis. - I spoke with Dr. Emery, on-call general surgeon, discussed ED presentation course, she does not recommend further diagnostics at this time and will arrange for follow-up call early next week. - Usual and customary discharge instructions were reviewed with the patient. I recommended patient return immediately should he have worsening or new concerning symptoms. Final Assessment: Abdominal pain likely due to gastritis. No peritoneal findings. Clinical Impression: - Abdominal pain - Testicular pain Disposition: - Follow-Up with pcp and general surgery MDM Components Evaluation: - Number of Differential Diagnoses or Management Options: Gastritis, cholelithiasis. - Amount and Complexity of Data Reviewed: Ultrasound, previous CT scan. - Risk of Complication and Morbidity or Mortality: Moderate risk due to potential gallstones and inflammation. This document was written with the assistance of VALDO James. The patient consented to its use. Lab Data Lab results reviewed: Yes I reviewed the patient's lab results. Labs: Laboratory Tests Range/Units 12/05/24 15:20 WBC (4.4-10.8) 10^3/uL 6.35 RBC (4.36-5.78) 10^6/uL 5.37 Hgb (13.5-17.5) g/dL 15.4 Hct (40.0-50.0) % 47.0 MCV (80-95) fL 88 MCH (27.0-33.0) pg 28.7 MCHC (32.0-36.0) % 32.8 RDW (11.8-14.1) % 12.4 Plt Count (130-400) 10^3/uL 219 MPV (8.0-11.0) fL 10.7 Immature Gran % % 0.2 Neutrophils % % 60.5 Lymphocytes % % 29.1 Monocytes % % 7.7 Eosinophils % % 1.9 Basophils % % 0.6 Nucleated RBC % (0.0-0.3) % 0.0 Absolute Neutrophils (1.2-6.7) 10^3/uL 3.84 Absolute Lymphocytes (1.2-3.4) 10^3/uL 1.85 Absolute Monocytes (0.1-0.8) 10^3/uL 0.49 Absolute Eosinophils (0.0-0.7) 10^3/uL 0.12 Absolute Basophils (0.0-0.2) 10^3/uL 0.04 Sodium (136-145) mmol/L 139 Potassium (3.5-5.1) mmol/L 3.9 Chloride (98-107) mmol/L 103 Carbon Dioxide (21.0-32.0) mmol/L 30.9 Anion Gap (3-11) mmol/L 5.1 BUN (7-18) mg/dL 13 Creatinine (0.70-1.30) mg/dL 1.1 Est GFR (CKD-EPI 2020) (mL/min/1.73m2) 86.49 Glucose (74-106) mg/dL 103 Calcium (8.5-10.1) mg/dL 9.4 Total Bilirubin (0.2-1.0) mg/dL 0.6 AST (15-37) U/L 22 ALT (16-63) U/L 42 Alkaline Phosphatase (46-116) U/L 63 Total Protein (6.4-8.2) g/dL 8.0 Albumin (3.4-5.0) g/dL 4.3 Lipase (<78) U/L 20 Quality:SDOH Health Related Social Needs: No Data to Display PFSH All Active Problems (Updated 12/05/24 @ 16:28 by Anibal Arndt MD) Abdominal pain (Acute) Umbilical hernia (Acute) Acute appendicitis (Acute) COPD (chronic obstructive pulmonary disease) (Chronic) GERD (gastroesophageal reflux disease) (Chronic) Chronic nasal congestion (Acute) Vasovagal episode (Acute) Obstructive sleep apnea syndrome (Chronic) 02/2022-referred for sleep clinic evaluation Diverticulitis of intestine without perforation or abscess (Acute 05/15/17) Confirmed by abd. CT on 01/29/17 Opioid dependence in remission (Acute 10/13/16) 02/2022-several years in remission, on Suboxone, followed by the [facility] Medical History Subluxation of left shoulder joint Bilateral low back pain without sciatica (07/08/15) History of tobacco use Chews does not smoke Back pain Social History Smoking/Tobacco Use Status: Current every day Tobacco Type: smokeless tobacco Tobacco: How many years used: 20 Smokeless tobacco user: chewing tobacco Quit status: not considering quitting Smoking risk assessment performed?: Yes Alcohol Intake: never Drug use: Current Sobriety Substance use type: does not use Caregiver/Support person: No Household members: spouse and children Housing: house Communication Needs: None Do you need help understanding health information?: Never Pets and animals: Yes Pets and animals: cat(s) and dog(s) Sexually active: Yes Do you think of yourself as: straight/heterosexual Current gender identity: male What is your relationship status?: How often do you talk on the phone with friends or family?: three or more times per week How often do you get together with friends or relatives?: twice per week How often do you attend taoism or jain services?: decline to answer Do you belong to any clubs or organized social groups?: no Panel score (0-1 are the most socially isolated patients): 2 What type of physical activity do you participate in: walking Duration: 30-45 minutes/day Frequency: 1-2 times per week Marybel/Restorationist: No preference Special marybel needs: No Seatbelt use: sometimes Helmet use: Yes Helmet use: always Drive intox or ride w/intox four horse hitch driver: No Do you feel safe at home: Yes Do you feel safe in your relationship?: Yes PAWSS Have you Been Recently Intoxicated or Drunk Within the Last 30 days?: No Have you Ever Experienced Previous Episodes of Alcohol Withdrawal?: No Have you ever Experienced Withdrawal Seizures?: No Have you ever Experienced Delirium Tremens(DT)s?: No Have you ever undergone Alcohol Rehabilitation Treatment (i.e, inpt ot outpatient treatment programs)?: No Have you ever Experienced Blackouts?: No Have you ever Combined Alcohol with other Downers within the last 90 days?: No Have you ever Combined Alcohol with any other Substance of Abuse during the last 90 days?: No Positive Blood Alcohol level on Presentation? [PCS.BAL]: No Evidence of Increased Autonomic Activity (i.e. HR>120, tremor, sweating, agitation, nausea)?: No Result: 0
[2024-12-05 16:01] LABS: ALT 42 U/L (16-63); AST 22 U/L (15-37); Albumin 4.3 g/dL (3.4-5.0); Alkaline Phosphatase 63 U/L (46-116); Anion Gap 5.1 mmol/L (3-11); BUN 13 mg/dL (7-18); Bilirubin, Total 0.6 mg/dL (0.2-1.0); CO2 30.9 mmol/L (21.0-32.0); CREATININE 1.1 mg/dL (0.70-1.30); Calcium 9.4 mg/dL (8.5-10.1); Chloride 103 mmol/L (98-107); Estimated GFR 86.49 (mL/min/1.73m2); Glucose 103 mg/dL (74-106); Lipase 20 U/L (<78); Potassium 3.9 mmol/L (3.5-5.1); Sodium 139 mmol/L (136-145)
[2024-12-05] MEDS: FAMOTIDINE 20 MG in Normal Saline 100 ML 400 MG IVPB (16:04)
== END 2024-12-05 16:42 | disposition home or self-care (01) ==
PROVIDERS: Emergency Provider Student in an Organized Health Care Education/Training Program; PCP Nurse Practitioner Family
DX: R10.10 Upper abdominal pain, unspecified (principal)
CPT/HCPCS: 99284 ×2; 36415; 80053; 83690; 96365; 85025

== ENCOUNTER 2025-02-26 16:13 | Outpatient (CLI) | payer BC, SELFPAY ==
[2025-02-26 16:41] LABS: Abs Immature Grans 0.02 10^3/uL (0.0-0.06); HCT 46.7 % (40.0-50.0); HGB 15.6 g/dL (13.5-17.5); Immature Grans % 0.2 %; MCH 28.8 pg (27.0-33.0); MCHC 33.4 % (32.0-36.0); MCV 86 fL (80-95); MPV 10.7 fL (8.0-11.0); Platelet Count 206 10^3/uL (130-400); RBC 5.42 10^6/uL (4.36-5.78); RDW 12.3 % (11.8-14.1); RDW-SD 38.7 fL; WBC 8.02 10^3/uL (4.4-10.8)
[2025-02-26 17:19] LABS: ALT 37 U/L (16-63); AST 21 U/L (15-37); Albumin 4.6 g/dL (3.4-5.0); Alkaline Phosphatase 70 U/L (46-116); Anion Gap 6.7 mmol/L (3-11); BUN 19 mg/dL (7-18); Bilirubin, Total 0.7 mg/dL (0.2-1.0); CO2 32.3 mmol/L (21.0-32.0); Calcium 9.5 mg/dL (8.5-10.1); Chloride 98 mmol/L (98-107); Estimated GFR 86.49 (mL/min/1.73m2); Glucose 83 mg/dL (74-106); Potassium 4.1 mmol/L (3.5-5.1); Sodium 137 mmol/L (136-145); Total Protein 8.1 g/dL (6.4-8.2)
[2025-02-26 17:49] LABS: TSH (W/Ref FT4) 2.42 uIU/mL (0.36-3.74)
[2025-02-27 06:29] LABS: Lipase 23 U/L (<78)
== END 2025-02-26 16:14 | disposition home or self-care (01) ==
LOC: LBO 16:13
PROVIDERS: PCP Nurse Practitioner Family; Visit Provider Family Medicine
DX: K42.9 Umbilical hernia without obstruction or gangrene (principal); I10 Essential (primary) hypertension; R79.89 Other specified abnormal findings of blood chemistry
CPT/HCPCS: 36415; 80053; 83690; 84443; 85025

== ENCOUNTER 2025-02-28 08:55 | Emergency (ER) | payer BC, SELFPAY ==
[2025-02-28] VITALS (27 sets, daily range): BP systolic 113–139; BP diastolic 71–91; PULSE 66–104; RESP 6–20; TEMP 35.8; O2SAT 90–100
--- NOTE | 2025-02-28 08:45 | RT.EKG_ITS ---
APPROVED REPORT Exam: Resting ECG Reason for Exam: dizziness/arms numb Patient Location: E HR:81 bpm ECG Measurements Heart Rate 81 AXIS [place] 136 P 43 QRSd 98 QRS 77 QT 397 T 33 QTc 464 Conclusion Sinus rhythm 81 normal axis PVC no stemi
--- NOTE | 2025-02-28 09:00 | DI.CT_ITS ---
Exam(s) CT THORAX ABD/PEL CTA EXAM: CT THORAX ABD/PEL CTA CLINICAL HISTORY: concern for dissection. TECHNIQUE: Imaging Protocol: Axial computed tomography images with coronal and sagittal reformatted images were created and reviewed CONTRAST MATERIAL: Intravenous: Omnipaque 350 Contrast volume:100 ml Oral: None COMPARISON: CT CT ABDOMEN PELVIS W from 02/26/2025 FINDINGS: CHEST: AORTA: There is no aneurysmal dilatation of the ascending thoracic aorta and there is no evidence of aortic dissection. There is no significant atherosclerotic disease in the thoracic aorta. There is no evidence of abdominal aortic aneurysm nor dissection and the common and external iliac arteries as well as internal iliac arteries and common femorals are also unremarkable without evidence of aneurysm, dissection, nor significant atherosclerotic narrowing. There is also no stenosis at the origin of the celiac, SMA, and BRENDON arteries nor of the bilateral renal arteries. LUNGS: No obvious pulmonary emboli. No infiltrates nor pleural effusions. No lung masses.. MEDIASTINUM: There is no hilar nor mediastinal adenopathy. There is a small hiatal hernia. CARDIAC: Heart size normal. No evidence of aortic dissection nor pericardial effusion. ABDOMEN: ABDOMINAL AORTA: See above/unremarkable There is no ascites. LIVER: There are no focal hepatic lesions nor dilatation of intrahepatic ducts. GALLBLADDER/BILIARY: No obvious gallbladder pathology. CBD is not dilated. PANCREAS: No evidence of pancreatic mass nor dilatation of the pancreatic duct. SPLEEN: Spleen is not enlarged. There are no intrasplenic lesions. Splenic and portal veins are patent. ADRENALS: There are no significant adrenal masses. KIDNEYS: No cysts evident. No calculi nor hydronephrosis. No solid renal masses. ABDOMINAL AORTA: The abdominal aorta is not enlarged. LYMPH NODES: There is no retroperitoneal nor para-aortic adenopathy. No obvious mesenteric masses. ABDOMINAL WALL: There is an anterior abdominal wall midline umbilical fat only containing hernia. No bowel loops therein. GI: There is no evidence of bowel obstruction, free air, nor abscess. PELVIS: LYMPH NODES: There is no intrapelvic nor inguinal adenopathy. GI: There are small calcification within the appendix but no evidence of obvious appendicitis.There are sigmoid diverticuli without evidence of obvious acute diverticulitis. URINARY BLADDER: No calculi nor masses evident REPRODUCTIVE: Prostate size normal. Pelvic ureters are not dilated. OSSEOUS: No significant osseous lesions. No fractures nor listhesis but there is chronic degenerative disc disease at L5- S1 level. IMPRESSION: 1. No evidence of aortic dissection, as per request. No evidence of pericardial effusion. Normal heart size. No aneurysms. 2. No acute pulmonary findings 3. No acute findings in the abdomen and pelvis. There is a midline fat only containing umbilical hernia noted. The hernia sac does not contain bowel loops. There is no bowel obstruction. Preliminary virtual Radiology report was reviewed. RADIATION DOSE DELIVERED: 1,128.22mGy.cm Total DLP DATA REPOSITORY: All CT scans at this facility are submitted to the National Radiology Data Registry (NRDR) Dose Index Registry (DIR) with the [employer] (A[employer]). RADIATION OPTIMIZATION: All CT scans at this facility use at least one of these dose optimization techniques: automated exposure control; mA and/or kV adjustment per patient size (includes targeted exams where dose is matched to clinical indication); or iterative reconstruction.
[2025-02-28 09:17] LABS: Abs Immature Grans 0.02 10^3/uL (0.0-0.06); HCT 47.5 % (40.0-50.0); HGB 15.9 g/dL (13.5-17.5); Immature Grans % 0.2 %; MCH 28.4 pg (27.0-33.0); MCHC 33.5 % (32.0-36.0); MCV 85 fL (80-95); MPV 10.6 fL (8.0-11.0); Platelet Count 255 10^3/uL (130-400); RBC 5.60 10^6/uL (4.36-5.78); RDW 12.2 % (11.8-14.1); RDW-SD 37.4 fL; WBC 8.59 10^3/uL (4.4-10.8)
[2025-02-28] MEDS: LORazepam 20 MG/10 ML VIAL IVP (09:17)
[2025-02-28 09:32] LABS: INR 1.0 (0.9-1.1); Prothrombin Time 10.0 sec (9.1-11.1)
[2025-02-28 09:39] LABS: ALT 35 U/L (16-63); AST 19 U/L (15-37); Albumin 4.6 g/dL (3.4-5.0); Alkaline Phosphatase 76 U/L (46-116); Anion Gap 14.3 mmol/L (3-11); BUN 18 mg/dL (7-18); Bilirubin, Total 0.5 mg/dL (0.2-1.0); CO2 25.7 mmol/L (21.0-32.0); Calcium 9.5 mg/dL (8.5-10.1); Chloride 99 mmol/L (98-107); Estimated GFR 86.49 (mL/min/1.73m2); Glucose 140 mg/dL (74-106); Lipase 24 U/L (<78); Magnesium 1.9 mg/dL (1.8-2.4); Potassium 3.7 mmol/L (3.5-5.1); Sodium 139 mmol/L (136-145); Total Protein 8.4 g/dL (6.4-8.2); Troponin I 11 ng/L (<or=76)
[2025-02-28] MEDS: Normal Saline - Diluent 50 ML VIAL IJ ×2 (09:44→09:55)
[2025-02-28] MEDS: Omnipaque 350 MG/ML 100 ML BTL IJ (09:45)
--- NOTE | 2025-02-28 09:49 | DI.CT_ITS ---
Exam(s) CT BRAIN NECK CTA EXAM: CT BRAIN NECK CTA CLINICAL HISTORY: dizzy. TECHNIQUE: Imaging Protocol: Axial CT angiography was performed with multi- slice acquisition and multi-planar and/or 3D reconstructions. CONTRAST MATERIAL: Intravenous: Omnipaque 350 Contrast volume:150 mL COMPARISON: CT CT HEAD WO from 03/20/2024 FINDINGS: CTA Neck W: Aortic arch anatomy: The aortic arch anatomy is conventional and there is no significant stenosis at the origin of the great vessels off of the aortic arch. No intimal flap evident. Anterior circulation: Both common carotid arteries ascend with normal luminal diameters. At the level the carotid bulbs and proximal internal carotid arteries there is no significant plaque and no significant stenosis evident. The internal carotid arteries are also nicely patent and non tortuous in the upper neck . they are demonstrated to be patent in the skull base-carotid canals. Posterior circulation: Both vertebral arteries originate in conventional fashion off of the subclavian arteries and there is no obvious stenosis at the origin of the vertebral arteries. Both vertebral arteries exhibit normal luminal diameters within the foramen transversarium. No stenosis nor dissection. Both vertebral arteries contribute to the formation of the basilar artery at the skull base. CTA Brain W: Anterior circulation: Both internal carotid arteries are patent in the skull base-carotid canals as well as within the cavernous sinuses. The supraclinoid aspects of the ICAs are patent. Both A1 segments are patent as are the anterior cerebral arteries and there is no evidence of aneurysm at the level of the anterior communicating artery. Both middle cerebral arteries are patent with no evidence of significant stenosis nor intraluminal thrombus. There also no aneurysms of these vessels. Posterior circulation: Basilar artery ascends without significant stenosis. Distally gives off patent superior cerebellar arteries. Above this level the basilar artery terminates as patent bilateral posterior cerebral arteries. There is no evidence of aneurysm at the tip of the basilar artery nor elsewhere in the [id number]. CT BRAIN: There is no evidence of intracranial hemorrhage, mass effect, or shift of midline structures. There are no extra-axial fluid collections. Ventricles are not enlarged or shifted. There are no ring enhancing lesions in the brain and no abnormal meningeal enhancement. There is mucosal thickening in both maxillary sinuses including a post inflammatory retention cyst in the inferior aspect of the right maxillary sinus which measures 1.9 x 1.8 cm. No fluid levels are noted in the maxillary sinuses but there is mucosal thickening in the posterior wall is sphenoid sinus. Mild- moderate mucosal thickening is noted in multiple ethmoidal air cells. The frontal sinuses are clear. Mastoid air cells are clear. IMPRESSION: 1. Patent carotid arteries in the neck. No hemodynamically significant stenosis. No significant tortuosity. No dissection. 2. Patent vertebral arteries. 3. Patent intracranial arteries. No evidence of significant stenosis nor occlusion. No aneurysms. No evidence of obvious vascular malformation. 4. There are no ring enhancing lesions in the brain and there is no abnormal meningeal enhancement. 5. Maxillary sinus and sphenoid sinus mucosal disease as described above. Preliminary virtual Radiology report was reviewed. RADIATION DOSE DELIVERED: 2,400.7mGy.cm Total DLP DATA REPOSITORY: All CT scans at this facility are submitted to the National Radiology Data Registry (NRDR) Dose Index Registry (DIR) with the [employer] (ACR). RADIATION OPTIMIZATION: All CT scans at this facility use at least one of these dose optimization techniques: automated exposure control; mA and/or kV adjustment per patient size (includes targeted exams where dose is matched to clinical indication); or iterative reconstruction.
[2025-02-28] MEDS: Omnipaque 350 MG/ML 50 ML BTL IJ (09:56)
[2025-02-28] MEDS: Normal Saline 1,000 ML 1000 ML IV (10:14)
--- NOTE | 2025-02-28 10:14 | DI.VRAD_ITS ---
PROCEDURE INFORMATION: Exam: CTA Chest With Contrast CTA Abdomen and Pelvis With Contrast Exam date and time: 02/28/2025 9:53 AM Age: 39 years old Clinical indication: Other: Concern for dissection; Abdominal pain TECHNIQUE: Imaging protocol: Computed tomographic angiography of the chest with contrast. Exam focused on the arteries. Computed tomographic angiography of the abdomen and pelvis with contrast. Exam focused on the arteries. 3D rendering (Not supervised by radiologist): MIP and/or 3D reconstructed images were created by the technologist. Contrast material: OMNIPAQUE 350; Contrast volume: 80 ml; Contrast route: INTRAVENOUS (IV); COMPARISON: No relevant prior studies are available for comparison. FINDINGS: VASCULATURE: Pulmonary arteries: No pulmonary embolus is appreciated. Aorta: No aortic aneurysm or dissection seen. Apparent linear hypodensity in the descending thoracic aorta attributed to motion artifact rather than true dissection. Celiac trunk and mesenteric arteries: No occlusion or significant stenosis. Renal arteries: No occlusion or significant stenosis. Right iliac arteries: No occlusion or significant stenosis. Left iliac arteries: No occlusion or significant stenosis. CHEST: Lungs: Dependent changes are present in the lungs. Pleural spaces: No pleural effusion. Heart: No pericardial effusion. Diaphragm: Small hiatal hernia. ABDOMEN AND PELVIS: Liver: No focal hepatic lesion seen. Gallbladder and biliary ducts: No calcified stones. Pancreas: No evidence for acute pancreatitis. Spleen: No splenomegaly. Adrenal glands: No adrenal masses. Kidneys and ureters: No hydronephrosis. Stomach and bowel: No intestinal obstruction is evident. Areas of apparent mural thickening in the colon commensurate with underdistention. Colonic diverticula. Appendix: No evidence of appendicitis. Intraperitoneal space: No free air. Urinary bladder: Contrast in the urinary bladder. Reproductive: Unremarkable as visualized. Lymph nodes: Nonspecific mesenteric and retroperitoneal lymph nodes. Bones/joints: Unremarkable. No acute fracture. Soft tissues: Fat containing umbilical hernia. IMPRESSION: 1. No acute findings to explain reported symptoms. 2. Nonacute findings as outlined above. Dictated and Authenticated by: Yee Wood MD. Orderin Mo Gee MD
--- NOTE | 2025-02-28 10:21 | DI.VRAD_ITS ---
PROCEDURE INFORMATION: Exam: CTA Head Without And With Contrast, Arteriography Exam date and time: 02/28/2025 9:37 AM Age: 39 years old Clinical indication: Vertigo TECHNIQUE: Imaging protocol: Computed tomographic angiography of the head without and with contrast. Exam focused on the arteries. 3D rendering (Not supervised by radiologist): MIP and/or 3D reconstructed images were created by the technologist. Contrast material: OMNIPAQUE 350; Contrast volume: 70 ml; Contrast route: INTRAVENOUS (IV); COMPARISON: CT HEAD WO 03/20/2024 11:43 AM FINDINGS: ANTERIOR CIRCULATION: Right internal carotid artery: Intracranial segment is patent with no significant stenosis or occlusion. No aneurysm. Right middle cerebral artery: No occlusion or significant stenosis. No aneurysm. Right anterior cerebral artery: No occlusion or significant stenosis. No aneurysm. Left internal carotid artery: Intracranial segment is patent with no significant stenosis. No aneurysm. Left middle cerebral artery: No occlusion or significant stenosis. No aneurysm. Left anterior cerebral artery: No occlusion or significant stenosis. No aneurysm. POSTERIOR CIRCULATION: Right vertebral artery: No occlusion or significant stenosis. No aneurysm. Left vertebral artery: No occlusion or significant stenosis. No aneurysm. Basilar artery: No occlusion or significant stenosis. No aneurysm. Right posterior cerebral artery: No occlusion or significant stenosis. No aneurysm. Left posterior cerebral artery: No occlusion or significant stenosis. No aneurysm. HEAD: Brain: Normal. No hemorrhage. Unremarkable white matter. No mass effect. Cerebral ventricles: Normal. No ventriculomegaly. Bones: Unremarkable. No acute fracture. Paranasal sinuses: Mucosal disease in bilateral maxillary sinuses, bilateral sphenoid sinuses and ethmoid air cells. Mastoid air cells: Visualized mastoids are normal. No mastoid effusion. Soft tissues: Unremarkable. IMPRESSION: 1. No large territorial infarct or intracranial bleed. 2. No large vessel occlusion. PROCEDURE INFORMATION: Exam: CTA Neck Without And With Contrast Exam date and time: 02/28/2025 9:37 AM Age: 39 years old Clinical indication: Vertigo TECHNIQUE: Imaging protocol: Computed tomographic angiography of the neck without and with contrast. Exam focused on the cervical segments of the vasculature. 3D rendering (Not supervised by radiologist): MIP and/or 3D reconstructed images were created by the technologist. Contrast material: OMNIPAQUE 350; Contrast volume: 70 ml; Contrast route: INTRAVENOUS (IV); COMPARISON: CT HEAD WO 03/20/2024 11:43 AM FINDINGS: Right common carotid artery: No stenosis. No dissection or occlusion. Right internal carotid artery: No stenosis of the extracranial segment. No dissection or occlusion. Right external carotid artery: No occlusion or stenosis of the origin. Left common carotid artery: No stenosis. No dissection or occlusion. Left internal carotid artery: No stenosis of the extracranial segment. No dissection or occlusion. Left external carotid artery: No occlusion or stenosis of the origin. Right vertebral artery: No stenosis. No dissection or occlusion. Left vertebral artery: No stenosis. No dissection or occlusion. Soft tissues: Normal. No significant soft tissue swelling. Bones/joints: The cervical spine demonstrates mild degenerative changes at multiple levels. IMPRESSION: No significant arterial stenosis. REFERENCES: NASCET CRITERIA. The degree of stenosis in the cervical segment of the internal carotid artery is based on NASCET criteria. Normal is no stenosis. Mild is less than 50% stenosis. Moderate is 50-69% stenosis. Severe is 70% to 99% stenosis. Total occlusion is no detectable patent lumen. Dictated and Authenticated by: Carrington Scruggs MD. Orderin Mo Gee MD
[2025-02-28 10:34] LABS: Troponin I 11 ng/L (<or=76)
[2025-02-28 10:52] LABS: COVID-19 PCR Negative (Negative); RSV PCR Negative (Negative)
--- NOTE | 2025-02-28 10:52 | NUR.NOTE ---
Gem [phone] Note:
[2025-02-28 11:33] LABS: Glucose Negative (Negative)
[2025-02-28] MEDS: Doxycycline Hyclate 100 MG CAP PO (12:03)
[2025-02-28 12:05] LABS: Cannabinoids THC Negative (Negative); METHADONE URINE SCREEN Negative (Negative)
--- NOTE | 2025-02-28 12:54 | W.ED.GENAD ---
Discharge Plan Disposition Patient Disposition: Home Discharge Details Clinical Impression: Rigyoni Primary Care Provider: Gemini Emanuel ED Provider: Sapphire Hassan Home Meds and New Rx's Prescriptions: New doxycycline hyclate 100 mg capsule 100 mg PO BID 14 Days Qty: 28 0RF No Action albuterol sulfate [Proventil HFA] 90 mcg/actuation HFA aerosol inhaler 2 puff inhalation Q6H PRN (Reason: shortness of breath or wheezing) Qty: 8.5 0RF buprenorphine-naloxone 4-1 mg film 1 film sublingual DAILY Discharge Instructions Additional Instructions: blood work, CT imaging are unremarkable for acute process. your blood work for tick illnesses have been sent out and may take a few days to return. because of your symptoms and you had a tick bite, will start you on doxycylcine. first dose given today. continue this course and return with other symptoms or concerns as needed. please follow up with your PCP. HPI General Date/Time Provider Initiated Documentation: 02/28/25 09:08. Limitations to Documentation: physical limitation. Information obtained by: patient. HPI Narrative: 39-year-old gentleman with out significant past medical history presents for evaluation dizziness, rigors chest pain. He reports that today he was not feeling very well and been feeling kind of dizzy and lightheaded, so he decided to come into the hospital and he noted that on the way he started having generalized shaking that he could not control, feeling very cold. He reports having some discomfort in his chest and abdomen. reports that this pain was radiating up the left side of his neck. Denies any vision change or headache. He denies any speech difficulty or focal weakness. Reports that he has been having some abdominal pain was recently diagnosed with a hernia. Reports that this pain has gone down his left leg Related Data Home Medications ?Medication ?Instructions ?Recorded ?Confirmed albuterol sulfate 90 mcg/actuation 2 puff inhalation Q6H PRN 11/19/23 02/28/25 aerosol inhaler (Proventil HFA) shortness of breath or wheezing #8.5 grams buprenorphine 4 mg-naloxone 1 mg 1 film sublingual DAILY 12/29/23 02/28/25 sublingual film doxycycline hyclate 100 mg capsule 100 mg PO BID 14 days #28 caps 02/28/25 Previous Rx's ?Medication ?Instructions ?Recorded albuterol sulfate 90 mcg/actuation 2 puff inhalation Q6H PRN 11/19/23 aerosol inhaler (Proventil HFA) shortness of breath or wheezing #8.5 grams doxycycline hyclate 100 mg capsule 100 mg PO BID 14 days #28 caps 02/28/25 Allergies Allergy/AdvReac Type Severity Reaction Status Date / Time Penicillins Allergy Intermediate Skin Rash Verified 02/28/25 09:09 acetaminophen (From Percocet) Allergy Other (See Verified 02/28/25 09:09 Comment) oxycodone (From Percocet) Allergy Other (See Verified 02/28/25 09:09 Comment) Nuts AdvReac Intermediate scratchy Uncoded 02/28/25 09:09 throat, per pt General Stated Complaint: Dizzy/Sync STEFAN: 2 Exam Narrative Exam Narrative: Review of Systems: All systems reviewed & are unremarkable except as noted in HPI and below Well-developed, ill appearing severe rigors NCAT PERRL, normal conjunctiva , no nystagmus tachycardic Unlabored respiratory effort, CTAB Nondistended abdomen , soft, non tender Extremities w/o deformity, no cyanosis, no edema Muscle compartments soft skin cool, clammy No rashes or lesions. no focal neurologic deficits Course Vital Signs Vital signs: Vital Signs Temperature 35.8 C L 02/28/25 08:59 Pulse 100 H 02/28/25 08:59 Respiratory Rate 20 02/28/25 08:59 Blood Pressure 132/88 02/28/25 08:59 Pulse Oximetry 100 02/28/25 08:59 Temperature 35.8 C L 02/28/25 08:59 Temperature Source Tympanic 02/28/25 08:59 Pulse 78 02/28/25 12:04 Pulse 76 02/28/25 12:04 Respiratory Rate 11 L 02/28/25 12:04 Respiratory Effort Normal, Non-Labored 02/28/25 09:26 Respiratory Depth Normal 02/28/25 09:26 Respiratory Pattern Normal 02/28/25 09:26 Blood Pressure 134/88 02/28/25 12:04 Blood Pressure Mean 102 02/28/25 12:04 Blood Pressure Position Sitting 02/28/25 08:59 Pulse Oximetry 97 02/28/25 12:04 Oxygen Delivery Method Room Air 02/28/25 08:59 Oxygen Flow Rate 0 02/28/25 08:59 Lab/Test Results Lab/Test Results: Laboratory Tests Range/Units 02/28/25 02/28/25 02/28/25 09:08 10:07 10:10 WBC (4.4-10.8) 10^3/uL 8.59 RBC (4.36-5.78) 10^6/uL 5.60 Hgb (13.5-17.5) g/dL 15.9 Hct (40.0-50.0) % 47.5 MCV (80-95) fL 85 MCH (27.0-33.0) pg 28.4 MCHC (32.0-36.0) % 33.5 RDW (11.8-14.1) % 12.2 Plt Count (130-400) 10^3/uL 255 MPV (8.0-11.0) fL 10.6 Immature Gran % % 0.2 Neutrophils % % 42.3 Lymphocytes % % 45.5 Monocytes % % 9.0 Eosinophils % % 2.7 Basophils % % 0.3 Nucleated RBC % (0.0-0.3) % 0.0 Absolute Neutrophils (1.2-6.7) 10^3/uL 3.63 Absolute Lymphocytes (1.2-3.4) 10^3/uL 3.91 H Absolute Monocytes (0.1-0.8) 10^3/uL 0.77 Absolute Eosinophils (0.0-0.7) 10^3/uL 0.23 Absolute Basophils (0.0-0.2) 10^3/uL 0.03 PT (9.1-11.1) sec 10.0 INR (0.9-1.1) 1.0 VBG Lactate (<or=2.0) mmol/L 4.2 H* Sodium (136-145) mmol/L 139 Potassium (3.5-5.1) mmol/L 3.7 Chloride (98-107) mmol/L 99 Carbon Dioxide (21.0-32.0) mmol/L 25.7 Anion Gap (3-11) mmol/L 14.3 H BUN (7-18) mg/dL 18 Creatinine (0.70-1.30) mg/dL 1.1 Est GFR (CKD-EPI 2020) (mL/min/1.73m2) 86.49 Glucose (74-106) mg/dL 140 H Calcium (8.5-10.1) mg/dL 9.5 Magnesium (1.8-2.4) mg/dL 1.9 Total Bilirubin (0.2-1.0) mg/dL 0.5 AST (15-37) U/L 19 ALT (16-63) U/L 35 Alkaline Phosphatase (46-116) U/L 76 Troponin I (<or=76) ng/L 11 11 Total Protein (6.4-8.2) g/dL 8.4 H Albumin (3.4-5.0) g/dL 4.6 Lipase (<78) U/L 24 Urine Color (Yellow) Urine Clarity (Clear) Urine pH (5-8) Ur Specific [place] (1.005-1.025) Urine Protein (Neg-Trace) mg/dL Urine Ketones (Negative) mg/dL Urine Blood (Negative) Urine Nitrite (Negative) Urine Bilirubin (Negative) Urine Urobilinogen (Up to 0.2) mg/dL Ur Leukocyte Esterase (Negative) Urine Glucose (Negative) mg/dL Urine Opiates Screen (Negative) Urine Methadone Screen (Negative) Ur Barbiturates Screen (Negative) Ur Tricyclics Screen (Negative) Ur Amphetamines Screen (Negative) U Benzodiazepines Scrn (Negative) Urine Cocaine Screen (Negative) Ur THC Screen (Negative) Ethyl Alcohol (<10) mg/dL 3.9 COVID-19 Source Nasopharynx SARS-CoV-2 (PCR) (Negative) Negative Influenza Type A (PCR) (Negative) Negative Influenza Type B (PCR) (Negative) Negative RSV (PCR) (Negative) Negative Range/Units 02/28/25 02/28/25 11:13 12:09 WBC (4.4-10.8) 10^3/uL RBC (4.36-5.78) 10^6/uL Hgb (13.5-17.5) g/dL Hct (40.0-50.0) % MCV (80-95) fL MCH (27.0-33.0) pg MCHC (32.0-36.0) % RDW (11.8-14.1) % Plt Count (130-400) 10^3/uL MPV (8.0-11.0) fL Immature Gran % % Neutrophils % % Lymphocytes % % Monocytes % % Eosinophils % % Basophils % % Nucleated RBC % (0.0-0.3) % Absolute Neutrophils (1.2-6.7) 10^3/uL Absolute Lymphocytes (1.2-3.4) 10^3/uL Absolute Monocytes (0.1-0.8) 10^3/uL Absolute Eosinophils (0.0-0.7) 10^3/uL Absolute Basophils (0.0-0.2) 10^3/uL PT (9.1-11.1) sec INR (0.9-1.1) VBG Lactate (<or=2.0) mmol/L 0.9 Sodium (136-145) mmol/L Potassium (3.5-5.1) mmol/L Chloride (98-107) mmol/L Carbon Dioxide (21.0-32.0) mmol/L Anion Gap (3-11) mmol/L BUN (7-18) mg/dL Creatinine (0.70-1.30) mg/dL Est GFR (CKD-EPI 2020) (mL/min/1.73m2) Glucose (74-106) mg/dL Calcium (8.5-10.1) mg/dL Magnesium (1.8-2.4) mg/dL Total Bilirubin (0.2-1.0) mg/dL AST (15-37) U/L ALT (16-63) U/L Alkaline Phosphatase (46-116) U/L Troponin I (<or=76) ng/L Cancelled Total Protein (6.4-8.2) g/dL Albumin (3.4-5.0) g/dL Lipase (<78) U/L Urine Color (Yellow) Yellow Urine Clarity (Clear) Clear Urine pH (5-8) 7.5 Ur Specific [place] (1.005-1.025) 1.010 Urine Protein (Neg-Trace) mg/dL Negative Urine Ketones (Negative) mg/dL Negative Urine Blood (Negative) Negative Urine Nitrite (Negative) Negative Urine Bilirubin (Negative) Negative Urine Urobilinogen (Up to 0.2) mg/dL 0.2 Ur Leukocyte Esterase (Negative) Negative Urine Glucose (Negative) mg/dL Negative Urine Opiates Screen (Negative) Negative Urine Methadone Screen (Negative) Negative Ur Barbiturates Screen (Negative) Negative Ur Tricyclics Screen (Negative) Negative Ur Amphetamines Screen (Negative) Negative U Benzodiazepines Scrn (Negative) Negative Urine Cocaine Screen (Negative) Negative Ur THC Screen (Negative) Negative Ethyl Alcohol (<10) mg/dL COVID-19 Source SARS-CoV-2 (PCR) (Negative) Influenza Type A (PCR) (Negative) Influenza Type B (PCR) (Negative) RSV (PCR) (Negative) Medical Decision Making Emergent evaluation of generalized shaking. Initial differential includes acute viral illness, electrolyte derangement, concern for aortic dissection given his pain, clamminess and vague symptoms. Patient does not noted to be hypotensive. EKG obtained and independently interpreted: Sinus 81 PVCs, no acute ischemic change. The patient was sent emergently for CTA imaging to evaluate for acute aortic disruption or dissection. I reviewed the radiology reports and this scan was unremarkable for any acute findings. Patient was given Ativan to help with his rigors as well as IV fluids. After administration of these medications, his rigors had stopped. Lab work was obtained, no leukocytosis or anemia, normal platelet count, initial lactic acid was significantly elevated which I suspect is secondary to the ongoing rigors. Repeat lactic acid after IV fluids was 0.9. Slightly elevated glucose at 140, but no signs of electrolyte derangement or other DKA. Lipase is not elevated, urinalysis is not infected, drug screen is negative. Viral testing was obtained and this is negative. Taken Lyme panel was sent off. Given his symptoms I am suspicious for anaplasmosis given the increased prevalence we have been seeing lately. Given the severity of his initial presentation, will cover with doxycycline. at the time of discharge, patient was feeling much better, tolerating p.o. Return precautions advised. Recommend close follow-up with PCP. [facility] All Active Problems (Updated 02/28/25 @ 11:58 by Sapphire Hassan MD) Rigors (Acute) Abdominal pain in male (Acute) Umbilical hernia (Acute) Acute appendicitis (Acute) COPD (chronic obstructive pulmonary disease) (Chronic) GERD (gastroesophageal reflux disease) (Chronic) Chronic nasal congestion (Acute) Vasovagal episode (Acute) Obstructive sleep apnea syndrome (Chronic) 02/2022-referred for sleep clinic evaluation Diverticulitis of intestine without perforation or abscess (Acute 05/15/17) Confirmed by abd. CT on 01/29/17 Opioid dependence in remission (Acute 10/13/16) 02/2022-several years in remission, on Suboxone, followed by the [facility] Medical History Subluxation of left shoulder joint Bilateral low back pain without sciatica (07/08/15) History of tobacco use Chews does not smoke Back pain Social History Smoking/Tobacco Use Status: Current every day Tobacco Type: smokeless tobacco Tobacco: How many years used: 20 Smokeless tobacco user: chewing tobacco Quit status: not considering quitting Smoking risk assessment performed?: Yes Alcohol Intake: never Drug use: Current Sobriety Substance use type: does not use Caregiver/Support person: No Household members: spouse and children Housing: house Communication Needs: None Do you need help understanding health information?: Never Pets and animals: Yes Pets and animals: cat(s) and dog(s) Sexually active: Yes Do you think of yourself as: straight/heterosexual Current gender identity: male What is your relationship status?: How often do you talk on the phone with friends or family?: three or more times per week How often do you get together with friends or relatives?: twice per week How often do you attend confucianist or jainism services?: decline to answer Do you belong to any clubs or organized social groups?: no Panel score (0-1 are the most socially isolated patients): 2 What type of physical activity do you participate in: walking Duration: 30-45 minutes/day Frequency: 1-2 times per week Marybel/Methodist: No preference Special marybel needs: No Seatbelt use: sometimes Helmet use: Yes Helmet use: always Drive intox or ride w/intox driver courier: No Do you feel safe at home: Yes Do you feel safe in your relationship?: Yes
[2025-03-02 09:05] LABS: Lyme Ab w Rflx to Lyme Confirm Negative (Negative)
[2025-03-04 11:23] LABS: B. miyamotoi PCR Negative (Negative); Babesia divergens/MO-1 Negative (Negative); Ehrlichia muris eauclairensis Negative (Negative)
== END 2025-02-28 12:13 | disposition home or self-care (01) ==
PROVIDERS: Emergency Provider Emergency Medicine; PCP Nurse Practitioner Family
DX: R42 Dizziness and giddiness (principal); R68.89 Other general symptoms and signs; R20.2 Paresthesia of skin
CPT/HCPCS: 99284; 99285; 96374; 36415; 70496; 70498; 71275; 80053; 80307; 83690; 87637; 87798; 93005; 96361; 74174; 80320; 81003; 83605; 83735; 84484; 85025; 85610; 86618; 93010; J2060; J3490; Q9967

== ENCOUNTER 2025-03-01 09:40 | Emergency (ER) | payer BC, SELFPAY ==
[2025-03-01 09:34] VITALS: BP 134/86; PULSE 73; PULSE 74; RESP 13; RESP 8; TEMP 36.8; O2SAT 97
[2025-03-01 09:35] VITALS: BP 134/86; PULSE 78; PULSE 79; RESP 12; O2SAT 97
[2025-03-01 09:40] VITALS: PULSE 76; RESP 21; O2SAT 97
[2025-03-01 09:46] VITALS: BP 124/70; PULSE 77; RESP 10; O2SAT 96
[2025-03-01 09:50] VITALS: BP 132/56; PULSE 67; PULSE 86; RESP 15; O2SAT 96
[2025-03-01 09:51] VITALS: PULSE 77; RESP 14; O2SAT 97
[2025-03-01 10:03] LABS: Abs Immature Grans 0.00 10^3/uL (0.0-0.06); HCT 43.5 % (40.0-50.0); HGB 14.4 g/dL (13.5-17.5); Immature Grans % 0.0 %; MCH 28.3 pg (27.0-33.0); MCHC 33.1 % (32.0-36.0); MCV 86 fL (80-95); MPV 10.7 fL (8.0-11.0); Platelet Count 198 10^3/uL (130-400); RBC 5.08 10^6/uL (4.36-5.78); RDW 12.3 % (11.8-14.1); RDW-SD 38.6 fL; WBC 4.85 10^3/uL (4.4-10.8)
[2025-03-01 10:14] LABS: ALT 29 U/L (16-63); AST 14 U/L (15-37); Albumin 3.7 g/dL (3.4-5.0); Alkaline Phosphatase 66 U/L (46-116); Anion Gap 9.9 mmol/L (3-11); BUN 17 mg/dL (7-18); Bilirubin, Total 0.5 mg/dL (0.2-1.0); CO2 27.1 mmol/L (21.0-32.0); Calcium 8.6 mg/dL (8.5-10.1); Chloride 102 mmol/L (98-107); Estimated GFR 96.97 (mL/min/1.73m2); Glucose 156 mg/dL (74-106); Magnesium 1.8 mg/dL (1.8-2.4); Potassium 3.5 mmol/L (3.5-5.1); Sodium 139 mmol/L (136-145); Total Protein 7.2 g/dL (6.4-8.2); Troponin I 10 ng/L (<or=76)
--- NOTE | 2025-03-01 10:15 | RT.EKG_ITS ---
APPROVED REPORT Exam: Resting ECG Reason for Exam: arm numb Patient Location: E HR:67 bpm ECG Measurements Heart Rate 67 AXIS DE 150 P 26 QRSd 98 QRS 79 QT 396 T 55 QTc 417 Conclusion Sinus rhythm 67 normal axis no stemi
--- NOTE | 2025-03-01 11:12 | ED.GENADUL_ITS ---
Discharge Plan Disposition Patient Disposition: Home Discharge Details Clinical Impression: Dizziness Primary Care Provider: Gemini Emanuel ED Provider: Sapphire Hassan Home Meds and New Rx's Prescriptions: No Action albuterol sulfate [Proventil HFA] 90 mcg/actuation HFA aerosol inhaler 2 puff inhalation Q6H PRN (Reason: shortness of breath or wheezing) Qty: 8.5 0RF buprenorphine-naloxone 4-1 mg film 1 film sublingual DAILY doxycycline hyclate 100 mg capsule 100 mg PO BID 14 Days Qty: 28 0RF Discharge Instructions Additional Instructions: continue doxycylcine medicine prescribed yesterday monitor symptoms, return with any weakness, facial asymmetry or speech changes please follow up with your PCP this week for any ongoing symptoms. HPI General Date/Time Provider Initiated Documentation: 03/01/25 10:25 . Limitations to Documentation: no limitations . Information obtained by: patient and old records reviewed . HPI Narrative: 39-year-old gentleman with past medical history of COPD presents for evaluation of recurrence of symptoms. He reports that he was sitting watching TV when he started to feel lightheaded, have left arm tingling, he felt slightly nauseated but did not have any vomiting. He did not have any chest pain. He denies any weakness, facial asymmetry, speech change. He states that the symptoms lasted for only a few minutes before calling 911. Reports that this time he does not have any symptoms. He states that he was just scared because he did not want to feel as bad as he felt yesterday. He was seen in the emergency department yesterday with generalized rigors. CT imaging and lab work at that time were unremarkable. The patient was discharged with doxycycline which she states he has been taking. He reports that he has been sleeping a lot but feeling a little bit better since yesterday. Related Data Home Medications ?Medication ?Instructions ?Recorded ?Confirmed albuterol sulfate 90 mcg/actuation 2 puff inhalation Q 6H PRN 11/19/23 03/01/25 aerosol inhaler (Proventil HFA) shortness of breath or wheezing #8.5 grams buprenorphine 4 mg-naloxone 1 mg 1 film sublingual HU LY 12/29/23 03/01/25 sublingual film doxycycline hyclate 100 mg capsule 100 mg PO BID 14 da ys #28 caps 02/28/25 03/01/25 Previous Rx's ?Medication ?Instructions ?Recorded albuterol sulfate 90 mcg/actuation 2 puff inhalation Q 6H PRN 11/19/23 aerosol inhaler (Proventil HFA) shortness of breath or wheezing #8.5 grams doxycycline hyclate 100 mg capsule 100 mg PO BID 14 da ys #28 caps 02/28/25 Allergies Allergy/AdvReac Type Severity Reaction Status Date / Time Penicillins Allergy Intermediate Skin Rash Verified 03/01/25 09:52 acetaminophen (From Percocet) Allergy Other (See Verified 03/01/25 09:52 Comment) oxycodone (From Percocet) Allergy Other (See Verified 03/01/25 09:52 Comment) Nuts AdvReac Intermediate scratchy Uncoded 02/28/25 09:09 throat, per pt General Stated Complaint: Dizzy/Sync STEFAN: 3 Exam Narrative Exam Narrative: Review of Systems: All systems reviewed & are unremarkable except as noted in HPI and below Well-developed, no acute distress NCAT PERRL, normal conjunctiva no nystagmus RRR no murmur Unlabored respiratory effort clear bilaterally Nondistended abdomen soft nontender No rashes or lesions. no focal neurologic deficits, clear speech, normal gait, no rigors or other tremor noted Appropriate mood and affect Course Vital Signs Vital signs: Vital Signs Temperature 36.8 C 03/01/25 09:34 Pulse 74 03/01/25 09:34 Respiratory Rate 13 03/01/25 09:34 Blood Pressure 134/86 03/01/25 09:34 Pulse Oximetry 97 03/01/25 09:34 Temperature 36.8 C 03/01/25 09:34 Temperature Source Oral 03/01/25 09:34 Pulse 77 03/01/25 09:51 Pulse 77 03/01/25 09:51 Respiratory Rate 14 03/01/25 09:51 Respiratory Effort Normal 03/01/25 09:43 Blood Pressure 132/56 L 03/01/25 09:50 Blood Pressure Mean 83 03/01/25 09:50 Blood Pressure Position Sitting 03/01/25 09:34 Pulse Oximetry 97 03/01/25 09:51 Oxygen Delivery Method Room Air 03/01/25 09:34 Oxygen Flow Rate 0 03/01/25 09:34 End Tidal Co2 6 03/01/25 09:34 Lab/Test Results Lab/Test Results: Laboratory Tests Range/Units 07/06/25 07/06/25 07/06/25 09:50 10:40 12:40 WBC (4.4-10.8) 10^3/uL 4.85 RBC (4.36-5.78) 10^6/uL 5.08 Hgb (13.5-17.5) g/dL 14.4 Hct (40.0-50.0) % 43.5 MCV (80-95) fL 86 MCH (27.0-33.0) pg 28.3 MCHC (32.0-36.0) % 33.1 RDW (11.8-14.1) % 12.3 Plt Count (130-400) 10^3/uL 198 MPV (8.0-11.0) fL 10.7 Immature Gran % % 0.0 Neutrophils % % 61.0 Lymphocytes % % 28.7 Monocytes % % 7.2 Eosinophils % % 2.7 Basophils % % 0.4 Nucleated RBC % (0.0-0.3) % 0.0 Absolute Neutrophils (1.2-6.7) 10^3/uL 2.96 Absolute Lymphocytes (1.2-3.4) 10^3/uL 1.39 Absolute Monocytes (0.1-0.8) 10^3/uL 0.35 Absolute Eosinophils (0.0-0.7) 10^3/uL 0.13 Absolute Basophils (0.0-0.2) 10^3/uL 0.02 Sodium (136-145) mmol/L 139 Potassium (3.5-5.1) mmol/L 3.5 Chloride (98-107) mmol/L 102 Carbon Dioxide (21.0-32.0) mmol/L 27.1 Anion Gap (3-11) mmol/L 9.9 BUN (7-18) mg/dL 17 Creatinine (0.70-1.30) mg/dL 1.0 Est GFR (CKD-EPI 2020) (mL/min/1.73m2) 96.97 Glucose (74-106) mg/dL 156 H Calcium (8.5-10.1) mg/dL 8.6 Magnesium (1.8-2.4) mg/dL 1.8 Total Bilirubin (0.2-1.0) mg/dL 0.5 AST (15-37) U/L 14 L ALT (16-63) U/L 29 Alkaline Phosphatase (46-116) U/L 66 Troponin I (<or=76) ng/L 10 Cancelled Cancelled Total Protein (6.4-8.2) g/dL 7.2 Albumin (3.4-5.0) g/dL 3.7 Medical Decision Making Emergent evaluation of dizziness. Patient's symptoms were spontaneous and resolved without any intervention. At this time he has a nonfocal neurologic exam and has no symptoms. He is hemodynamically stable. I evaluated the patient yesterday in the emergency department at that time he had severe rigors. He had full workup including CTA of head, neck, chest abdomen and pelvis to evaluate for dissection which was all unremarkable. Given the normality of his exam and vital signs at this time, I do not feel that repeat imaging is indicated. The symptoms do not seem consistent with a TIA or other intracranial process. He is currently being treated for possible anaplasmosis, this testing is not back yet. The remainder of his lab work has been totally unremarkable on repeat testing today. Repeat EKG was independently interpreted: Sinus 67 normal axis no acute ischemic changes. At this time no emergent condition has been identified and the patient is stable for discharge home. I do recommend close follow-up with PCP if he is having persistent ongoing symptoms. PFSH All Active Problems (Updated 03/01/25 @ 10:54 by Sapphire Hassan MD) Dizziness (Acute) Rigors (Acute) Abdominal pain in male (Acute) Umbilical hernia (Acute) Acute appendicitis (Acute) COPD (chronic obstructive pulmonary disease) (Chronic) GERD (gastroesophageal reflux disease) (Chronic) Chronic nasal congestion (Acute) Vasovagal episode (Acute) Obstructive sleep apnea syndrome (Chronic) 02/2022-referred for sleep clinic evaluation Diverticulitis of intestine without perforation or abscess (Acute 05/15/17) Confirmed by abd. CT on 01/29/17 Opioid dependence in remission (Acute 10/13/16) 02/2022-several years in remission, on Suboxone, followed by the [facility] Medical History Subluxation of left shoulder joint Bilateral low back pain without sciatica (07/08/15) History of tobacco use Chews does not smoke Back pain Social History Smoking/Tobacco Use Status: Current every day Tobacco Type: smokeless tobacco Tobacco: How many years used: 20 Smokeless tobacco user: chewing tobacco Quit status: not considering quitting Smoking risk assessment performed?: Yes Alcohol Intake: never Drug use: Current Sobriety Substance use type: does not use Caregiver/Support person: No Household members: spouse and children Housing: house Communication Needs: None Do you need help understanding health information?: Never Pets and animals: Yes Pets and animals: cat(s) and dog(s) Sexually active: Yes Do you think of yourself as: straight/heterosexual Current gender identity: male What is your relationship status?: How often do you talk on the phone with friends or family?: three or more times per week How often do you get together with friends or relatives?: twice per week How often do you attend cheondoism or episcopal services?: decline to answer Do you belong to any clubs or organized social groups?: no Panel score (0-1 are the most socially isolated patients): 2 What type of physical activity do you participate in: walking Duration: 30-45 minutes/day Frequency: 1-2 times per week Marybel/Methodist: No preference Special marybel needs: No Seatbelt use: sometimes Helmet use: Yes Helmet use: always Drive intox or ride w/intox driver guard: No Do you feel safe at home: Yes Do you feel safe in your relationship?: Yes
--- NOTE | 2025-03-03 20:24 | NUR.NOTE ---
This working supervisor in chart for continuation of care as req with RAMESH from [facility]. All requested and approved docs sent via fax.
== END 2025-03-01 11:02 | disposition home or self-care (01) ==
PROVIDERS: Emergency Provider Emergency Medicine; PCP Nurse Practitioner Family
DX: R42 Dizziness and giddiness (principal)
CPT/HCPCS: 99283; 99284; 36415; 36416; 82962; 80053; 93005; 83735; 84484; 85025; 93010

== ENCOUNTER 2025-03-23 03:53 | Outpatient (CLI) | payer BC, SELFPAY ==
[2025-03-25 11:14] LABS: Lyme Ab w Rflx to Lyme Confirm Negative (Negative)
[2025-03-27 13:42] LABS: B. miyamotoi PCR Negative (Negative); Babesia divergens/MO-1 Negative (Negative); Ehrlichia muris eauclairensis Negative (Negative)
== END 2025-03-23 03:54 | disposition home or self-care (01) ==
LOC: LBO 03:53
PROVIDERS: PCP Nurse Practitioner Family; Visit Provider Family Medicine
DX: W57.XXXA Bitten or stung by nonvenomous insect and other nonvenomous arthropods, initial encounter (principal); R68.89 Other general symptoms and signs
CPT/HCPCS: 36415; 87798; 86618

== ENCOUNTER 2025-03-26 09:39 | Day surgery (SDC) | payer BC, SELFPAY ==
[2025-03-26 10:11] VITALS: BP 114/76; PULSE 69; RESP 16; TEMP 36.2; O2SAT 99
[2025-03-26] MEDS: Lactated Ringers 1,000 ML 80 ML IV (10:25)
--- NOTE | 2025-03-26 11:39 | W.ANESPRE ---
General Info Date of Service Date Performed: 03/26/25 Height: 5 ft 9 in Weight: 95.2 kg Body Mass Index (BMI): 30.9 Surgical Procedure: Operation Date: 03/26/25 12:35 Proposed Procedure Side Surgeon p Gastroscopy Amina Us MD Meds Allergies and Home Medications Allergies Allergy/AdvReac Type Severity Reaction Status Date / Time Penicillins Allergy Intermediate Skin Rash Verified 03/26/25 10:16 oxycodone (From Percocet) Allergy Other (See Verified 03/26/25 10:16 Comment) Nuts AdvReac Intermediate scratchy Uncoded 03/26/25 10:16 throat, per pt Home Medication ?Medication ?Instructions ?Recorded albuterol sulfate 90 mcg/actuation 2 puff inhalation Q6H PRN 11/19/23 aerosol inhaler (Proventil HFA) shortness of breath or wheezing #8.5 grams buprenorphine 4 mg-naloxone 1 mg 1 film sublingual DAILY 12/29/23 sublingual film famotidine 40 mg tablet 40 mg PO QHS #30 tabs 03/11/25 pantoprazole 40 mg tablet,delayed 40 mg PO DAILY #30 tabs 03/11/25 release Current Visit Medications: Current Medications Generic Name Dose Route Start Last Admin Trade Name Freq PRN Reason Stop Dose Admin Ringer's Solution 1,000 mls @ 80 mls/hr 03/26/25 06:00 03/26/25 10:25 IV 03/26/25 23:59 80 mls/hr INFUSION GEOFFREY Administration IV Miscellaneous Supplies 1 each 03/26/25 06:00 Iv Access IV 03/26/25 23:59 DIRECTED GEOFFREY Sodium Chloride 0 ml 03/26/25 06:00 Normal Saline Flush 10 Ml Syr IV 03/26/25 23:59 PRN PRN Sodium Chloride 0 ml 03/26/25 06:00 Normal Saline 10 Ml Vial IJ 03/26/25 23:59 DIRECTED PRN Sterile Water 0 ml 03/26/25 06:00 Water,Injection,Sterile 10 Ml Vial IJ 03/26/25 23:59 DIRECTED PRN PFSH Active Problems Active Problems: Problem Status Onset Code Anxiety about health Acute R45.89 Nausea Acute R11.0 Epigastric pain Acute R10.13 Dizziness Acute R42 Rigors Acute R68.89 Abdominal pain in male Acute R10.9 Umbilical hernia Acute K42.9 Acute appendicitis Acute K35.80 COPD (chronic obstructive pulmonary disease) Chronic J44.9 GERD (gastroesophageal reflux disease) Chronic K21.9 Chronic nasal congestion Acute R09.81 Vasovagal episode Acute R55 Obstructive sleep apnea syndrome Chronic G47.33 Diverticulitis of intestine without perforation or abscess Acute 05/15/17 K57.92 Opioid dependence in remission Acute 10/13/16 F11.21 Medical History Medical History H/O pilonidal cyst Subluxation of left shoulder joint Bilateral low back pain without sciatica (07/08/15) History of tobacco use Chews does not smoke Back pain Surgical History Surgical History H/O lumbar discectomy 2014 Tobacco Smoking/Tobacco Use Status: Current every day Tobacco Type: smokeless tobacco Smokeless tobacco user: chewing tobacco Passive smoking exposure: Yes Alcohol Alcohol Intake: never Substance Use Substance use: Current Sobriety Substance use type: does not use Vital Signs and Lab Results Vital Signs Most Recent Vital Signs in EMR: Most Recent Vital Signs Temp Pulse Resp BP Pulse Ox 36.2 C L 69 16 114/76 99 03/26/25 10:11 03/26/25 10:11 03/26/25 10:11 03/26/25 10:11 03/26/25 10:11 Lab Results Complete Blood Count: WBC, (4.4-10.8) 8.7 10^3/uL 03/03/25, 14:37 RBC 5.63 10^6/uL 03/03/25, 14:37 Hgb 16.4 g/dL 03/03/25, 14:37 Hct 48 % 03/03/25, 14:37 Plt Count 244 10^3/uL 03/03/25, 14:37 VBG Lactate, (<or=2.0) 0.9 mmol/L 02/28/25, 11:13 Complete Metabolic Panel: Sodium, (120-150) 136 03/03/25, 15:30 Potassium, (3.5-5.1) 4 mmol/L 03/03/25, 15:30 Chloride 101 mmol/L 03/03/25, 15:30 Carbon Dioxide 27 mmol/L 03/03/25, 15:30 BUN, (7-18) 17 mg/dL 03/03/25, 15:30 Creatinine 1.1 mg/dL 03/03/25, 15:30 Est GFR (CKD-EPI 2020) 86 mL/min/ 03/03/25, 15:30 Magnesium, (1.8-2.4) 1.8 mg/dL 03/01/25, 09:50 Calcium 10 mg/dL 03/03/25, 15:30 Albumin 4.9 g/dL 03/03/25, 15:30 Glucose 81 mg/dL 03/03/25, 15:30 Liver Function Panel: ALT 18 U/L 03/03/25, 15:30 AST 17 U/L 03/03/25, 15:30 Coagulation Panel: INR, (0.9-1.1) 1.0 02/28/25, 09:08 PT, (9.1-11.1) 10.0 sec 02/28/25, 09:08 Cardiac Panel: Troponin I, (<or=76) 10 ng/L 03/01/25 Pancreas Panel: Lipase, (<78) 24 U/L 02/28/25, 09:08 Thyroid Panel: TSH, (0.36-3.74) 2.42 uIU/mL 02/26/25, 16:26 Infectious Disease: SARS-CoV-2 (PCR), (Negative) Negative 02/28/25, 10:10 COVID-19 Source Nasopharynx 02/28/25, 10:10 Influenza Type A (PCR), (Negative) Negative 02/28/25, 10:10 Influenza Type B (PCR), (Negative) Negative 02/28/25, 10:10 RSV (PCR), (Negative) Negative 02/28/25, 10:10 Toxicology Panel: Ethyl Alcohol, (<10) 3.9 mg/dL 02/28/25, 09:08 Ur Amphetamines Screen, (Negative) Negative 02/28/25, 11:13 U Benzodiazepines Scrn, (Negative) Negative 02/28/25, 11:13 Ur Barbiturates Screen, (Negative) Negative 02/28/25, 11:13 Urine Cocaine Screen, (Negative) Negative 02/28/25, 11:13 Urine Methadone Screen, (Negative) Negative 02/28/25, 11:13 Urine Opiates Screen, (Negative) Negative 02/28/25, 11:13 Ur Tricyclics Screen, (Negative) Negative 02/28/25, 11:13 Ur THC Screen, (Negative) Negative 02/28/25, 11:13 Imaging and Studies Imaging and Studies Study information below may be from another EMR and interpreted by another provider. Please see original notes in EMR for more complete details. EKG Summary: 03/01/25: Exam: Resting ECG Reason for Exam: arm numb Patient Location: E HR:67 bpm ECG Measurements Heart Rate 67 AXIS GA 150 P 26 QRSd 98 QRS 79 QT 396 T55 QTc 417 Conclusion Sinus rhythm 67 normal axis no stemi I have reviewed and I agree with the emergency room physician's ECG interpretation. Pulmonary Function Summary: 11/27/23: Pulmonary Function Test Result Indications: Reactive airways disease Interpretation Spirometry: Although the FEV1/FVC ratio is normal, mild airflow obstruction is likely given the flow volume loop and volume time curve appearance. There was a 26% decrease in FEV1 with administration of 0.25mg/dL methacholine. Lung Volumes: There is air trapping Diffusion Capacity: Normal diffusion Airway Pressure: Normal airways resistance Impression Positive methacholine challenge with likely some baseline airflow obstruction. Clinical Correlation therefore is recommended. Anesthesia Assessment and Plan Anesthesia History Personal History: Delayed Emergence Family History: No Family History of Anesthesia Complications Exercise Tolerance Exercise Tolerance: Metabolic Equivalents>4 Pertinent Negatives Pertinent Negatives: No Major Cardiovascular Symptoms or Complaints and No Major Pulmonary Symptoms or Complaints Cardiac & Pulmonary Exam Cardiac Exam: Normal S1/S2 Heart Sounds Pulmonary Exam: Clear Bilateral Breath Sounds Implantable Cardiac Device Does patient have a Pacemaker or an ICD?: No Airway Exam Known Difficult Airway: No Mallampati Class: 2 Mouth Opening: Normal (> 3cm) Thyromental Distance: Greater than 3 cm Neck Range of Motion: Full ROM Neck Circumference: Normal Teeth Condition: Normal Dentition ASA Classification ASA Score: ASA 2 Emergency Case?: No NPO Status NPO Status: NPO Clears >2 hours, Solids >8 hours Anesthesia Plan Resuscitation Status: Full Code Anesthesia Technique: General Anesthesia Airway Planned: Natural Airway Monitors Used: Standard Monitors
[2025-03-26 11:51] VITALS: BMI 30.9
--- NOTE | 2025-03-26 12:04 | BOWEL_PTH ---
PATIENT: Ha Alcazar LOC: [facility] U#:[id number] AGE/SX: 39/M ROOM: RE03/26/[address]: Amina Us MD : [id number] BED: DIS: 03/26/2025 SPEC #: [id number] RECD: 03/26/25 13:00 STATUS: SUNIL ROACH #: [id number] MANUEL: 03/26/25 12:[address]: Amina Us DEPT: Surgical Specimen RECD BY: Dariana Oconnell ENTERED: 03/26/25 13:01 SP TYPE: Bowel OTHR DR: Gemini Emanuel, FIELD SUPPORT TECHNICIAN Tissues: 1 - BIOPSY BOWEL 2 - STOMACH BIOPSY Procedures: GROSS AND MICRO LEVEL 4 Comments: [id number]
[2025-03-26 12:28] VITALS: BP 104/70; PULSE 72; RESP 12; TEMP 36.3; O2SAT 95
--- NOTE | 2025-03-26 12:28 | ENDO_ITS ---
Date of service: 03/26/25 Time of Service: 12:28 Endoscopy Report DATE OF PROCEDURE: 03/26/25 PRE-OP DIAGNOSIS: epigastric pain, nausea POST-OP DIAGNOSIS: other (Hiatal hernia with esophagitis, chronic antral gastritis) PROCEDURE: EGD with biopsy ANESTHESIA TYPE: MAC ESTIMATED BLOOD LOSS: 1 PATHOLOGY: other (1. duodenum biopsy. 2. antrum biopsy. ) COMPLICATIONS: None DISPOSITION: same day PROCEDURE DESCRIPTION: Informed consent was obtained. The patient was placed in a recumbant left decubitus position on the procedure table. A timeout was performed. A bite block was placed. A lubricated endoscope was passed through the mouth into the second portion of the duodenum. The endoscope was withdrawn, and the mucosa of the upper digestive tract examined. The duodenal mucosa appeared normal without inflammatory change. Given the patient's diarrhea symptoms a cold forcep biopsy was obtained to evaluate for celiac sprue. The pylorus was patent. The gastric antrum appeared consistent with mild chronic gastritis. There was erythema and friability of the antrum present. Cold forceps biopsy was obtained for Helicobacter pylori testing. The gastric fundus appeared unremarkable. The gastric cardia was unremarkable. The endoscope was retroflexed and the hiatus was examined. There is evidence of small hiatal hernia present. The gastroesophageal junction was located at 38 cm from the teeth. The Z-line appeared regular. The distal esophagus was mildly inflamed consistent with mild esophagitis. Remainder of the esophagus was normal and patent without obstruction or abnormal mucosal lesions. The stomach was desufflated and the endoscope withdrawn No complications. ASSESSMENT AND PLAN: Gastritis and a hiatal hernia with esophagitis were noted on exam today. No evidence of peptic ulcer or gastric mass lesion. The patient's symptoms have improved since he was placed on pantoprazole 40 mg daily. I suspect his symptoms are from gastritis and esophagitis, and continuing this medication regimen at this time will help to resolve his symptoms further. Continue famotidine at nighttime as previously prescribed by the primary care physician. I would plan to continue the pantoprazole for 3 months and then reevaluate. The presence of hiatal hernia suggest that he may intermittently need proton pump inhibitor to control reflux related symptoms. No indication at this time for him to take it indefinitely. I would like to see him back in the office in 6 weeks and we will assess his symptoms, and his medication plan. I will follow- up on duodenal biopsy and H. pylori testing and notify the patient if positive.
--- NOTE | 2025-03-26 12:28 | W.PM.DSUDISC ---
Date of service: 03/26/25 Discharge Plan Disposition Patient Disposition: Home Condition: Stable Discharge Details Attending Provider: Amina sU Primary Care Provider: Gemini Emanuel Home Meds and New Rx's Prescriptions: No Action albuterol sulfate [Proventil HFA] 90 mcg/actuation HFA aerosol inhaler 2 puff inhalation Q6H PRN (Reason: shortness of breath or wheezing) Qty: 8.5 0RF famotidine 40 mg tablet 40 mg PO QHS Qty: 30 2RF pantoprazole 40 mg tablet,delayed release (DR/EC) 40 mg PO DAILY Qty: 30 2RF buprenorphine-naloxone 4-1 mg film 1 film sublingual DAILY Discharge Instructions Instructions: Esophagitis, Hiatal hernia, Gastritis Additional Instructions: EGD today shows irritation from acid as the probable reason for your symptoms. Your stomach lining is raw and your esophagus is irritated. You have a small hiatal hernia (see attached reading material to learn more) that allows reflux and acid irritation. Continue our current plan with pantoprazole in the morning and famotidine in the evening. See me in 6 weeks on 05/06/2025 AT 8AM. If that time doesnt work please call the office and change it. No diet changes beyond what you have already adjusted at home. Activity:: Activity as Tolerated Diet:: As Tolerated Discharge Orders Discharge Orders: Discharge Order (Routine); Ordered 03/26/25 Ordered By: Amina Us DS: Diagnosis Discharge Diagnosis (1) Hiatal hernia with gastroesophageal reflux disease and esophagitis: Status: Acute (2) Chronic antral gastritis: Status: Acute (3) Epigastric pain: Status: Acute
--- NOTE | 2025-03-26 12:31 | W.ANESPOSTOP ---
Postoperative Evaluation Date, Time and Location Date Performed: 03/26/25 Time Performed: 12:30 Patient Location: Day Surgery Unit Vital Signs Most Recent Imported Vital Signs: Most Recent Vital Signs Temp Pulse Resp BP Pulse Ox 36.3 C L 72 12 104/70 95 03/26/25 12:28 03/26/25 12:28 03/26/25 12:28 03/26/25 12:28 03/26/25 12:28 Pain Score Most Recent Pain Score: Most Recent Pain Score Pain Level 0 03/26/25 12:28 Assessment Mental Status: Awake (Alert & Oriented to Patient Baseline) Airway and Respiratory Function: Patent airway with normal (patient baseline) respiratory exam Cardiovascular Function: Hemodynamically Stable Hydration Status: Adequately Hydrated Nausea & Vomiting: No Nausea or Vomiting Pain: Pt. Denies Any Pain Peripheral Nerve Block: Patient did not receive a nerve block
[2025-03-26 12:56] VITALS: BP 111/59; PULSE 64; RESP 12; TEMP 36.3; O2SAT 94
== END 2025-03-26 13:03 | disposition home or self-care (01) ==
PROVIDERS: PCP Nurse Practitioner Family; Visit Provider Surgery
PROC: 0DJ68ZZ Inspection of Stomach, Via Natural or Artificial Opening Endoscopic (ICD-10-PCS; CPT 43235; principal; 2025-03-26 12:30)
DX: R10.13 Epigastric pain (principal); K44.9 Diaphragmatic hernia without obstruction or gangrene; K21.00 Gastro-esophageal reflux disease with esophagitis, without bleeding; K29.50 Unspecified chronic gastritis without bleeding; K31.89 Other diseases of stomach and duodenum
CPT/HCPCS: 43239; 88305; J2250; J2704

== ENCOUNTER 2025-04-08 21:36 | Outpatient (CLI) | payer BC, SELFPAY ==
[2025-04-08 16:00] LABS: Glucose Negative (Negative)
[2025-04-08 18:21] LABS: TSH (W/Ref FT4) 2.78 uIU/mL (0.36-3.74)
== END 2025-04-08 21:37 | disposition home or self-care (01) ==
LOC: LBO 21:37
PROVIDERS: PCP Nurse Practitioner Family; Visit Provider Surgery
DX: K44.9 Diaphragmatic hernia without obstruction or gangrene (principal); K21.00 Gastro-esophageal reflux disease with esophagitis, without bleeding; N39.44 Nocturnal enuresis; R10.9 Unspecified abdominal pain; G89.29 Other chronic pain; R53.81 Other malaise; R53.83 Other fatigue
CPT/HCPCS: 36415; 81003; 84443

== ENCOUNTER 2025-07-03 14:08 | Outpatient (CLI) | payer BC, SELFPAY ==
[2025-07-03 15:46] LABS: ALT 27 U/L (16-63); AST 17 U/L (15-37); Albumin 4.1 g/dL (3.4-5.0); Alkaline Phosphatase 73 U/L (46-116); Bilirubin, Direct 0.1 mg/dL (0.0-0.2); Bilirubin, Total 0.3 mg/dL (0.2-1.0); Lipase 26 U/L (<78); Total Protein 7.7 g/dL (6.4-8.2)
== END 2025-07-03 14:09 | disposition home or self-care (01) ==
LOC: LBO 14:08
PROVIDERS: PCP Nurse Practitioner Family; Visit Provider Surgery
DX: R10.13 Epigastric pain (principal)
CPT/HCPCS: 36415; 80076; 83690

== ENCOUNTER → 2025-07-08 01:13 | Outpatient (CLI) | payer BC, SELFPAY ==
--- NOTE | 2025-07-08 06:30 | DI.NM_ITS ---
Exam(s) NM HEPATOBILIARY CCK GRP EXAM: NM HEPATOBILIARY CCK GRP CLINICAL HISTORY: abd AND EPIGASTRIC pain, persistent. TECHNIQUE: Injected dose: 5 mCi Tc-99 mebrofenin Initial dynamic images: 60 minutes Post-Gallbladder fillin.02 mcg/kg CCK intravenously over a 30min infusion. Additional images: 30 minute dynamic during CCK administration. COMPARISON: US US ABDOMEN from 03/18/2025 FINDINGS: Normal hepatic transit time. Prompt excretion into the small bowel. Prompt excretion into the gallbladder. Gallbladder ejection fraction: 56 percent, in the normal range The patient did not experience pain with CCK infusion. IMPRESSION: 1. Normal gallbladder ejection fraction. SNM guidelines: Gallbladder visualization should be present by 3 hours. Delayed [id number] transit beyond 60 min raises the suspicion for partial common bile duct (CBD) obstruction. Gallbladder ejection fraction <35% has a good correlation with acalculous disease (i.e., chronic acalculous cholecystitis, cystic duct syndrome, sphincter of Oddi disease).
[2025-07-08] MEDS: Sincalide 5 MCG VIAL 1.5 MCG IJ (12:46)
[2025-07-08] MEDS: Water,Injection,Sterile 10 ML VIAL IJ (12:47)
== END ==
LOC: DI 01:13
PROVIDERS: PCP Nurse Practitioner Family; Visit Provider Surgery
DX: R10.13 Epigastric pain (principal); R10.9 Unspecified abdominal pain; R11.0 Nausea
CPT/HCPCS: 78227; J2805